=== PATIENT | male | born 1945 | race Caucasian/White ===

== ENCOUNTER 2019-07-13 12:23 | Emergency (ER) | payer OTHER ==
--- OUTSIDE RECORDS SUMMARY | 2019-07-13 13:12 | XMS REPORT | Encounter Summary ---
:1945 Author Care Team Providers Name Role Phone Hernandez Mancuso MD Primary Care Provider [phone] Reason for Visit Diabetic neuropathy; Diabetic on insulin ; Telemedicine Visit Instructions 1. Diabetic neuropathy 2. Hyperlipidemia high cholesterol: care ins tructions 3. Recurrent major depression in remission 4. Diabetic on insulin Discussion Note Completed a telephone visit with ney millan. Patient report he has enough meds currently and does not need any refills currently. Patient encouraged to wash hands frequently for 20 seconds, practice soci al distancing by stay home and maintaining physical space in public. Patient encour aged to seek medical care if he starts having continues cough, fever and sob. Patient verbalized understanding. Plan of Care Reminders Provider Appointments None recorded. Lab None recorded. Referral None recorded. Procedures None recorded. Surgeries None recorded. Imaging None recorded. Medications Name Start Date gabapentin 300 mg capsule Take 1 capsule 3 times a day by oral route. lovastatin 20 mg tablet Take 1 tablet every day by oral route. metformin 1,000 mg tablet Take 1 tablet twice a day by oral route. Tresiba FlexTouch U-100 insulin 100 unit/mL (3 mL) sub cutaneous pen Inject 15 units by subcutaneous route. Zoloft 100 mg tablet Take 1 tablet every day by oral route. Medications Administered None recorded. Vitals None recorded. Results Lab Results None recorded. Allergies Code Code System Name Reaction Severity Status Onset NKDA Problems Name Status Onset Date Source Diabetic Neuropathy Active 05/13/2019 Hyperlipidemia Active 05/13/2019 Recurrent Major Depression in Remission Active 05/13/19 20 Diabetic on Insulin Active 05/13/2019 Procedures None recorded. Vaccine List Vaccine Type influenza, injectable, quadrivalent 11/25/2018 Social History Tobacco Smoking Status Former Smoker Past Encounters 05/25/2019 Diabetic Neuropathy; Hyperlipidemia; Rec urrent Major Depression in Remission; Diabetic on Insulin Natasha Alexandre, TYPEWRITER ASSEMBLER: [address], [address], [place] [address], Ph. History of Present Illness Note: I confirm that I received verbal consent from the patient for the virtual visit. {{yes*|no}}
I confirm that I received verbal consent from the patient for the virtual visit. Review of Systems Comprehensive General Adult ROS Reported By: Patient Constitutional: Constitutional: no fever, no night sweats, no significant weight gain, no significant weight loss, no exercise intolerance Eyes: Eyes: no dry eyes, no vision change, no irritation ENMT: Ears: no difficulty hearing, no ear pain. Nose: no frequent nosebleeds, no nose problems , no sinus problems. Mouth/Throat: no sore throat, no bleeding gums, no snoring, no dry mouth, no mouth ulcers, no oral abnorm alities, no teeth problems Cardiovascular: Cardiovascular: no chest pato n, no arm pain on exertion, no shortness of breath when [place], no shortness of breath when lying down, no palpitations, no known heart murmur, no lightheadedness Respiratory: Respiratory: no cough, no wh eezing, no shortness of breath, no coughing up blood, no sleep apnea Gastrointestinal: Gastrointestinal: no abdomin al pain, no nausea, no vomiting, no constipation, normal appe tite, no diarrhea, not vomiting blood, no dyspepsia, no GERD Genitourinary: Genitourinary: no incontinen ce, no difficulty urinating, no hematuria, no increased freq uency Musculoskeletal: Musculoskeletal: no muscle a ches, no muscle weakness, no arthralgias/joint pain, no b ack pain, no swelling in the extremities Integumentary: Skin: no abnormal mole, no j aundice, no rashes, no laceration Neurologic: Neurologic: no loss of consc iousness, no weakness, no numbness, no seizures, no di zziness, no migraines, no headaches, no tremor Psychiatric: Psych: no depression, no sle ep disturbances, feeling safe in a relationship, no alcohol abu se, no anxiety, no hallucinations, no suicidal thoughts Endocrine: Endocrine: no fatigue Hematologic/Lymphatic: Hematologic/Lymphatic no swo llen glands, no bruising, no excessive bleeding Allergic/Immunologic: Allergy/Immunologic: no runn y nose, no sinus pressure, no itching, no hives, no freque nt sneezing Physical Exam Telemedicine/Virtual Visit Reported By: Patient"
--- OUTSIDE RECORDS SUMMARY | 2019-07-13 13:12 | XMS REPORT ---
:[address] [facility] Address [address] [place] [address] [place] [address] Care Team Providers Name Role Phone Unavailable Unavailable Unavailable Problems Condition Condition Condition Status Onset Resolution Last Treating Co mments Source Name Details Category Date Date Treatment Clinician Date Diabetic Diabetic Problem Active Decker ge neuropathy Neuropathy 3-18 Fa mecca 00:00: Practic 00 e Hyperlipid Hyperlipid Problem Active V [facility]age emia emia 3-18 Family 00:00: Practic 00 e Recurrent Recurrent Problem Active Jhoan josé miguel major Major 3-18 Family depression Depression 00:00: Pr actic in in 00 e remission Remission Diabetic Diabetic Problem Active Decker ge on insulin on Insulin 05-12 Fa mecca 00:00: Practic 00 e Allergies, Adverse Reactions, Alerts This patient has no known allergies or adverse reactions. Social History Smoking Status Start Date Stop Date Source Former [facility] Medications Ordered Filled Start Stop Current Ordering Indication Dosage Frequency Signature Comments Components Source Medication Medication Date Date Medication? Clinician (SIG) Name Name gabapentin gabapentin No 1capsul TID gabapentin [facility] 300 mg 300 mg e(s) 300 mg Family capsule capsule capsule Practi c Take 1 Take 1 Take 1 e capsule 3 capsule 3 capsule 3 times a day times a day times a by oral by oral day by route. route. oral route. lovastatin lovastatin No 1 Q1D lovastatin [facility] 20 mg 20 mg 20 mg Family tablet Take tablet Take tablet Practic 1 tablet 1 tablet Take 1 e every day every day tablet by oral by oral every day route. route. by oral route. metformin metformin No 1 BID metformin [facility] 1,000 mg 1,000 mg 1,000 mg Fam huber tablet Take tablet Take tablet Practic 1 tablet 1 tablet Take 1 e twice a day twice a day tablet by oral by oral twice a route. route. day by oral route. Tresiba Tresiba No 15unit( Tresiba Jhoan josé miguel FlexTouch FlexTouch s) FlexTouch Family U-100 U-100 U-100 Practic insulin 100 insulin 100 insulin e unit/mL (3 unit/mL (3 100 mL) mL) unit/mL (3 subcutaneou subcutaneou mL) s pen s pen subcutaneo Inject 15 Inject 15 us pen units by units by Inject 15 subcutaneou subcutaneou units by s route. s route. subcutaneo us route. Zoloft 100 Zoloft 100 No 1 Q1D Zoloft 100 [facility] mg tablet mg tablet mg tablet Family Take 1 Take 1 Take 1 Practic tablet tablet tablet e every day every day every day by oral by oral by oral route. route. route. Immunizations Ordered Immunization Filled Immunization Date Status Commen ts Source Name Name influenza, influenza, 2018-11-25 Completed Kunal Banegas injectable, injectable, 00:00:00 Practice quadrivalent quadrivalent Procedures This patient has no known procedures. 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 Results This patient has no known results.
--- OUTSIDE RECORDS SUMMARY | 2019-07-13 13:12 | XMS REPORT | Encounter Summary ---
:1945 Author Care Team Providers Name Role Phone Hernandez Mancuso MD Primary Care Provider [phone] Reason for Visit Diabetic neuropathy; Diabetic on [...] in Remission; Diabetic on Insulin Natasha Alexandre, ENGINE EMISSION TECHNICIAN: [address], [address], [place] [address], Ph. History of Present Illness Note: I [...] exertion, no shortness of breath when wal [place], no shortness of breath when lying down, [...]
[2019-07-13] MEDS ORDERED: LIDOCAINE VISCOUS 2% SOLN 15 ML UDC ONE (14:39)
[2019-07-13] MEDS ORDERED: IBUPROFEN 400 MG TAB ONE (14:41)
[2019-07-13] MEDS ORDERED: IBUPROFEN 200 MG TAB PO ONE (14:41)
[2019-07-13] MEDS ORDERED: predniSONE 20 MG TAB ONE (15:05)
--- NOTE | 2019-07-13 15:23 | ER ---
Nurse's Notes [facility] Name: Mati Aragon Age: 73 yrs Sex: Male : 1945 Arrival Date: 07/13/2019 Time: 12:27 Bed 17 Private MD: Diagnosis: Toxic effect of venom of wasps Presentation: 07/12 12:35 Chief complaint: Patient states: yellow jacket sting to R FA 30 minutes ago. ss Coronavirus screen: Proceed with normal triage. Patient denies a cough. Patient denies shortness of breath or difficulty breathing. Patient denies measured and/or subjective temperature greater than 100.4F prior to today's visit. Patient denies travel on a cruise ship or to a country the [facility] currently lists as an affected area. Patient denies contact with known and/or suspected case of COVID-19. Ebola Screen: Patient denies exposure to infectious person. Patient denies travel to an Ebola-affected area in the 21 days before illness onset. Onset: The symptoms/episode began/occurred 30 minute(s) ago. Anaphylaxis evaluation, the patient reports or I have noted the following symptoms which indicate a significant risk of anaphylaxis: no signs or symptoms of anaphylaxis were noted. Initial Sepsis Screen: Does the patient meet any 2 criteria? No. Patient's initial sepsis screen is negative. Does the patient have a suspected source of infection? No. Patient's initial sepsis screen is negative. Risk Assessment: Do you want to hurt yourself or someone else? Patient reports no desire to harm self or others. Onset of symptoms was July 13, 2019. 12:35 Method Of Arrival: Ambulatory ss 12:35 Acuity: ROSIE 4 ss Historical: - Allergies: 12:37 No Known Allergies; ss - Immunization history:: Adult Immunizations up to date. - Social history:: Smoking status: Patient denies any tobacco usage or history of. Screenin:29 Abuse screen: Denies threats or abuse. Nutritional screening: No deficits noted. tw2 Tuberculosis screening: No symptoms or risk factors identified. Fall Risk None identified. Assessment: 14:22 General: Appears uncomfortable, slender, well groomed, Behavior is cooperative, tw2 anxious. Pain: Complains of pain in dorsal aspect of right forearm Pain began "as soon as that yellow jacket stung me it started hurting like a hot fire poker is poking right into my arm, i didn't have any Benadryl or i would have took some but i drove myself here today too". Neuro: Level of Consciousness is awake, alert, obeys commands, Oriented to person, place, time, situation. Cardiovascular: Heart tones S1 S2 Patient's skin is warm and dry. Respiratory: Airway is patent Respiratory effort is even, unlabored, Respiratory pattern is regular, symmetrical, Breath sounds are clear bilaterally. Denies cough, shortness of breath labored breathing. GI: No signs and/or symptoms were reported involving the gastrointestinal system. Abdomen is flat, distended, Bowel sounds present X 4 quads. : No signs and/or symptoms were reported regarding the genitourinary system. EENT: No signs and/or symptoms were reported regarding the EENT system. Derm: quarter size redness noted to palmar wrist area. Musculoskeletal: Circulation, motion, and sensation intact. Range of motion: intact in all extremities. 15:01 Reassessment: Patient appears in no apparent distress at this time. No changes from tw2 previously documented assessment. Patient and/or family updated on plan of care and expected duration. Pain level reassessed. Patient is alert, oriented x 3, equal unlabored respirations, skin warm/dry/pink. 15:37 Reassessment: Patient appears in no apparent distress at this time. No changes from tw2 previously documented assessment. Patient and/or family updated on plan of care and expected duration. Pain level reassessed. Patient is alert, oriented x 3, equal unlabored respirations, skin warm/dry/pink. 15:38 Reassessment: pt states " i gotta go dip i just gotta get outta here". tw2 Vital Signs: 12:35 BP 125 / 63; Pulse 91; Resp 18; Temp 98.4(TE); Pulse Ox 96% on R/A; Weight 83.46 kg; ss Height 5 ft. 10 in. (177.80 cm); 14:27 BP 134 / 56; Pulse 76; Resp 17; Pulse Ox 98% on R/A; Pain 10/10; tw2 12:35 Body Mass Index 26.40 (83.46 kg, 177.80 cm) ED Course: 12:27 Patient arrived in ED. mr 12:37 Triage completed. ss 12:37 Arm band placed on right wrist. ss 13:25 Bed in low position. Call light in reach. Pulse ox on. NIBP on. tw2 13:32 Patrica Paulino, RN is Primary Nurse. tw2 14:30 Baldemar Mace PA is PHCP. cp 14:30 Chirag Bryan MD is Attending Physician. cp 15:37 No provider procedures requiring assistance completed. Patient did not have IV access tw2 during this emergency room visit. Administered Medications: 14:34 CANCELLED (Duplicate Order): Ibuprofen 800 mg PO once tw2 14:37 Drug: Lidocaine Gel 2 % 1 ea {Note: topical to bite area inner Right wrist.} Volume: 15 tw2 ml; Route: Mucous Membrane; 14:58 Not Given (Patient Refused; pt states "i dont want the ibuprofen"): Ibuprofen 600 mg PO tw2 once 15:04 Drug: predniSONE 40 mg Route: PO; tw2 15:37 Follow up: Response: No adverse reaction tw2 Outcome: 15:23 Discharge ordered by MD. cp 15:37 Discharged to home ambulatory. tw2 15:37 Condition: stable 15:37 Discharge instructions given to patient, Instructed on discharge instructions, follow up and referral plans. medication usage, Demonstrated understanding of instructions, follow-up care, medications, Prescriptions given X 1. 15:39 Patient left the ED. tw2 Signatures: Charley Vizcaino Shelby RN Baldemar Finnegan PA PA cp Patrica Paulino RN RN tw2
--- NOTE | 2019-07-13 15:24 | EDPHYS ---
Physician Documentation [facility] Name: Mati Aragon Age: 73 yrs Sex: Male : 1945 Arrival Date: 07/13/2019 Time: 12:27 Bed 17 Private MD: ED Physician Chirag Bryan HPI: 07/12 14:40 This 73 yrs old Male presents to ER via Ambulatory with complaints of Bee cp Sting. 14:40 The patient or guardian complains of a bite, wasp sting, pain, that is acute. The cp complaints affect the palmar aspect of right forearm. Onset: The symptoms/episode began/occurred this morning. 14:40 Patient reports pain and burning to area of right forearm where he was stung by wasp. cp Patient concerned due to have anaphylactic type reaction as child after being stung by bee. Historical: - Allergies: 12:37 No Known Allergies; ss - Immunization history:: Adult Immunizations up to date. - Social history:: Smoking status: Patient denies any tobacco usage or history of. ROS: 14:50 Skin: Positive for erythema, swelling, insect sting right forearm. cp 14:50 Constitutional: Negative for fever. cp 14:50 ENT: Negative for sore throat, difficulty swallowing, difficulty handling secretions. 14:50 Respiratory: Negative for cough, shortness of breath, wheezing. 14:50 Abdomen/GI: Negative for nausea, vomiting. 14:50 MS/extremity: Positive for pain, of the right forearm, burning, Negative for decreased range of motion, deformity, paresthesias. 14:50 Neuro: Negative for altered mental status, headache, syncope, weakness. 14:50 All other systems are negative. Exam: 14:45 Constitutional: The patient appears in no acute distress, alert, awake, cp non-diaphoretic, non-toxic, well developed, well nourished, anxious. 14:45 Head/Face: Normocephalic, atraumatic. cp 14:45 Eyes: Periorbital structures: appear normal, Conjunctiva: normal, no exudate, no injection, Lids and lashes: appear normal, bilaterally. 14:45 ENT: External ear(s): are unremarkable, Nose: is normal, Mouth: Lips: moist, Oral mucosa: moist, Posterior pharynx: Airway: no evidence of obstruction, patent, Voice: is normal. 14:45 Chest/axilla: Inspection: normal. 14:45 Cardiovascular: Rate: normal, Edema: is not appreciated. 14:45 Respiratory: the patient does not display signs of respiratory distress, Respirations: normal, no use of accessory muscles, no retractions, labored breathing, is not present, Breath sounds: are clear throughout, no decreased breath sounds, no wheezing. 14:45 Skin: injury, wasp sting noted right forearm with mild swelling and erythema noted. Vital Signs: 12:35 BP 125 / 63; Pulse 91; Resp 18; Temp 98.4(TE); Pulse Ox 96% on R/A; Weight 83.46 kg; ss Height 5 ft. 10 in. (177.80 cm); 14:27 BP 134 / 56; Pulse 76; Resp 17; Pulse Ox 98% on R/A; Pain 10/10; tw2 12:35 Body Mass Index 26.40 (83.46 kg, 177.80 cm) ss MDM: 14:34 Patient medically screened. cp 14:45 Differential diagnosis: abscess, cellulitis, localized allergic reaction, anaphylaxis. cp 15:22 Data reviewed: vital signs, nurses notes, and as a result, I will discharge patient. cp Administered Medications: 14:34 CANCELLED (Duplicate Order): Ibuprofen 800 mg PO once tw2 14:37 Drug: Lidocaine Gel 2 % 1 ea {Note: topical to bite area inner Right wrist.} Volume: 15 tw2 ml; Route: Mucous Membrane; 14:58 Not Given (Patient Refused; pt states "i dont want the ibuprofen"): Ibuprofen 600 mg PO tw2 once 15:04 Drug: predniSONE 40 mg Route: PO; tw2 15:37 Follow up: Response: No adverse reaction tw2 Disposition: 15:35 Chart complete. cp Disposition: 07/13/19 15:23 Discharged to Home. Impression: Toxic effect of venom of wasps. - Condition is Stable. - Discharge Instructions: Bee, Wasp, or Hornet Sting, Adult. - Prescriptions for Prednisone 20 mg Oral Tablet - take 2 tablet by ORAL route once daily for 5 days; 10 tablet. - Medication Reconciliation Form, Thank You Letter, Antibiotic Education, Prescription Opioid Use form. - Follow up: Private Physician; When: 1 - 2 days; Reason: Worsening of condition. - Problem is new. - Symptoms have improved. Addendum: 07/20/2019 07:07 Co-signature as Attending Physician, Chirag Bryan MD. r n Signatures: Chirag Bryan MD MD rn Smirch, Shelby, RN RN ss Page, Corey, PA PA cp Patrica Paulino RN RN tw2 Corrections: (The following items were deleted from the chart) 07/12 14:34 14:33 Ibuprofen 800 mg PO once ordered. tw2 tw2 14:34 14:34 Ibuprofen 800 mg PO once ordered. tw2 tw2 15:39 15:23 07/13/2019 15:23 Discharged to Home. Impression: Toxic effect of venom of wasps. tw2 Condition is Stable. Forms are Medication Reconciliation Form, Thank You Letter, Antibiotic Education, Prescription Opioid Use. Follow up: Private Physician; When: 1 - 2 days; Reason: Worsening of condition. Problem is new. Symptoms have improved. cp
[2019-07-13 15:44] VITALS: TEMP 98.4
[2019-07-13 15:45] VITALS: BP 134/56; O2SAT 98
== END 2019-07-13 15:39 | disposition home or self-care (01) ==
LOC: ER 12:23
DX: T63.461A Toxic effect of venom of wasps, accidental (unintentional), initial encounter (principal); Y92.9 Unspecified place or not applicable
CPT/HCPCS: 99283; J7512

== ENCOUNTER 2019-07-16 14:33 | Emergency (ER) | payer OTHER ==
--- OUTSIDE RECORDS SUMMARY | 2019-07-16 14:42 | XMS REPORT ---
:1945 Author Organization [facility] Address [address] [place] [address] Care Team Providers Name Role Phone Unavailable [...] Active Decker ge on insulin on Insulin 18 Fa mecca 00:00: Practic 00 e Allergies, Adverse Reactions, Alerts This patient has no known allergies or adverse reactions. Social History Smoking Status Start Date Stop Date Source Former [facility] Medications Ordered Filled Start Stop Current Ordering Indication Dosage Frequency Signature Comments Components Source Medication Medication Date Date Medication? Clinician (SIG) Name Name gabapentin gabapentin No 1capsul TID gabapentin [facility] 300 mg 300 mg e(s) 300 mg Family capsule capsule capsule Practi c Take 1 Take 1 Take 1 e capsule 3 capsule 3 capsule 3 times a day times a day times a by oral by oral day by route. route. oral route. lovastatin lovastatin No 1 Q1D lovastatin [facility] 20 mg 20 mg 20 mg Family tablet Take tablet Take tablet Practic 1 tablet 1 tablet Take 1 e every day every day tablet by oral by oral every day route. route. by oral route. 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 Results This patient has no known results.
[2019-07-16] MEDS ORDERED: LORazepam 2 MG/ML VIAL ONE (15:39)
[2019-07-16] MEDS ORDERED: ONDANSETRON 4 MG/2 ML VIAL ONE (15:43)
[2019-07-16] MEDS ORDERED: FENTANYL CITR 100 MCG/2 ML ONE (15:43)
[2019-07-16] MEDS ORDERED: NA CHLORIDE 0.9% 1,000 ML ONE ×2 (15:55→17:50)
[2019-07-16 15:57] LABS: Absolute Lymphocytes (CBC) 2.9 K/uL (0.7-4.9); Basophils % 0.4 % (0-1.3); Hematocrit 35.7 % (39.6-49.0); Lymphocytes % 25.3 % (15.3-44.8); RBC Red Blood Cell Count 4.17 M/uL (4.33-5.43)
[2019-07-16 15:58] LABS: Protime INR 1.1
--- NOTE | 2019-07-16 16:00 | RAD REPORT ---
EXAM DESCRIPTION: CT - Head Brain Wo Cont - 07/16/2019 3:52 pm CLINICAL HISTORY: Alteration of awareness/confusion COMPARISON: None TECHNIQUE: Computed axial tomography of the head was obtained. IV contrast was not requested. All CT scans are performed using dose optimization technique as appropriate and may include automated exposure control or mA/KV adjustment according to patient size. FINDINGS: An intracranial bleed is not seen . The ventricles are normal in caliber. No extra-axial fluid collection is noted. Mild left maxillary sinusitis. IMPRESSION: No acute intracranial abnormality is seen. If patient's symptoms persist MRI of the bra in would be recommended.
--- NOTE | 2019-07-16 16:22 | RAD REPORT ---
EXAM DESCRIPTION: Herminio Single View07/16/2019 4:00 pm CLINICAL HISTORY: Chest pain COMPARISON: none FINDINGS: The lungs appear clear of acute infiltrate. The heart is normal size IMPRESSION: No acute abnormalities displayed
[2019-07-16 16:37] LABS: ALT/SGPT 25 U/L (12-78); AST/SGOT 38 U/L (15-37); Albumin 3.8 g/dL (3.4-5.0); Alkaline Phosphatase 76 U/L (45-117); BUN Blood Urea Nitrogen 38 mg/dL (7-18); Bicarbonate 20 mmol/L (21-32); Bilirubin Direct 0.2 mg/dL (0-0.2); Bilirubin Total 0.5 mg/dL (0.2-1.0); Creatine Phosphokinase 457 U/L (39-308); Glucose Level 82 mg/dL (74-106); Magnesium 1.8 mg/dL (1.8-2.4); NT PRO-BNP 260 pg/mL (<125); Potassium 4.1 mmol/L (3.5-5.1); Protein, Total 8.1 g/dL (6.4-8.2); Sodium Level 138 mmol/L (136-145); Troponin (Emerg Dept Use Only) < 0.02 ng/mL (0.0-0.045)
[2019-07-16 17:08] LABS: Barbiturates NEGATIVE (NEGATIVE); Benzodiazepines NEGATIVE (NEGATIVE); Cocaine NEGATIVE (NEGATIVE); METHAMPHETAM NEGATIVE (NEGATIVE); Methadone NEGATIVE (NEGATIVE); Opiates NEGATIVE (NEGATIVE); Phencyclidine NEGATIVE (NEGATIVE); THC Cannibis NEGATIVE (NEGATIVE)
[2019-07-16 17:31] LABS: Urine Bacteria NONE SEEN /HPF (NONE SEEN); Urine RBC NONE SEEN /HPF (NONE SEEN)
[2019-07-16 17:32] LABS: Urine Culture Reflex Order NOT NEEDED
[2019-07-16 17:32] LABS: Urine Blood NEGATIVE (NEG); Urine Glucose NEGATIVE (NEG); Urine Protein NEGATIVE (NEG)
[2019-07-16] MEDS ORDERED: TETRACAINE HCL 0.5% 4ML OPTH ONE (17:50)
[2019-07-16] MEDS ORDERED: FLUORESCEIN SODIUM 1 MG/WRAP ONE (17:52)
--- NOTE | 2019-07-16 18:21 | RAD REPORT ---
EXAM DESCRIPTION: CTHead angio07/16/2019 5:56 pm CLINICAL HISTORY: Visual disturbance COMPARISON: None TECHNIQUE: CT angiogram of the head was obtained. 3D MIPS reconstruction performed. All CT scans are performed using dose optimization technique as appropriate and may include automated exposure control or mA/KV adjustment according to patient size. FINDINGS: The basilar, internal carotid, anterior cerebral, middle cerebral and left posterior cereb ral arteries are normal caliber. An aneurysm is not seen. Right posterior cerebral arterial branches are mildly diminished in caliber when compared to the left IMPRESSION: Right posterior cerebral arterial branches are mildly diminished in caliber when compare d to the left. This probably is not an acute/significant finding. However if the patient does have cl inical symptoms to suggest right posterior cerebral artery pathology MRI of the brain would be recomm ended
--- NOTE | 2019-07-16 19:00 | ER ---
Nurse's Notes [facility] Name: Mati Aragon Age: 73 yrs Sex: Male : 1945 Arrival Date: 07/16/2019 Time: 14:35 Bed 5 Private MD: Diagnosis: Injury of conjunctiva and corneal abrasion without foreign body;Altered mental status, unspecified Presentation: 07/15 14:56 Chief complaint: Patient's son or daughter states: Daughter, Anita, reports he feels jl7 like there is something is both of his eyes moving around, neighbor flushed them several times but no improvement. Daughter reports pt is acting out of the norm. BGL in triage 78. Coronavirus screen: Proceed with normal triage. Patient denies a cough. Patient denies shortness of breath or difficulty breathing. Patient denies measured and/or subjective temperature greater than 100.4F prior to today's visit. Patient denies travel on a cruise ship or to a country the [facility] currently lists as an affected area. Patient denies contact with known and/or suspected case of COVID-19. Ebola Screen: No symptoms or risks identified at this time. Mechanism of Injury: No Mechanism of Injury. Initial Sepsis Screen: Does the patient meet any 2 criteria? No. Patient's initial sepsis screen is negative. Does the patient have a suspected source of infection? No. Patient's initial sepsis screen is negative. Risk Assessment: Do you want to hurt yourself or someone else? Patient reports no desire to harm self or others. Onset of symptoms was July 16, 2019. Care prior to arrival: None. 14:56 Method Of Arrival: Wheelchair jl7 14:56 Acuity: ROSIE 3 jl7 Historical: - Allergies: 15:04 No Known Allergies; jl7 - Home Meds: 15:08 Tresiba FlexTouch U-100 100 unit/mL (3 mL) subcutaneous inpn [Active]; metformin 1,000 jl7 mg oral TG24 1 tab 2 times per day [Active]; levothyroxine 50 mcg tab 1 tab once daily [Active]; Zoloft 100 mg Oral tab 1 tab once daily [Active]; gabapentin 300 mg oral cap 3 times per day [Active]; lovastatin 20 mg Oral tab [Active]; aspirin 81 mg Oral TbEC 1 tab once daily [Active]; Ambien 10 mg Oral tab [Active]; - PMHx: 15:08 Diabetes - IDDM; jl7 15:08 Hyperlipidemia; Hypothyroidism; jl7 - Immunization history:: Adult Immunizations up to date. - Social history:: Smoking status: Patient denies any tobacco usage or history of. Screenin:10 Abuse screen: Denies threats or abuse. Nutritional screening: No deficits noted. rb1 Tuberculosis screening: No symptoms or risk factors identified. Fall Risk None identified. Assessment: 15:10 General: Appears distressed, Behavior is anxious, Denies fever. Pain: Complains of pain rb1 in bilateral eyes. 15:10 Neuro: Level of Consciousness is awake, alert, obeys commands, Daughter reports that rb1 his behavior is abnormal. . Cardiovascular: Capillary refill < 3 seconds. Respiratory: Airway is patent Respiratory effort is even, unlabored, Respiratory pattern is regular, symmetrical. GI: No signs and/or symptoms were reported involving the gastrointestinal system. : Reports burning with urination, Reports his urine stream starts but will stop and then start again. EENT: Eyes C/o pain when he tries to open his eyes and it feels like he has something is in his eyes.. Sclera/Cornea are clear in bilateral eyes. Derm: Skin is pink, warm \T\ dry. Musculoskeletal: Range of motion: intact in all extremities. 16:00 Reassessment: Pt. in CT. rb1 16:16 Reassessment: Patient appears in no apparent distress at this time. Patient and/or rb1 family updated on plan of care and expected duration. Pain level reassessed. Patient is alert, oriented x 3, equal unlabored respirations, skin warm/dry/pink. Patient states symptoms have improved. 17:12 Reassessment: Patient appears in no apparent distress at this time. No changes from rb1 previously documented assessment. 18:19 Reassessment: Patient appears in no apparent distress at this time. Patient and/or rb1 family updated on plan of care and expected duration. Pain level reassessed. Patient is alert, oriented x 3, equal unlabored respirations, skin warm/dry/pink. Patient states symptoms have improved. Vital Signs: 14:56 BP 129 / 60; Pulse 89; Resp 19; Temp 97.2; Pulse Ox 99% ; jl7 16:15 BP 119 / 54; Pulse 65; Resp 12; Pulse Ox 97% ; rb1 17:45 BP 117 / 66; Pulse 61; Resp 16; Pulse Ox 100% on R/A; rb1 18:25 BP 121 / 60; Pulse 68; Resp 13; Pulse Ox 100% ; rb1 ED Course: 14:35 Patient arrived in ED. as 15:04 Triage completed. jl7 15:08 Arm band placed on right wrist. jl7 15:10 Shaji Iverson PA is PHCP. jr8 15:10 Ken Li MD is Attending Physician. jr8 15:10 Patient has correct armband on for positive identification. Bed in low position. Call rb1 light in reach. Side rails up X2. monitoring analyst on. Pulse ox on. NIBP on. Warm blanket given. 15:10 Inserted saline lock: 20 gauge in right antecubital area, using aseptic technique. rb1 ,using aseptic technique. IV started by Zayra Blood collected. 15:11 Ivy Pierce, RN is Primary Nurse. rb1 15:53 CT Head Brain wo Cont In Process Unspecified. EDMS 15:59 XRAY Chest (1 view) In Process Unspecified. EDMS 17:57 CT Head Angio In Process Unspecified. EDMS 18:59 Shin Miller MD is Referral Physician. jr8 18:59 Jey King MD is Referral Physician. jr8 19:19 No provider procedures requiring assistance completed. IV discontinued, intact, rb1 bleeding controlled, No redness/swelling at site. Pressure dressing applied. Administered Medications: 15:35 Drug: Ativan 1 mg Route: IVP; Site: right antecubital; rb1 15:55 Follow up: Response: No adverse reaction; Anxiety decreased rb1 15:40 Drug: fentaNYL (PF) 50 mcg Route: IVP; Site: right antecubital; rb1 15:55 Follow up: Response: No adverse reaction; Pain is decreased rb1 15:40 Drug: Zofran (Ondansetron) 4 mg Route: IVP; Site: right antecubital; rb1 15:55 Follow up: Response: No adverse reaction rb1 16:10 Drug: NS 0.9% 1000 ml Route: IV; Rate: 1000 ml; Site: right antecubital; rb1 17:45 Drug: NS 0.9% 1000 ml Route: IV; Rate: 1000 ml; Site: right antecubital; bp 17:52 Drug: Tetracaine Drops 0.5 % 1 drops Route: Ophthalmic; Site: both eyes; bp Output: 18:21 Urine: 100ml (Voided); Total: 100ml. rb1 Outcome: 19:00 Discharge ordered by . jr8 19:19 Discharged to home ambulatory, with family. rb1 19:19 Condition: stable 19:19 Discharge instructions given to patient, Instructed on discharge instructions, follow up and referral plans. medication usage, Demonstrated understanding of instructions, follow-up care, medications, Prescriptions given X 1. 19:21 Patient left the ED. rb1 Signatures: Dispatcher [employer] EDMS Gregoria Romo Josh, PA PA jr8 Ivy Pierce, RN RN rb1 Jazmine Villegas RN RN jl7 Maurilio Adorno RN RN bp
--- NOTE | 2019-07-16 19:01 | EDPHYS ---
Physician Documentation [facility] Name: Mati Aragon Age: 73 yrs Sex: Male : 1945 Arrival Date: 07/16/2019 Time: 14:35 Bed 5 Private MD: ED Physician Ken Li HPI: 07/15 16:57 This 73 yrs old Male presents to ER via Wheelchair with complaints of Eye jr8 Problem/pain all over. 16:57 Patient stated that he feels like there is something in both his eyes. Denies getting jr8 anything in them. Had neighbor flush them. Stated that he has pain all over as well. Denies being in contact with an chemicals. Family member that is with patient stated that he is acting very different then what he normally does. Patient appears very agitated and uncomfortable in exam Room. Keeps holding back of neck. Severity of symptoms: At their worst the symptoms were moderate in the emergency department the symptoms are unchanged. The patient has not experienced similar symptoms in the past. The patient has not recently seen a physician. Historical: - Allergies: 15:04 No Known Allergies; jl7 - Home Meds: 15:08 Tresiba FlexTouch U-100 100 unit/mL (3 mL) subcutaneous inpn [Active]; metformin 1,000 jl7 mg oral TG24 1 tab 2 times per day [Active]; levothyroxine 50 mcg tab 1 tab once daily [Active]; Zoloft 100 mg Oral tab 1 tab once daily [Active]; gabapentin 300 mg oral cap 3 times per day [Active]; lovastatin 20 mg Oral tab [Active]; aspirin 81 mg Oral TbEC 1 tab once daily [Active]; Ambien 10 mg Oral tab [Active]; - PMHx: 15:08 Diabetes - IDDM; jl7 15:08 Hyperlipidemia; Hypothyroidism; jl7 - Immunization history:: Adult Immunizations up to date. - Social history:: Smoking status: Patient denies any tobacco usage or history of. ROS: 16:57 ENT: Negative for injury, pain, and discharge, Neck: Negative for injury, pain, and jr8 swelling, Cardiovascular: Negative for chest pain, palpitations, and edema, Respiratory: Negative for shortness of breath, cough, wheezing, and pleuritic chest pain, Abdomen/GI: Negative for abdominal pain, nausea, vomiting, diarrhea, and constipation, Back: Negative for injury and pain, MS/Extremity: Negative for injury and deformity, Skin: Negative for injury, rash, and discoloration. 16:57 Constitutional: Positive for body aches. 16:57 Eyes: Positive for blurry vision, pain. 16:57 Neuro: Positive for altered mental status. Exam: 16:57 Head/Face: Normocephalic, atraumatic. Eyes: Pupils equal round and reactive to light, jr8 extra-ocular motions intact. Lids and lashes normal. Conjunctiva and sclera are non-icteric and not injected. Cornea within normal limits. Periorbital areas with no swelling, redness, or edema. ENT: Nares patent. No nasal discharge, no septal abnormalities noted. Tympanic membranes are normal and external auditory canals are clear. Oropharynx with no redness, swelling, or masses, exudates, or evidence of obstruction, uvula midline. Mucous membranes moist. Neck: Trachea midline, no thyromegaly or masses palpated, and no cervical lymphadenopathy. Supple, full range of motion without nuchal rigidity, or vertebral point tenderness. No Meningismus. Cardiovascular: Regular rate and rhythm with a normal S1 and S2. No gallops, murmurs, or rubs. Normal PMI, no JVD. No pulse deficits. Respiratory: Lungs have equal breath sounds bilaterally, clear to auscultation and percussion. No rales, rhonchi or wheezes noted. No increased work of breathing, no retractions or nasal flaring. Abdomen/GI: Soft, non-tender, with normal bowel sounds. No distension or tympany. No guarding or rebound. No evidence of tenderness throughout. Back: No spinal tenderness. No costovertebral tenderness. Full range of motion. Skin: Warm, dry with normal turgor. Normal color with no rashes, no lesions, and no evidence of cellulitis. 16:57 MS/ Extremity: Pulses equal, no cyanosis. Neurovascular intact. Full, normal range of motion. Neuro: Awake and alert, GCS 15, oriented to person, place, time, and situation. Cranial nerves II-XII grossly intact. Motor strength 5/5 in all extremities. Sensory grossly intact. 16:57 Constitutional: The patient appears alert, awake, agitated, uncomfortable. 17:38 ECG was reviewed by the Attending Physician. jr8 Vital Signs: 14:56 BP 129 / 60; Pulse 89; Resp 19; Temp 97.2; Pulse Ox 99% ; jl7 16:15 BP 119 / 54; Pulse 65; Resp 12; Pulse Ox 97% ; rb1 17:45 BP 117 / 66; Pulse 61; Resp 16; Pulse Ox 100% on R/A; rb1 18:25 BP 121 / 60; Pulse 68; Resp 13; Pulse Ox 100% ; rb1 Procedures: 18:57 Eye Exam: Tetracaine. jr8 MDM: 15:10 Patient medically screened. jr8 18:57 Data reviewed: vital signs, nurses notes, lab test result(s), EKG, radiologic studies, jr8 CT scan, plain films. Data interpreted: Pulse oximetry: on room air is 100 %. Interpretation: normal. Counseling: I had a detailed discussion with the patient and/or guardian regarding: the historical points, exam findings, and any diagnostic results supporting the discharge/admit diagnosis, lab results, radiology results, the need for outpatient follow up, an opthalmologist, a neurologist, to return to the emergency department if symptoms worsen or persist or if there are any questions or concerns that arise at home. Response to treatment: the patient's symptoms have markedly improved after treatment. ED course: Patient doing much better after medications. Unknown why he was acting altered earlier but now has resolved. Small abrasion to right cornea present. Recommended neurology f/u and optho f/u. Close monitor at home. Patient and daughter good with this . 07/15 15:30 Order name: Glucose, Ancillary Testing; Complete Time: 15:40 EDMS 07/15 15:38 Order name: Basic Metabolic Panel; Complete Time: 16:55 [facility] 07/15 15:38 Order name: CBC with Diff; Complete Time: 16: [facility] 07/15 15:38 Order name: LFT's; Complete Time: 16:55 [facility] 07/15 15:38 Order name: Magnesium; Complete Time: 16:55 [facility] 07/15 15:38 Order name: NT PRO-BNP; Complete Time: 16:55 [facility] 07/15 15:38 Order name: PT-INR; Complete Time: 16: [facility] 07/15 15:38 Order name: Troponin (emerg Dept Use Only); Complete Time: 16:55 [facility] 07/15 15:38 Order name: XRAY Chest (1 view); Complete Time: 16:26 rb1 07/15 15:39 Order name: CK; Complete Time: 16:55 jr8 07/15 15:39 Order name: CT Head Brain wo Cont; Complete Time: 16:09 jr8 07/15 15:39 Order name: UDS; Complete Time: 17:14 jr8 07/15 15:39 Order name: Urine Microscopic Only; Complete Time: 17:35 jr8 07/15 16:55 Order name: Urine Dipstick--Ancillary (enter results); Complete Time: 17:35 tt3 07/15 15:38 Order name: EKG; Complete Time: 15:40 rb1 07/15 15:38 Order name: Cardiac monitoring; Complete Time: 16:16 rb1 07/15 15:38 Order name: EKG - Nurse/Tech; Complete Time: 17:05 [facility] 07/15 15:38 Order name: IV Saline Lock; Complete Time: 15:42 [facility] 07/15 15:38 Order name: Labs collected and sent; Complete Time: 16:16 [facility] 07/15 15:38 Order name: O2 Per Protocol; Complete Time: 15:42 [facility] 07/15 15:38 Order name: O2 Sat Monitoring; Complete Time: 15:42 [facility] 07/15 15:39 Order name: Urine Dipstick-Ancillary (obtain specimen); Complete Time: 17:05 jr8 07/15 17:36 Order name: CT Head Angio; Complete Time: 18:36 jr8 EC:38 Rate is 57 beats/min. Rhythm is regular, Sinus bradycardia. QRS Hoffman is Normal. ID jr8 interval is normal at 162 msec. QRS interval is normal at 88 msec. QT interval is prolonged at 457 msec. No Q waves. T waves are Inverted in lead V1. T waves are Flattened in lead III. No ST changes noted. Clinical impression: Sinus bradycardia and No evidence of ischemia. Interpreted by me. Reviewed by me. Administered Medications: 15:35 Drug: Ativan 1 mg Route: IVP; Site: right antecubital; rb1 15:55 Follow up: Response: No adverse reaction; Anxiety decreased rb1 15:40 Drug: fentaNYL (PF) 50 mcg Route: IVP; Site: right antecubital; rb1 15:55 Follow up: Response: No adverse reaction; Pain is decreased rb1 15:40 Drug: Zofran (Ondansetron) 4 mg Route: IVP; Site: right antecubital; rb1 15:55 Follow up: Response: No adverse reaction rb1 16:10 Drug: NS 0.9% 1000 ml Route: IV; Rate: 1000 ml; Site: right antecubital; rb1 17:45 Drug: NS 0.9% 1000 ml Route: IV; Rate: 1000 ml; Site: right antecubital; bp 17:52 Drug: Tetracaine Drops 0.5 % 1 drops Route: Ophthalmic; Site: both eyes; bp Disposition: 19:23 Co-signature as Attending Physician, Ken Li MD I agree with the assessment and kdr plan of care. Disposition: 07/16/19 19:00 Discharged to Home. Impression: Injury of conjunctiva and corneal abrasion without foreign body, Altered mental status, unspecified. - Condition is Stable. - Discharge Instructions: Corneal Abrasion. - Prescriptions for Gentamicin 0.3 % Ophthalmic Drops - instill 2 drop by OPHTHALMIC route every 4 hours; 1 bottle. - Medication Reconciliation Form, Thank You Letter, Antibiotic Education, Prescription Opioid Use form. - Follow up: Shin Miller MD; When: 1 week; Reason: Recheck today's complaints, Continuance of care, Re-evaluation by your physician. Follow up: Jey King MD; When: 2 - 3 days; Reason: Recheck today's complaints, Continuance of care, Re-evaluation by your physician. - Problem is new. - Symptoms have improved. Signatures: Dispatcher [employer] EDVT Ken Li MD MD kdr Roszak, Josh, PA PA jr8 Ivy Pierce, RN RN rb1 Jazmine Villegas RN RN jl7 Maurilio Adorno RN RN bp Corrections: (The following items were deleted from the chart) 19:21 19:00 07/16/2019 19:00 Discharged to Home. Impression: Injury of conjunctiva and rb1 corneal abrasion without foreign body; Altered mental status, unspecified. Condition is Stable. Forms are Medication Reconciliation Form, Thank You Letter, Antibiotic Education, Prescription Opioid Use. Follow up: Shin Miller; When: 1 week; Reason: Recheck today's complaints, Continuance of care, Re-evaluation by your physician. Follow up: eJy King; When: 2 - 3 days; Reason: Recheck today's complaints, Continuance of care, Re-evaluation by your physician. Problem is new. Symptoms have improved. jr8
[2019-07-16 19:27] VITALS: TEMP 97.2
[2019-07-16 19:31] VITALS: O2SAT 100
[2019-07-16 19:32] VITALS: BP 121/60
--- NOTE | 2019-07-17 06:25 | EKG ---
Test Date: 2019-07-16 Test Time: 17:03:54 Travel Administrator: CASTILLO MEASUREMENT RESULTS: Intervals: Rate: 57 VT: 162 QRSD: 88 QT: 470 QTc: 457 [place]: P: 44 VT: 162 QRS: -21 T: 19 INTERPRETIVE STATEMENTS: Sinus bradycardia Otherwise normal ECG No previous ECG available for comparison Electronically Signed On 07-17-19 06:24:01 CDT by Hang Jung
== END 2019-07-16 19:21 | disposition home or self-care (01) ==
LOC: ER 14:33
DX: S05.02XA Injury of conjunctiva and corneal abrasion without foreign body, left eye, initial encounter (principal); S05.01XA Injury of conjunctiva and corneal abrasion without foreign body, right eye, initial encounter; X58.XXXA Exposure to other specified factors, initial encounter; Y93.9 Activity, unspecified; Y92.9 Unspecified place or not applicable; E11.9 Type 2 diabetes mellitus without complications; E78.5 Hyperlipidemia, unspecified; E03.9 Hypothyroidism, unspecified
CPT/HCPCS: 93005; 85025; 80048; 36415; 83735; 82550; 85610; 82947; 80076; 80307 ×8; 84484; 83880; 70450; 70496; 71045; 96375; 96374; 99284; Q9967; J3010; J7030 ×2; J2405; 81003; 81015

== ENCOUNTER 2020-09-23 06:32 | Day surgery (SDC) | payer OTHER ==
[2020-09-21 15:45] LABS: Absolute Lymphocytes (CBC) 2.1 K/uL (0.7-4.9); Basophils % 0.8 % (0-1.3); Hematocrit 37.9 % (39.6-49.0); Lymphocytes % 25.5 % (15.3-44.8); MPV 7.5 fL (7.6-11.3); RBC Red Blood Cell Count 4.42 M/uL (4.33-5.43)
--- NOTE | 2020-09-21 15:54 | RAD REPORT ---
EXAM DESCRIPTION: RAD - Chest Pa And Lat (2 Views) - 09/21/2020 3:40 pm CLINICAL HISTORY: preop COMPARISON: Chest Pa And Lat (2 Views) dated 07/28/2019; Chest Single View dated 07/16/2019 FINDINGS: No evidence of edema or pneumonia. The heart size is within normal limits.No acute osseous abnormality. No significant pleural effusions or pneumothorax. IMPRESSION: No acute cardiopulmonary disease.
[2020-09-23] MEDS ORDERED: CEFAZOLIN/SWI 1gm 1 GM/10 ML SYR ONE (07:15)
[2020-09-23] MEDS ORDERED: NA CHLORIDE 0.9% 1,000 ML ONE (07:15)
[2020-09-23] MEDS ORDERED: propofoL 200 MG/20 ML VIAL IV ONE (07:27)
[2020-09-23] MEDS ORDERED: LIDOCAINE 1% MPF 5 ML VIAL ONE (07:28)
[2020-09-23] MEDS ORDERED: FENTANYL CITR 100 MCG/2 ML ONE (07:28)
[2020-09-23] MEDS ORDERED: BUPIVACAINE 0.5% PF 10 ML VIAL ONE (07:38)
[2020-09-23 08:22] VITALS: TEMP 97.1
--- NOTE | 2020-09-23 09:21 | OP ---
Date of Procedure: 09/23/2020 Surgeon: Piyush Romo MD Preoperative Diagnosis: Infected upper back subcutaneous mass with purulent drainage and abscess. Postoperative Diagnosis: Infected upper back subcutaneous mass with purulent drainage and abscess. Procedure: Excisional biopsy of infected upper back subcutaneous mass, 4 x 4 cm. Anesthesia: General plus local. Findings: As above. Estimated Blood Loss: Less than 10 mL. Indication: This is the case of a 74-year-old patient with diabetes with above diagnosis. Fully exp lained the benefits, alternatives, and risks of excisional biopsy, infected subcutaneous mass with dr burns of an abscess, which include, but not limited to infection, bleeding, damage to adjacent struc tures, anesthesia complication, nonhealing wound, recurrence, AL, and even . He also understand s this may not relieve any symptoms. He might need more than one surgical intervention. He understo od, signed a consent. He also understands he will require wound care. He is ready for that. Procedure In Detail: The patient was brought to the operating room, placed supine position. Anesthe mario was done without complication. The patient was placed in lateral decubitus position with proper protection. Back area was prepped and draped in a sterile fashion. Local anesthesia was applied fol lowed by circumferential incision. This allowed me to remove the mass and then found the abscess und erneath. Loculations were explored open. The area was irrigated, hemostasis obtained, and the area was packed with wet-to-dry dressing. The patient tolerated the procedure well. The patient on his way to recovery in stable condition. RAN/ELAINE Voice ID: [id number] Report ID: [id number]
[2020-09-23 09:35] VITALS: BP 119/50; O2SAT 99
== END 2020-09-23 09:26 | disposition home or self-care (01) ==
LOC: OR 06:32
PROVIDERS: ATTEND Surgery
PROC: 0JB70ZZ Excision of Back Subcutaneous Tissue and Fascia, Open Approach (ICD-10-PCS; principal; 2020-09-23 07:30)
DX: L08.9 Local infection of the skin and subcutaneous tissue, unspecified (principal); R22.2 Localized swelling, mass and lump, trunk; L72.0 Epidermal cyst; E11.9 Type 2 diabetes mellitus without complications; E03.9 Hypothyroidism, unspecified; E78.00 Pure hypercholesterolemia, unspecified; E11.40 Type 2 diabetes mellitus with diabetic neuropathy, unspecified
CPT/HCPCS: 93005; 87070; 85025; 80048; 36415 ×2; 87205; 84132; 82947; 88304; 87075; 71046; 11404; J2704; J3010; J0690; J7030; 88305

== ENCOUNTER 2022-12-10 00:19 | Emergency (ER) | payer OTHER ==
--- OUTSIDE RECORDS SUMMARY | 2022-12-10 00:27 | XMS REPORT | Continuity of Care Document ---
:1945 Author Organization [facility] t Address [address] [facility] [address] [place] [id number] Care Team Providers Name Role Phone HEMANT SHRESTHA Attending Clinician Unavailable Handy Martinez MD Attending Clinician Hemant Shrestha MD Attending Clinician Only, Adc Test Attending Clinician Unavailable Pcp, Patient Does Not Have A Attending Clinician [phone] Laura-Norberto_A_AH Attending Clinician Unavailable Doctor Unassigned, [place] Attending Clinician Unavailable Pob, Adc Lab Main Attending Clinician Unavailable HEMANT SHRESTHA Admitting Clinician Unavailable Hemant Shrestha MD Admitting Clinician Baldomero_A_AH Admitting Clinician Unavailable Payers Payer Name Policy Type Policy Number Effective Date Expiration Date Trent kenyon [facility] [id number] 2019 00:00:00 [employer] [place] - [id number] 2019 [place] 00:00:00 (MEDICARE REPLACEMENT/ADVANT AGE - HMO) Problems Condition Condition Condition Status Onset Resolution Last Treating Co mments Source Name Details Category Date Date Treatment Clinician Date Migraine Migraine Problem Active 2019-02 Decker ge 0-12 Family 00:00: Practic 00 e Neck pain Neck Pain Problem Active 2019-02 Jhoan josé miguel 0-12 Family 00:00: Practic 00 e Neuropathy Neuropathy Problem Active [place] [facility] due to Due to 3-18 Family diabetes Diabetes 00:00: Practi c mellitus Mellitus 00 e Hyperlipid Hyperlipid Problem Active [place] emia emia 3-18 Family 00:00: Practic 00 e 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 Remission Diabetic Diabetic Problem Active Jeronimo saldana on insulin on Insulin 3-18 Fa [place] 00:00: Practic 00 e Allergies, Adverse Reactions, Alerts Allergy Allergy Status Severity Reaction(s) Onset Inactive Treating Comm ents Source Name Type Date Date Clinician NO KNOWN Drug Active [facility] ALLERGIE Class [facility] Social History Social Habit Start Date Stop Date Quantity Comments Source Sex Assigned At [facility] Exposure to Not sure [facility] SARS-CoV-2 [facility] (event) Tobacco use and 2020-01-05 2020-01-05 Current user [facility] exposure 00:00:00 00:00:00 [facility] Branch Smoking Status Start Date Stop Date Source Unknown if ever smoked [facility] Former smoker 2020-01-05 00:00:00 2020-01-05 00:00:00 [facility] Medications Ordered Filled Start Stop Current Ordering Indication Dosage Frequency Signature Comments Components Source Medication Medication Date Date Medication? Clinician (SIG) Name Name lactated 2019-02 2020- No 1000mL at 42 Unive rs ringers IV 03-05 11-09 mL/hr, ity of infusion 13:30: 13:28 1,000 mL, [place] 1,000 mL 00 :00 IV Medical Infusion, Branch ONCE, 1 dose, 01/04/20 at 0730, Routine, DSU Pre-op lactated 2019-02 Yes 1000mL at 50 Univer s ringers IV 0-26 mL/hr, ity of infusion 14:00: 1,000 [place] 1[place] mL 00 IV Medical Infusion, Branch CONTINUOUS , Starting 12/21/19 at 0900, Until Discontinu ed, Routine, PACU HYDROcodone 2019-02 2020- No 1{tbl} 1 tablet, Univers -acetaminop 0-26 10-27 Oral, ity of hen (NORCO 14:00: 01:59 ONCE, 1 [place] 5) 5-325 mg 00 :00 dose, Mon Med ical tablet 1 12/21/19 Branch tablet at 0900, Routine, PACU FENTanyl PF 2019-02 Yes 25ug 25 mcg, Uni vers (SUBLIMAZE 0-26 Slow IV ity of (PF)) 13:58: Push, [place] injection 50 Q5MIN PRN, Medi little 25 mcg 4 doses, Branch Starting Sat12/21/19 at 0858, Until Discontinu ed, Routine, Pain (scale 4-6), PACU triamcinolo 2019-02 Yes PRN, Univer s ne 0-26 Starting ity of acetonide 13:20: [facility] (KENALOG) 12/21/19 Medica l injection at 0820, Branch Until Discontinu ed, Routine, Intra-op lidocaine 2019-02 Yes PRN, Univers 1% 0-26 Starting ity of (XYLOCAINE) 13:20: [facility] 10 mg/mL (1 12/21/19 Medi little %) at 0820, Branch injection Until Discontinu ed, Routine, Intra-op iohexoL 2019-02 Yes PRN, Univers (OMNIPAQUE 0-26 Starting ity o f 350 BULK-50 13:20: Mon [place] mL) 12/21/19 Medical injection at 0820, Branch Until Discontinu ed, Routine, Intra-op bupivacaine 2019-02 Yes PRN, Univer s (preserv 0-26 Starting ity of free) 13:19: [facility] (SENSORCAIN 12/21/19 Medi little E MPF) 0.25 at 0819, Bran ch % (2.5 Until mg/mL) Discontinu injection ed, Routine, Intra-op ceFAZolin 2019-02 Yes 1000mg 1,000 mg, U nivers (ANCEF) 0-26 IV ity of 1,000 mg in 12:31: Piggyback, [place] NaCl 0.9% 23 [facility] Medical (NS) 50 mL HOLDING [place] MINI-BAG ONCE, 1 dose, Starting Sat12/21/19 at 0731, Until Discontinu ed, 50 mL
Reas on for Anti-Infec tive: Surgical Prophylaxi s
Surgi little Prophylaxi s: Neurosurge ry
Dura tion of therapy: within 24 hours of surgery lactated 2019-02 2020- No 1000mL at 42 Unive rs ringers IV 0-26 10-26 mL/hr, ity of infusion 12:15: 12:16 1,000 mL, [place] 1,000 mL 00 :00 IV Medical Infusion, Branch ONCE, 1 dose, [facility] 12/21/19 at 0715, Routine, DSU Pre-op lactated 2019-02 Yes 1000mL at 42 Univer s ringers IV 0-05 mL/hr, ity of infusion 13:45: 1,000 [place], [place] 1[place]000 mL 00 IV Medical Infusion, Branch CONTINUOUS , Starting Sat11/30/19 at 0845, Until Discontinu ed, Routine, PACU FENTanyl PF 2019-02 Yes 25ug 25 mcg, Uni vers (SUBLIMAZE 0-05 Slow IV ity of (PF)) 13:34: Push, [place] injection 20 Q5MIN PRN, Medi little 25 mcg 4 doses, Branch Starting 11/30/19 at 0834, Until Discontinu ed, Routine, Pain (scale 4-6), PACU ondansetron 2019-02 Yes 4mg 4 mg, Slow Univers (ZOFRAN 0-05 IV Push, ity of (PF)) 13:34: PRN, 1 [place] injection 4 20 dose, Medical mg Starting Branch Sat11/30/19 at 0834, Until Discontinu ed, Routine, Nausea and Vomiting (N/V), PACU triamcinolo 2019-02 Yes PRN, Univer s ne 0-05 Starting ity of acetonide 13:06: [facility] (KENALOG) 00 11/30/19 at Medi little injection 0806, Branch Until Discontinu ed, Routine, Intra-op lidocaine 2019-02 Yes PRN, Univers 1% 0-05 Starting ity of (XYLOCAINE) 13:06: [facility] 10 mg/mL (1 11/30/19 at [facility] %) 08, Branch injection Until Discontinu ed, Routine, Intra-op bupivacaine 2019-02 Yes PRN, [facility] s (preserv 0-05 Starting ity of free) 13:06: [facility] (SENSORCAIN 00 11/30/19 at [facility] d[facility] E MPF) 0.25 805, Branch % (2.5 Until mg/mL) Discontinu injection ed, Routine, Intra-op lactated 2019-02 2020- No 1000mL at 42 Unive rs ringers IV 0-05 10-05 mL/hr, ity of infusion 12:45: 12:36 1,000 mL, [place] 1,000 mL 00 :00 IV Medical Infusion, Branch ONCE, 1 dose, 11/29/20 at 0745, Routine, DSU Pre-op traMADoL 50 2020-0 Yes 50mg Take 50 mg Univers mg tablet 9-17 by mouth 2 ity of 00:00: (two) [place] 00 times Medical daily. Branch traMADoL 50 2020-0 Yes 50mg Take 50 mg Univers mg tablet 9-17 by mouth 2 ity of 00:00: (two) [place] 00 times Medical daily. Branch traMADoL 50 2020-0 Yes 50mg Take 50 mg Univers mg tablet 9-17 by mouth 2 ity of 00:00: (two) [place] 00 times Medical daily. Branch traMADoL 50 2020-0 Yes 50mg Take 50 mg Univers mg tablet 9-17 by mouth 2 ity of 00:00: (two) [place] 00 times Medical daily. Branch traMADoL 50 2020-0 Yes 50mg Take 50 mg Univers mg tablet 9-17 by mouth 2 ity of 00:00: (two) [place] 00 times Medical daily. Branch traMADoL 50 2020-0 Yes 50mg Take 50 mg Univers mg tablet 9-17 by mouth 2 ity of 00:00: (two) [place] 00 times Medical daily. Branch traMADoL 50 2020-0 Yes 50mg Take 50 mg Univers mg tablet 9-17 by mouth 2 ity of 00:00: (two) [place] 00 times Medical daily. Branch traMADoL 50 2020-0 Yes 50mg Take 50 mg Univers mg tablet 9-17 by mouth 2 ity of 00:00: (two) [place] 00 times Medical daily. Branch traMADoL 50 2020-0 Yes 50mg Take 50 mg Univers mg tablet 9-17 by mouth 2 ity of 00:00: (two) [place] 00 times Medical daily. Branch traMADoL 50 2020-0 Yes 50mg Take 50 mg Univers mg tablet 9-17 by mouth 2 ity of 00:00: (two) [place] 00 times Medical daily. Branch traMADoL 50 2020-0 Yes 50mg Take 50 mg Univers mg tablet 9-17 by mouth 2 ity of 00:00: (two) [place] 00 times Medical daily. Branch traMADoL 50 2020-0 Yes 50mg Take 50 mg Univers mg tablet 9-17 by mouth 2 ity of 00:00: (two) [place] 00 times Medical daily. Branch gabapentin 2020-0 Yes 600mg Take 600 Un scar 600 mg 9-05 mg by ity of tablet 00:00: mouth 2 [place] 00 (two) Medical times Branch daily. gabapentin 2020-0 Yes 600mg Take 600 Un scar 600 mg 9-05 mg by ity of tablet 00:00: mouth (two) Medical times Branch daily. gabapentin 2020-0 Yes 600mg Take 600 Un scar 600 mg 9-05 mg by ity of tablet 00:00: mouth (two) Medical times Branch daily. gabapentin 2020-0 Yes 600mg Take 600 Un scar 600 mg 9-05 mg by ity of tablet 00:00: mouth (two) Medical times Branch daily. gabapentin 2020-0 Yes 600mg Take 600 Un scar 600 mg 9-05 mg by ity of tablet 00:00: mouth (two) Medical times Branch daily. gabapentin 2020-0 Yes 600mg Take 600 Un scar 600 mg 9-05 mg by ity of tablet 00:00: mouth (two) Medical times Branch daily. gabapentin 2020-0 Yes 600mg Take 600 Un scar 600 mg 9-05 mg by ity of tablet 00:00: mouth (two) Medical times Branch daily. gabapentin 2020-0 Yes 600mg Take 600 Un scar 600 mg 9-05 mg by ity of tablet 00:00: mouth (two) Medical times Branch daily. gabapentin 2020-0 Yes 600mg Take 600 Un scar 600 mg 9-05 mg by ity of tablet 00:00: mouth (two) Medical times Branch daily. gabapentin 2020-0 Yes 600mg Take 600 Un scar 600 mg 9-05 mg by ity of tablet 00:00: mouth (two) Medical times Branch daily. gabapentin 2020-0 Yes 600mg Take 600 Un scar 600 mg 9-05 mg by ity of tablet 00:00: mouth (two) Medical times Branch daily. gabapentin 2020-0 Yes 600mg Take 600 Un scar 600 mg 9-05 mg by ity of tablet 00:00: mouth (two) Medical times Branch daily. levothyroxi 2020-0 Yes 50ug Take 50 Uni vers ne 50 mcg 9-02 mcg by ity of tablet 00:00: mouth every Medical morning. Branch lovastatin 2020-0 Yes 20mg Take 20 mg U nivers 20 mg 9-02 by mouth ity of tablet 00:00: daily. [place] [facility] metFORMIN 2020-0 Yes 1000mg Take 1,000 Univers 1,000 mg 9-02 mg by ity of tablet 00:00: mouth 2 [place] (two) Medical times [place] daily. levothyroxi 2020-0 Yes 50ug Take 50 Uni vers ne 50 mcg 9-02 mcg by ity of tablet 00:00: mouth [place] 00 every Medical morning. Branch lovastatin 2020-0 Yes 20mg Take 20 mg U nivers 20 mg 9-02 by mouth ity of tablet 00:00: daily. [place] [facility] Branch metFORMIN 2020-0 Yes 1000mg Take 1,000 Univers 1,000 mg 9-02 mg by ity of tablet 00:00: mouth 2 [place] (two) Medical times [place] daily. levothyroxi 2020-0 Yes 50ug Take 50 Uni vers ne 50 mcg 9-02 mcg by ity of tablet 00:00: mouth [place] every Medical morning. Branch lovastatin 2020-0 Yes 20mg Take 20 mg U nivers 20 mg 9-02 by mouth ity of tablet 00:00: daily. [place] [facility] Branch metFORMIN 2020-0 Yes 1000mg Take 1,000 Univers 1,000 mg 9-02 mg by ity of tablet 00:00: mouth 2 [place] (two) Medical times [place] daily. levothyroxi 2020-0 Yes 50ug Take 50 Uni vers ne 50 mcg 9-02 mcg by ity of tablet 00:00: mouth [place] every Medical morning. Branch lovastatin 2020-0 Yes 20mg Take 20 mg U nivers 20 mg 9-02 by mouth ity of tablet 00:00: daily. [address] metFORMIN 2020-0 Yes 1000mg Take 1,000 Univers 1,000 mg 9-02 mg by ity of tablet 00:00: mouth 2 [place] (two) Medical times [place] daily. levothyroxi 2020-0 Yes 50ug Take 50 Uni vers ne 50 mcg 9-02 mcg by ity of tablet 00:00: mouth [place] every Medical morning. Branch lovastatin 2020-0 Yes 20mg Take 20 mg U nivers 20 mg 9-02 by mouth ity of tablet 00:00: daily. [address] metFORMIN 2020-0 Yes 1000mg Take 1,000 Univers 1,000 mg 9-02 mg by ity of tablet 00:00: mouth 2 (two) Medical times Branch daily. levothyroxi 2020-0 Yes 50ug Take 50 Uni vers ne 50 mcg 9-02 mcg by ity of tablet 00:00: mouth 00 every Medical morning. Branch levothyroxi 2020-0 Yes 50ug Take 50 Uni vers ne 50 mcg 9-02 mcg by ity of tablet 00:00: mouth 00 every Medical morning. Branch lovastatin 2020-0 Yes 20mg Take 20 mg U nivers 20 mg 9-02 by mouth ity of tablet 00:00: daily. [place] [facility] Branch metFORMIN 2020-0 Yes 1000mg Take 1,000 Univers 1,000 mg 9-02 mg by ity of tablet 00:00: mouth 2 (two) Medical times [place] daily. lovastatin 2020-0 Yes 20mg Take 20 mg U nivers 20 mg 9-02 by mouth ity of tablet 00:00: daily. [place] [facility] Branch metFORMIN 2020-0 Yes 1000mg Take 1,000 Univers 1,000 mg 9-02 mg by ity of tablet 00:00: mouth [place] ([facility] Medical times [place] daily. levothyroxi 2020-0 Yes 50ug Take 50 Uni vers ne 50 mcg 9-02 mcg by ity of tablet 00:00: mouth every Medical morning. Branch lovastatin 2020-0 Yes 20mg Take 20 mg U nivers 20 mg 9-02 by mouth ity of tablet 00:00: daily. [place] [facility] Branch metFORMIN 2020-0 Yes 1000mg Take 1,000 Univers 1,000 mg 9-02 mg by ity of tablet 00:00: mouth [place] (two) Medical times [place] daily. levothyroxi 2020-0 Yes 50ug Take 50 Uni vers ne 50 mcg 9-02 mcg by ity of tablet 00:00: mouth 00 every Medical morning. Branch lovastatin 2020-0 Yes 20mg Take 20 mg U nivers 20 mg 9-02 by mouth ity of tablet 00:00: daily. [place] [facility] Branch metFORMIN 2020-0 Yes 1000mg Take 1,000 Univers 1,000 mg 9-02 mg by ity of tablet 00:00: mouth 2 (two) Medical times Branch daily. levothyroxi 2020-0 Yes 50ug Take 50 Uni vers ne 50 mcg 9-02 mcg by ity of tablet 00:00: mouth [place] 00 every Medical morning. Branch lovastatin 2020-0 Yes 20mg Take 20 mg U nivers 20 mg 9-02 by mouth ity of tablet 00:00: daily. Medical Branch metFORMIN 2020-0 Yes 1000mg Take 1,000 Univers 1,000 mg 9-02 mg by ity of tablet 00:00: mouth 2 (two) Medical times [place] daily. levothyroxi 2020-0 Yes 50ug Take 50 Uni vers ne 50 mcg 9-02 mcg by ity of tablet 00:00: mouth every Medical morning. Branch lovastatin 2020-0 Yes 20mg Take 20 mg U nivers 20 mg 9-02 by mouth ity of tablet 00:00: daily. Medical Branch metFORMIN 2020-0 Yes 1000mg Take 1,000 Univers 1,000 mg 9-02 mg by ity of tablet 00:00: mouth 2 (two) Medical times [place] daily. levothyroxi 2020-0 Yes 50ug Take 50 Uni vers ne 50 mcg 9-02 mcg by ity of tablet 00:00: mouth every Medical morning. Branch lovastatin 2020-0 Yes 20mg Take 20 mg U nivers 20 mg 9-02 by mouth ity of tablet 00:00: daily. Medical Branch metFORMIN 2020-0 Yes 1000mg Take 1,000 Univers 1,000 mg 9-02 mg by ity of tablet 00:00: mouth 2 (two) Medical times [place] daily. TRESIBA 2020-0 Yes 16U inject 16 Unive rs FLEXTOUCH 8-18 Units ity of U-100 100 00:00: under the [place] unit/mL (3 00 skin Medical mL) InPn daily. Branch MELVA PEN 2020-0 Yes 1{each} inject 1 Un scar NEEDLE 32 8-18 Each under ity of gauge x 00:00: the skin [place] 5/32" Ndle 00 daily. Medical Branch TRESIBA 2020-0 Yes 16U inject 16 Unive rs FLEXTOUCH 8-18 Units ity of U-100 100 00:00: under the [place] unit/mL (3 00 skin Medical mL) InPn daily. Branch MELVA PEN 2020-0 Yes 1{each} inject 1 Un scar NEEDLE 32 8-18 Each under ity of gauge x 00:00: the skin [place] 5/32" Ndle 00 daily. Medical Branch TRESIBA 2020-0 Yes 16U inject 16 Unive rs FLEXTOUCH 8-18 Units ity of U-100 100 00:00: under the [place] unit/mL (3 00 skin Medical mL) InPn daily. Branch MELVA PEN 2020-0 Yes 1{each} inject 1 Un scar NEEDLE 32 8-18 Each under ity of gauge x 00:00: the skin [place] 532" Ndle 00 daily. Medical Branch TRESIBA 2020-0 Yes 16U inject 16 Unive rs FLEXTOUCH 8-18 Units ity of U-100 100 00:00: under the [place] unit/mL (3 00 skin Medical mL) InPn daily. Branch MELVA PEN 2020-0 Yes 1{each} inject 1 Un scar NEEDLE 32 8-18 Each under ity of gauge x 00:00: the skin [place] 32" Ndle 00 daily. Medical Branch TRESIBA 2020-0 Yes 16U inject 16 Unive rs FLEXTOUCH 8-18 Units ity of U-100 100 00:00: under the [place] unit/mL (3 00 skin Medical mL) InPn daily. Branch MELVA PEN 2020-0 Yes 1{each} inject 1 Un scar NEEDLE 32 8-18 Each under ity of gauge x 00:00: the skin [place] " Ndle 00 daily. Medical Branch TRESIBA 2020-0 Yes 16U inject 16 Unive rs FLEXTOUCH 8-18 Units ity of U-100 100 00:00: under the [place] unit/mL (3 00 skin Medical mL) InPn daily. Branch TRESIBA 2020-0 Yes 16U inject 16 Unive rs FLEXTOUCH 8-18 Units ity of U-100 100 00:00: under the [place] unit/mL (3 00 skin Medical mL) InPn daily. Branch MELVA PEN 2020-0 Yes 1{each} inject 1 Un scar NEEDLE 32 8-18 Each under ity of gauge x 00:00: the skin [place] " Ndle 00 daily. Medical Branch TRESIBA 2020-0 Yes 16U inject 16 Unive rs FLEXTOUCH 8-18 Units ity of U-100 100 00:00: under the [place] unit/mL (3 00 skin Medical mL) InPn daily. Branch MELVA PEN 2020-0 Yes 1{each} inject 1 Un scar NEEDLE 32 8-18 Each under ity of gauge x 00:00: the skin [place] /32" Ndle 00 daily. Medical Branch TRESIBA 2020-0 Yes 16U inject 16 Unive rs FLEXTOUCH 8-18 Units ity of U-100 100 00:00: under the [place] unit/mL (3 00 skin Medical mL) InPn daily. Branch MELVA PEN 2020-0 Yes 1{each} inject 1 Un scar NEEDLE 32 8-18 Each under ity of gauge x 00:00: the skin [place] 5/32" Ndle 00 daily. Medical Branch MELVA PEN 2020-0 Yes 1{each} inject 1 Un scar NEEDLE 32 8-18 Each under ity of gauge x 00:00: the skin [place] 32" Ndle 00 daily. Medical Branch TRESIBA 2020-0 Yes 16U inject 16 Unive rs FLEXTOUCH 8-18 Units ity of U-100 100 00:00: under the [place] unit/mL (3 00 skin Medical mL) InPn daily. Branch MELVA PEN 2020-0 Yes 1{each} inject 1 Un scar NEEDLE 32 8-18 Each under ity of gauge x 00:00: the skin [place] 32" Ndle 00 daily. Medical Branch TRESIBA 2020-0 Yes 16U inject 16 Unive rs FLEXTOUCH 8-18 Units ity of U-100 100 00:00: under the [place] unit/mL (3 00 skin Medical mL) InPn daily. Branch MELVA PEN 2020-0 Yes 1{each} inject 1 Un scar NEEDLE 32 8-18 Each under ity of gauge x 00:00: the skin [place] 32" Ndle 00 daily. Medical Branch TRESIBA 2020-0 Yes 16U inject 16 Unive rs FLEXTOUCH 8-18 Units ity of U-100 100 00:00: under the [place] unit/mL (3 00 skin Medical mL) InPn daily. Branch MELVA PEN 2020-0 Yes 1{each} inject 1 Un scar NEEDLE 32 8-18 Each under ity of gauge x 00:00: the skin [place] /32" Ndle 00 daily. Medical Branch SUMAtriptan 2020-0 Yes 25mg Take 25 mg Univers 25 mg 8-12 by mouth ity of tablet 00:00: daily. [place] 00 Medical Branch SUMAtriptan 2020-0 Yes 25mg Take 25 mg Univers 25 mg 8-12 by mouth ity of tablet 00:00: daily. Medical Branch SUMAtriptan 2020-0 Yes 25mg Take 25 mg Univers 25 mg 8-12 by mouth ity of tablet 00:00: daily. Medical Branch SUMAtriptan 2020-0 Yes 25mg Take 25 mg Univers 25 mg 8-12 by mouth ity of tablet 00:00: daily. Medical Branch SUMAtriptan 2020-0 Yes 25mg Take 25 mg Univers 25 mg 8-12 by mouth ity of tablet 00:00: daily. Medical Branch SUMAtriptan 2020-0 Yes 25mg Take 25 mg Univers 25 mg 8-12 by mouth ity of tablet 00:00: daily. Medical Branch SUMAtriptan 2020-0 Yes 25mg Take 25 mg Univers 25 mg 8-12 by mouth ity of tablet 00:00: daily. Medical Branch SUMAtriptan 2020-0 Yes 25mg Take 25 mg Univers 25 mg 8-12 by mouth ity of tablet 00:00: daily. Medical Branch SUMAtriptan 2020-0 Yes 25mg Take 25 mg Univers 25 mg 8-12 by mouth ity of tablet 00:00: daily. Medical Branch SUMAtriptan 2020-0 Yes 25mg Take 25 mg Univers 25 mg 8-12 by mouth ity of tablet 00:00: daily. Medical Branch SUMAtriptan 2020-0 Yes 25mg Take 25 mg Univers 25 mg 8-12 by mouth ity of tablet 00:00: daily. Medical Branch SUMAtriptan 2020-0 Yes 25mg Take 25 mg Univers 25 mg 8-12 by mouth ity of tablet 00:00: daily. Medical Branch tamsulosin 2020-0 Yes .4mg Take 0.4 Uni vers 0.4 mg 24 8-07 mg by ity of hr capsule 00:00: mouth daily. Medical Branch tamsulosin 2020-0 Yes .4mg Take 0.4 Uni vers 0.4 mg 24 8-07 mg by ity of hr capsule 00:00: mouth daily. Medical Branch tamsulosin 2020-0 Yes .4mg Take 0.4 Uni vers 0.4 mg 24 8-07 mg by ity of hr capsule 00:00: mouth [place] 00 daily. Medical Branch tamsulosin 2020-0 Yes .4mg Take 0.4 Uni vers 0.4 mg 24 8-07 mg by ity of hr capsule 00:00: mouth [place] 00 daily. Medical Branch tamsulosin 2020-0 Yes .4mg Take 0.4 Uni vers 0.4 mg 24 8-07 mg by ity of hr capsule 00:00: mouth [place] 00 daily. Medical Branch tamsulosin 2020-0 Yes .4mg Take 0.4 Uni vers 0.4 mg 24 8-07 mg by ity of hr capsule 00:00: mouth [place] 00 daily. Medical Branch tamsulosin 2020-0 Yes .4mg Take 0.4 Uni vers 0.4 mg 24 8-07 mg by ity of hr capsule 00:00: mouth [place] 00 daily. Medical Branch tamsulosin 2020-0 Yes .4mg Take 0.4 Uni vers 0.4 mg 24 8-07 mg by ity of hr capsule 00:00: mouth [place] 00 daily. Medical Branch tamsulosin 2020-0 Yes .4mg Take 0.4 Uni vers 0.4 mg 24 8-07 mg by ity of hr capsule 00:00: mouth [place] 00 daily. Medical Branch tamsulosin 2020-0 Yes .4mg Take 0.4 Uni vers 0.4 mg 24 8-07 mg by ity of hr capsule 00:00: mouth [place] 00 daily. Medical Branch tamsulosin 2020-0 Yes .4mg Take 0.4 Uni vers 0.4 mg 24 8-07 mg by ity of hr capsule 00:00: mouth [place] 00 daily. Medical Branch tamsulosin 2020-0 Yes .4mg Take 0.4 Uni vers 0.4 mg 24 8-07 mg by ity of hr capsule 00:00: mouth [place] 00 daily. Medical Branch gabapentin 2020-0 Yes 400mg Take 400 Un scar 400 mg 7-28 mg by ity of capsule 00:00: mouth (three) Medical times Branch daily. gabapentin 2020-0 Yes 400mg Take 400 Un scar 400 mg 7-28 mg by ity of capsule 00:00: mouth (three) Medical times Branch daily. gabapentin 2020-0 Yes 400mg Take 400 Un scar 400 mg 7-28 mg by ity of capsule 00:00: mouth (three) Medical times Branch daily. gabapentin 2020-0 Yes 400mg Take 400 Un scar 400 mg 7-28 mg by ity of capsule 00:00: mouth [place] (three) Medical times Branch daily. gabapentin 2020-0 Yes 400mg Take 400 Un scar 400 mg 7-28 mg by ity of capsule 00:00: mouth 3 (three) Medical times Branch daily. gabapentin 2020-0 Yes 400mg Take 400 Un scar 400 mg 7-28 mg by ity of capsule 00:00: mouth (three) Medical times Branch daily. gabapentin 2020-0 Yes 400mg Take 400 Un scar 400 mg 7-28 mg by ity of capsule 00:00: mouth [place] (three) Medical times Branch daily. gabapentin 2020-0 Yes 400mg Take 400 Un scar 400 mg 7-28 mg by ity of capsule 00:00: mouth [place] (three) Medical times Branch daily. gabapentin 2020-0 Yes 400mg Take 400 Un scar 400 mg 7-28 mg by ity of capsule 00:00: mouth [place] () Medical times Branch daily. gabapentin 2020-0 Yes 400mg Take 400 Un scar 400 mg 7-28 mg by ity of capsule 00:00: mouth [place] (three) Medical times Branch daily. gabapentin 2020-0 Yes 400mg Take 400 Un scar 400 mg 7-28 mg by ity of capsule 00:00: mouth [place] () Medical times Branch daily. gabapentin 2020-0 Yes 400mg Take 400 Un scar 400 mg 7-28 mg by ity of capsule 00:00: mouth [place] (three) Medical times Branch daily. nateglinide 2020-0 Yes 60mg Take 60 mg Univers 60 mg 7-22 by mouth 3 ity of tablet 00:00: (three) 00 times Medical daily. Branch nateglinide 2020-0 Yes 60mg Take 60 mg Univers 60 mg 7-22 by mouth 3 ity of tablet 00:00: (three) 00 times Medical daily. Branch nateglinide 2020-0 Yes 60mg Take 60 mg Univers 60 mg 7-22 by mouth 3 ity of tablet 00:00: (three) [place] 00 times Medical daily. Branch nateglinide 2020-0 Yes 60mg Take 60 mg Univers 60 mg 7-22 by mouth 3 ity of tablet 00:00: (three) [place] 00 times Medical daily. Branch nateglinide 2020-0 Yes 60mg Take 60 mg Univers 60 mg 7-22 by mouth 3 ity of tablet 00:00: (three) [place] 00 times Medical daily. Branch nateglinide 2020-0 Yes 60mg Take 60 mg Univers 60 mg 7-22 by mouth 3 ity of tablet 00:00: (three) [place] 00 times Medical daily. Branch nateglinide 2020-0 Yes 60mg Take 60 mg Univers 60 mg 7-22 by mouth 3 ity of tablet 00:00: (three) [place] 00 times Medical daily. Branch nateglinide 2020-0 Yes 60mg Take 60 mg Univers 60 mg 7-22 by mouth 3 ity of tablet 00:00: (three) [place] 00 times Medical daily. Branch nateglinide 2020-0 Yes 60mg Take 60 mg Univers 60 mg 7-22 by mouth 3 ity of tablet 00:00: (three) [place] 00 times Medical daily. Branch nateglinide 2020-0 Yes 60mg Take 60 mg Univers 60 mg 7-22 by mouth 3 ity of tablet 00:00: (three) [place] 00 times Medical daily. Branch nateglinide 2020-0 Yes 60mg Take 60 mg Univers 60 mg 7-22 by mouth 3 ity of tablet 00:00: (three) [place] 00 times Medical daily. Branch nateglinide 2020-0 Yes 60mg Take 60 mg Univers 60 mg 7-22 by mouth 3 ity of tablet 00:00: (three) [place] 00 times Medical daily. Branch propranoloL 2020-0 Yes 10mg Take 10 mg Univers 10 mg 7-16 by mouth ity of tablet 00:00: daily. Medical Branch propranoloL 2020-0 Yes 10mg Take 10 mg Univers 10 mg 7-16 by mouth ity of tablet 00:00: daily. Medical Branch propranoloL 2020-0 Yes 10mg Take 10 mg Univers 10 mg 7-16 by mouth ity of tablet 00:00: daily. Medical Branch propranoloL 2020-0 Yes 10mg Take 10 mg Univers 10 mg 7-16 by mouth ity of tablet 00:00: daily. Medical Branch propranoloL 2020-0 Yes 10mg Take 10 mg Univers 10 mg 7-16 by mouth ity of tablet 00:00: daily. Medical Branch propranoloL 2020-0 Yes 10mg Take 10 mg Univers 10 mg 7-16 by mouth ity of tablet 00:00: daily. [address] propranoloL 2020-0 Yes 10mg Take 10 mg Univers 10 mg 7-16 by mouth ity of tablet 00:00: daily. [address] propranoloL 2020-0 Yes 10mg Take 10 mg Univers 10 mg 7-16 by mouth ity of tablet 00:00: daily. [address] propranoloL 2020-0 Yes 10mg Take 10 mg Univers 10 mg 7-16 by mouth ity of tablet 00:00: daily. [address] propranoloL 2020-0 Yes 10mg Take 10 mg Univers 10 mg 7-16 by mouth ity of tablet 00:00: daily. [address] propranoloL 2020-0 Yes 10mg Take 10 mg Univers 10 mg 7-16 by mouth ity of tablet 00:00: daily. [address] propranoloL 2020-0 Yes 10mg Take 10 mg Univers 10 mg 7-16 by mouth ity of tablet 00:00: daily. [address] gabapentin gabapentin No 1capsul TID gabapentin [place] 300 mg 300 mg e(s) 300 mg Family capsule capsule capsule Practi c Take 1 Take 1 Take 1 e capsule 3 capsule 3 capsule 3 times a day times a day times a by oral by oral day by route. route. oral route. lovastatin lovastatin No 1 Q1D lovastatin [place] 20 mg 20 mg 20 mg Family tablet Take tablet Take tablet Practic 1 tablet 1 tablet Take 1 e every day every day tablet by oral by oral every day route. route. by oral route. metformin metformin No 1 BID metformin [place] 1,000 mg 1,000 mg 1,000 mg Fam [...] s route. s route. subcutaneo us route. Ubrelvy 50 Ubrelvy 50 No 1mg Q1D Ubrelvy 50 [place] mg tablet mg tablet mg tablet Family Take 1 mg Take 1 mg Take 1 mg Practic every day every day every day e by oral by oral by oral route. route. route. Zoloft 100 Zoloft 100 No 1 Q1D Zoloft 100 [place] mg tablet mg tablet mg tablet Family Take 1 Take 1 Take 1 Practic tablet tablet tablet e every day every day every day by oral by oral by oral route. route. route. Vital Signs Vital Name Observation Time Observation Value Comments Source Systolic blood 2020-01-04 14:25:00 121 mm[Hg] [facility]iver [facility] Diastolic blood 2020-01-04 14:25:00 59 mm[Hg] Unive rs[facility] of [facility] Heart rate 2020-01-04 14:25:00 51 /min [facility] Body temperature 2020-01-04 14:25:00 36.22 Pepper [facility] Respiratory rate 2020-01-04 14:25:00 12 /min [facility] Oxygen saturation in 2020-01-04 14:25:00 96 /min University of Arterial blood by [facility] Pulse oximetry Branch Body height 2019-12-30 15:14:00 177.8 cm [facility] Body weight 2019-12-30 15:14:00 69.9 kg [facility] BMI 2019-12-30 15:14:00 22.11 kg/m2 [facility] Systolic blood 2019-12-21 13:47:00 128 mm[Hg] Univer [facility] Diastolic blood 2019-12-21 13:47:00 65 mm[Hg] Unive rs[facility] of [facility] Heart rate 2019-12-21 13:47:00 49 /min [facility] Oxygen saturation in 2019-12-21 13:47:00 93 /min University of Arterial blood by [facility] Pulse oximetry Branch Respiratory rate 2019-12-21 13:39:00 13 /min Univ ersity [facility] Body temperature 2019-12-21 13:29:00 36.28 Pepper [facility] Body height 2019-12-15 14:45:00 177.8 cm Universi ty [facility] Medical [place] Body weight 2019-12-15 14:45:00 69.9 kg Universi ty [facility] [place] [facility] BMI 2019-12-15 14:45:00 22.11 kg/m2 Universi ty [facility] Medical Branch Systolic blood 2019-11-30 13:45:00 105 mm[Hg] Univer sity of pressure [facility] Diastolic blood 2019-11-30 13:45:00 50 mm[Hg] Unive rsity of pressure [facility] Heart rate 2019-11-30 13:45:00 48 /min Universi ty [facility] Medical Branch Body temperature 2019-11-30 13:45:00 36.56 Pepper [facility] Respiratory rate 2019-11-30 13:45:00 14 /min [facility] Oxygen saturation in 2019-11-30 13:45:00 99 /min [facility] Arterial blood by [facility] Pulse oximetry Branch Body height 2019-11-27 17:47:00 177.8 cm Universi ty [facility] Medical Branch Body weight 2019-11-27 17:47:00 69.9 kg Universi ty [facility] Medical Branch BMI 2019-11-27 17:47:00 22.11 kg/m2 Universi [facility] Medical Branch Procedures Procedure Date / Time Performed Performing Clinician [facility] e [place] TIME OR 2020-01-04 14:21:26 Hemant Shrestha [facility] (NON-REPORTABLE) Medical Branch POCT GLUCOSE(AGE 2020-01-04 13:29:00 Maurilio Raphael [facility] >30DAYS) Medical Branch CONSENT/REFUSAL FOR 2020-01-01 15:33:47 Doctor Unassigned, No [facility] DIAGNOSIS AND Name Medical Branch TREATMENT ASSIGNMENT OF BENEFITS 2020-01-01 15:33:30 Doctor Unassigned, No [facility] DSU PRE-OP 2019-12-29 06:01:00 Doctor Unassigned, No Univer [facility] POCT GLUCOSE(AGE 2019-12-21 12:13:00 Maurilio Raphael [facility] >30DAYS) Medical Branch ASSIGNMENT OF BENEFITS 2019-12-16 13:56:18 Doctor Unassigned, No [facility] Branch CONSENT/REFUSAL FOR 2019-12-16 13:55:53 Doctor Unassigned, No Un [facility] DIAGNOSIS AND [facility] TREATMENT [place] TIME OR 2019-11-30 13:23:32 Hemant Shrestha [facility] (NON-REPORTABLE) [facility] POCT GLUCOSE(AGE 2019-11-30 12:28:00 Maurilio Raphael [facility] >30DAYS) Medical Branch DAY SURGERY - ADC 2019-11-30 05:01:00 Doctor Unassigned, No [facility] (ID NOW RAPID 2019-11-27 19:31:00 Hemant Shrestha Un [facility] TESTING) [facility] Branch ASSIGNMENT OF BENEFITS 2019-11-27 19:12:25 Doctor Unassigned, No [facility] DSU PRE-OP 2019-11-26 05:01:00 Doctor Unassigned, No Univer [facility] ASSIGNMENT OF BENEFITS 2019-11-24 19:07:36 Doctor Unassigned, No [facility] Encounters Start End Encounter Admission Attending Care Care Encounter Source Date/Time Date/Time Type Type Clinicians Facility Department ID 2020-12-24 Outpatient R HENRIETTA [facility] [id number] Univers 02:50:57 [facility] 2020-12-24 Outpatient R HENRIETTA [facility] [id number] Univers 00:04:51 [facility] 2020-12-23 Outpatient R HENRIETTA [facility] [id number] Univers 22:43:32 [facility] 2020-12-23 Outpatient R HENRIETTA [facility] [id number] Univers 20:42:29 [facility] 2020-01-13 2020-01-13 Ruben Martinez [facility] [id number] Univers 00:00:00 00:00:00 (Out) Handy Riggs [id number] ity simeon Marquez [id number] [facility] [phone] [place] [address] Branch 2020-01-04 2020-01-04 Hospital Henrietta ILTAYLOR [id number] Univers 07:15:00 08:40:00 Encounter Hemant [place] [id number] [place]y [id number] [place] [id number] [address] 2020-01-01 2020-01-01 Laboratory Only, Adc Test [place] 1.2.840. 114 [id number] Univers 09:34:24 09:49:24 Only Hemant Shrest[place]on 350.1.13.1 0 [place] 4[place]2.7.2.686 [place] [id number] [address] 2020-01-01 2020-01-01 Outpatient R [facility] [id number] Univers 08:30:00 08:30:00 HEMANT ity of [facility] 2019-12-21 2019-12-21 [facility] [id number] Univers 06:56:00 08:59:00 Encounter Hemant Riggs [id number] it[place] [id number] [place] [id number] [address] 2019-12-18 2019-12-18 Letter PcpCALLIE [id number] Univers 00:00:00 00:00:00 (Out) Patient TAHIR [id number] it y of Does [facility] [place].686 [place] [id number] [address] 2019-12-17 2019-12-17 Outpatient LauraPaul P VFP [phone] [facility] 01:31:00 01:31:00 _A_AH [id number] Family Practic e 2019-12-16 2019-12-16 Laboratory Only, Adc Test [facility] 1.2.840. 114 [id number] Univers 08:58:42 09:13:42 Only Hemant Shresthaton 350.1.13.1 0 ity [place] 4[place]2.7.2.686 [place] [id number] [address] 2019-12-16 2019-12-16 Outpatient R [facility] [id number] Univers 09:00:00 09:00:00 ity of [facility] 2019-12-16 2019-12-16 Telephone Only, [facility] 1.2.840.114 [id number] Univers 00:00:00 00:00:00 Test [place] [id number] i ty of [place] 4[place]2.7.2.686 [place] [id number] [facility] 353 Branch 2019-12-07 2019-12-07 Letter CALLIE Martinez 1.2.840.114 [id number] Univers 00:00:00 00:00:00 (Out) Handy Coffey TAHIR 350.1.13.10 i ty of [facility] 4.2.7.2.686 [place] as [id number] [facility] 019 [place] 2019-12-07 2019-12-07 Natasha [facility] [place] - [id number] V illage 00:00:00 00:00:00 [facility] huber mackenzie, FOOD CONSULTANT: Medical - Practi c [address] [email or web address], [address] [place] [address], [place] [address] , Ph. 2019-11-30 2019-11-30 [facility] 1.2.840.114 [id number] Univers 07:14:00 09:09:00 Encounter Hemant Newman One[place] [id number] ity [place] 4[place]2.686 [place] [id number] [facility] 071 Branch 2019-11-30 2019-11-30 Orders Doctor CALLIE 1.2.840.114 [id number] Univers 00:00:00 00:00:00 Only Unassigned, TAHIR 350.1.13.10 ity of [place] [facility] 4.2.7.2.686 [place] as [id number] [facility] 009 Branch 2019-11-27 2019-11-27 Laboratory Only, [facility] Test [facility] 1.2.840. 114 [id number] Univers 14:22:37 14:37:37 Only [place], Hemant Riggs 350.1.13.1 0 ity of [place] 4.2.7.2.686 [place] [id number] [address] 2019-11-27 2019-11-27 Outpatient R HENRIETTA [facility] [id number] Univers 14:30:00 14:30:00 [facility] ity [facility] 2019-11-27 2019-11-27 Orders Doctor CALLIE 1.2.840.114 [id number] Univers 00:00:00 00:00:00 Only Unassigned, TAHIR 350.1.13.10 ity of [place] [facility] 4.2.7.2.686 [place] as [id number] [address] 2019-11-24 2019-11-24 [facility] [id number] Univers 15:15:00 15:15:00 [facility] ity [facility] 2019-11-24 2019-11-24 [place]away Driver Betsy, Adc Lab Main [facility] 1.2.8 40.114 [id number] Univers 14:08:39 14:23:39 Visit Hemant Shrestha [facility] 350.1.13.1 0 [facility] [id number] [facility] [id number] [address] 2019-11-24 2019-11-24 Orders Doctor CALLIE 1.2.840.114 [id number] Univers 00:00:00 00:00:00 Only Unassigned, TAHIR 350.1.13.10 ity of [place] [facility] 4.2.7.2.686 [place] as [id number] [address] 2019-07-27 2019-07-27 Outpatient Laura-[facility]bert[facility] 793 [facility]202 [facility] 06:23:00 06:23:00 _A_AH 34547 Family Practic e 2019-07-06 2019-07-06 [facility] [address] 02:33:00 02:33:00 _A_AH 74375 Family Practic e 2019-05-25 2019-05-25 Natasha [facility] [place] - [id number] V illage 00:00:00 00:00:00 [facility] Fam huber o, FOOD CONSULTANT: Medical - Practi c [address] [email or web address] [facility], [address] [place] [address], [place] [address] , Ph. 2019-04-15 2019-04-15 Outpatient Baldomero VFP VF [phone] [facility] 07:15:00 07:15:00 _A_AH 17076 Family Practic e Results Test Description Test Time Test Comments Results Result Sourc e Comments FL TIME OR 2020-01-04 These images do Universit y of (NON-REPORTABLE) 14:25:21 not require a Rust diagnostic report. POCT Glucose 2020-01-04 13:29:00 Test Item Value Reference Range Interpretation Comme nts POCT Glu (age>30days) (test code = 3342) 171 mg/dL 70-110 A Lab Interpretation (test code = 62220-1) Abnormal [facility] [id number] 12:13:00 Test Item Value Reference Range Interpretation Comments POCT Glu (age>30days) (test code = 114 mg/dL 70-110 A 3342) Lab Interpretation (test code = Abnormal 99240-9) [facility] TIME OR (NON-REPORTABLE)2019-11-30 13:24:35 These images do not require a Radiology diagnostic report.[facility] [id number] 12:28:00 Test Item Value Reference Range Interpretation Comments POCT Glu (age>30days) (test code = 97 mg/dL 70-110 3342) [facility]ID NOW RAPID TESTING)2019-11-27 19:58:00 Test Item Value Reference Range Interpretation Comments SARS-CoV-2 Rapid ID NOW Not Detected Not Detected (test code = 49816-3) VANDANA (test code = VANDANA) ID NOW COVID-19 Assay is an isothermal nucleic acid amplification test intended for the qualitative detection of nucleic acid from SARS-CoV-2 viral RNA in nasopharyngeal (FOOD CONSULTANT) specimens. It is used under Emergency Use Authorization (EUA) by FDA. The limit of detection (LOD) of the assay is 125 Genome Equivalents/mL. A positive result is indicative of the presence of SARS-CoV-2 RNA. ?Clinical correlation with patient history and other diagnostic information is necessary to determine patient infection status. A negative (Not Detected) result does not preclude SARS-CoV-2 infection. In patients with clinical symptoms and other tests that are consistent with SARS-CoV-2 infection, negative results should be treated as presumptive negative and a new specimen should be tested with alternative PCR molecular test. Invalid: Please collect a new specimen for repeat patient testing if clinically indicated. Lab Interpretation Normal (test code = 06077-2) [facility]
[2022-12-10] MEDS ORDERED: HYDROCODONE/APAP 10/325 TAB ONE (01:53)
--- NOTE | 2022-12-10 02:27 | ER ---
Nurse's Notes [facility] Name: Mati Aragon Age: 77 yrs Sex: Male : 1945 Arrival Date: 12/10/2022 Time: 00:19 Bed 5 Private MD: Jonathan Thorne B Diagnosis: Fall on same level, unspecified;Abrasion of left upper arm;Unspecified injury of head, initial encounter;Multiple fractures of ribs, right side Presentation: 12/10 00:30 Chief complaint: Patient states: MECHANICAL FALL AT 1400, +LOC. Coronavirus screen: At bp this time, the client does not indicate any symptoms associated with coronavirus-19. Ebola Screen: No symptoms or risks identified at this time. Initial Sepsis Screen: Does the patient meet any 2 criteria? No. Patient's initial sepsis screen is negative. Does the patient have a suspected source of infection? No. Patient's initial sepsis screen is negative. Risk Assessment: Do you want to hurt yourself or someone else? Patient reports no desire to harm self or others. Onset of symptoms was December 09, 2022 at 14:00. 00:30 Method Of Arrival: Wheelchair bp 00:30 Acuity: ROSIE 3 bp Triage Assessment: 00:31 General: Appears in no apparent distress. Behavior is appropriate for age. Pain: bp Complains of pain in head, back of neck and posterior chest. 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 - Social history:: Smoking status: Patient denies any tobacco usage or history of. Screenin:00 [facility] ED Fall Risk Assessment (Adult) History of falling in the last 3 months, jb4 including since admission No falls in past 3 months (0 pts) Confusion or Disorientation No (0 pts) Score/Fall Risk Level 0 - 2 = Low Risk Oriented to surroundings, Maintained a safe environment. Abuse screen: Denies threats or abuse. Nutritional screening: No deficits noted. Tuberculosis screening: No symptoms or risk factors identified. Assessment: 01:30 Reassessment: Patient appears in no apparent distress at this time. Patient and/or jb4 family updated on plan of care and expected duration. Pain level reassessed. Patient is alert, oriented x 3, equal unlabored respirations, skin warm/dry/pink. 02:30 Reassessment: Patient appears in no apparent distress at this time. Patient and/or jb4 family updated on plan of care and expected duration. Pain level reassessed. Patient is alert, oriented x 3, equal unlabored respirations, skin warm/dry/pink. Vital Signs: 00:30 BP 153 / 59; Pulse 84; Resp 16; Temp 98.1; Pulse Ox 100% ; bp 01:28 Weight 96.16 kg (R); jb4 02:00 BP 149 / 60; Pulse 70; Resp 16; Pulse Ox 98% on R/A; jb4 ED Course: 00:23 Patient arrived in ED. mr 00:23 Jonathan Thorne MD is Private Physician. mr 00:23 Ken Li MD is Attending Physician. kdr 00:31 Triage completed. bp 00:31 Arm band placed on. bp 01:41 CT Traumagram (Head C Spine CAP wo con) In Process Unspecified. EDMS 01:43 Michael Pozo, [place] is Primary Nurse. jb4 02:00 Patient has correct armband on for positive identification. Bed in low position. Call jb4 light in reach. Side rails up X 1. Client placed on continuous cardiac and pulse oximetry monitoring. NIBP monitoring applied. 02:00 No provider procedures requiring assistance completed. Patient did not have IV access jb4 during this emergency room visit. 02:22 Jonathan Thorne MD is Referral Physician. kdr Administered Medications: 01:43 Drug: [place] PO 10 mg-325 mg 1 tabs PO once Route: PO; jb4 03:06 Drug: Cephalexin PO 500 mg PO once Route: PO; jb4 03:07 Drug: Tetanus-Diphtheria Toxoid IM Adult 0.5 ml IM once; Provide Vaccine Information jb4 Statement (VIS). 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 kdr 03:11 Discharged to home via wheelchair, with family, jb4 03:11 Condition: stable 03:11 Discharge instructions given to patient, family, Instructed on discharge instructions, follow up and referral plans. no drinking with medication, no driving heavy equipment, medication usage, Incentive spirometry Demonstrated understanding of instructions, follow-up care, medications, Prescriptions given X 2, 03:11 Patient left the ED. jb4 Signatures: Dispatcher [employer] EDMS Ken Li MD MD kdr Rivera, Mary, [facility] Michael Rojo, RN RN jbMaurilio Calixto, [place] RN bp
--- NOTE | 2022-12-10 02:27 | EDPHYS ---
Physician Documentation [facility] Name: Mati Aragon Age: 77 yrs Sex: Male : 1945 Arrival Date: 12/10/2022 Time: 00:19 Bed 5 Private MD: Jonathan Thorne B ED Physician Ken Li HPI: 12/10 01:37 This 77 yrs old Male presents to ER via Wheelchair with complaints of Fall Injury, Rib kdr pain, neck pain. 01:37 Details of fall: The patient fell from an upright position, while standing, while kdr walking. Onset: The symptoms/episode began/occurred suddenly, today, 12 hour(s) ago. Associated injuries: The patient sustained injury to the head, contusion, neck injury, upper back injury, injury to the chest, specifically the right lateral anterior chest, left lateral anterior chest, right lateral posterior chest and left lateral posterior chest. Severity of symptoms: At their worst the symptoms were mild, moderate, just prior to arrival, in the emergency department the symptoms are unchanged. The patient has not experienced similar symptoms in the past. The patient has not recently seen a physician. Patient reports that he tripped over a cord and fell hitting his head. He reports a transient loss of consciousness. The length of unresponsiveness was estimated 5 minutes or so. He is unclear exactly how that number was determined. Patient now reports cervical pain, worse than usual, bilateral upper chest pain laterally. He also reports pain in the low thoracic area of his spine. Patient otherwise has no other obvious trauma. He is moving all extremities. He did not feel that further x-rays were needed of his extremities. Historical: - Allergies: 00:31 No Known Allergies; bp - PMHx: 00:31 Diabetes - IDDM; Hyperlipidemia; Hypothyroidism; bp - Immunization history:: Adult Immunizations up to date. - Social history:: Smoking status: Patient denies any tobacco usage or history of. ROS: 01:37 Constitutional: Negative for fever, chills, and weight loss, Eyes: Negative for injury, kdr pain, redness, and discharge, Neck: Negative for injury, pain, and swelling, Cardiovascular: Negative for chest pain, palpitations, and edema, 01:37 Respiratory: Negative for shortness of breath, cough, wheezing, and pleuritic chest pain, Abdomen/GI: Negative for abdominal pain, nausea, vomiting, diarrhea, and constipation, Back: Negative for injury and pain, : Negative for injury, bleeding, discharge, and swelling, MS/Extremity: Negative for injury and deformity, Skin: Negative for injury, rash, and discoloration, Neuro: Negative for headache, weakness, numbness, tingling, and seizure activity. Psych: Negative for depression, anxiety, suicide ideation, homicidal ideation, and hallucinations, Allergy/Immunology: Negative for hives, rash, and allergies, Endocrine: Negative for neck swelling, polydipsia, polyuria, polyphagia, and marked weight changes, Hematologic/Lymphatic: Negative for swollen nodes, abnormal bleeding, and unusual bruising, 01:37 Cardiovascular: Positive for chest pain, of the left subscapular area, right subscapular area, right lateral anterior chest, left lateral anterior chest, right lateral posterior chest and left lateral posterior chest, Exam: 01:37 Constitutional: This is a well developed, well nourished patient who is awake, alert, kdr and in no acute distress. Head/Face: Normocephalic, atraumatic. Eyes: Pupils equal round and reactive to light, extra-ocular motions intact. Lids and lashes normal. Conjunctiva and sclera are non-icteric and not injected. Cornea within normal limits. Periorbital areas with no swelling, redness, or edema. Cardiovascular: Regular rate and rhythm with a normal S1 and S2. No gallops, murmurs, or rubs. Normal PMI, no JVD. No pulse deficits. Respiratory: Lungs have equal breath sounds bilaterally, clear to auscultation and percussion. No rales, rhonchi or wheezes noted. No increased work of breathing, no retractions or nasal flaring. Abdomen/GI: Soft, non-tender, with normal bowel sounds. No distension or tympany. No guarding or rebound. No evidence of tenderness throughout. Back: No spinal tenderness. No costovertebral tenderness. Full range of motion. Skin: Warm, dry with normal turgor. Normal color with no rashes, no lesions, and no evidence of cellulitis. MS/ Extremity: Pulses equal, no cyanosis. Neurovascular intact. Full, normal range of motion. Neuro: Awake and alert, GCS 15, oriented to person, place, time, and situation. Cranial nerves II-XII grossly intact. Motor strength 5/5 in all extremities. Sensory grossly intact. Cerebellar exam normal. Normal gait. Psych: Awake, alert, with orientation to person, place and time. Behavior, mood, and affect are within normal limits. 01:37 Neck: External neck: Pain to cervical spine, minor, C-spine: ROM/movement: pain, that is mild, with any movement, limited range of motion, is not appreciated, Meningeal signs: are not present, nuchal rigidity, is not appreciated, 01:37 Back: pain, that is mild, that is moderate, of the lumbar area, ROM is painful, normal spinal alignment noted, CVA tenderness, is absent, vertebral tenderness, is appreciated at T10, T11, T12 and L1, Vital Signs: 00:30 BP 153 / 59; Pulse 84; Resp 16; Temp 98.1; Pulse Ox 100% ; bp 01:28 Weight 96.16 kg (R); jb4 02:00 BP 149 / 60; Pulse 70; Resp 16; Pulse Ox 98% on R/A; jb4 MDM: 01:37 Data reviewed: vital signs, nurses notes, lab test result(s), radiologic studies. kdr 02:26 Patient medically screened. kdr 12/10 00:54 Order name: CT Traumagram (Head C Spine CAP wo con) kdr 12/10 02:22 Order name: INCENTIVE SPIROMETRY kdr 12/10 02:21 Order name: Misc. Order: Clean and dress left elbow wounds; Complete Time: 03:07 kdr Administered Medications: 01:43 Drug: [place] PO 10 mg-325 mg 1 tabs PO once Route: PO; jb4 03:06 Drug: Cephalexin PO 500 mg PO once Route: PO; jb4 03:07 Drug: Tetanus-Diphtheria Toxoid IM Adult 0.5 ml IM once; Provide Vaccine Information jb4 Statement (VIS). {Head Porter: [employer]; Exp: SatJul 18 2024; Lot #: [id number]; Series: 1 of ; Patient Consent: Obtained; Date/Time: ; Source Name: Mati Oz Aragon; Source Relationship: Self; Address Information: [address] [place] [address], [facility] [id number]; ; Education: Provided; VIS Presented Date: ; VIS Publication: Tetanus/Diphtheria/Pertussis (Tdap/Td) VIS 03/20/2011 (historic)} Route: IM; Site: left deltoid; Disposition Summary: 12/10/22 02:26 Discharge Ordered Notes: Location: Home kdr Problem: new kdr Symptoms: have improved kdr Condition: Stable kdr Diagnosis - Fall on same level, unspecified kdr - Abrasion of left upper arm kdr - Unspecified injury of head, initial encounter kdr - Multiple fractures of ribs, right side kdr Followup: kdr - With: Jonathan Thorne MD - When: 2 - 3 days - Reason: If symptoms return, Further diagnostic work-up, Recheck today's complaints, Continuance of care, Re-evaluation by your physician Discharge Instructions: - Discharge Summary Sheet kdr - How to Use an Incentive Spirometer kdr - Abrasion, [id number] kdr - Head Injury, Adult, [id number] kdr - Rib Fracture, [id number] kdr Forms: - Medication Reconciliation Form kdr - Thank You Letter kdr - Prescription Opioid Use kdr - Patient Portal Instructions kdr - Leadership Thank You Letter kdr Prescriptions: - acetaminophen-codeine 300-30 mg Oral tablet - take 1 tablet ORAL route every 4-6 hours As needed as needed for pain; 20 kdr tablet; Refills: 0, Product Selection Permitted - Cephalexin 500 mg Oral capsule - take 1 capsule ORAL route every 8 hours for 5 days; 15 capsule; Refills: 0, kdr Product Selection Permitted Signatures: Dispatcher [employer] Ken Méndez MD MD kdr Michael Pozo, [place] RN jb4 Maurilio Adorno RN RN bp
[2022-12-10] MEDS ORDERED: CEPHALEXIN 250 MG CAP ONE (02:56)
[2022-12-10] MEDS ORDERED: TDAP (DIPHTH,PERTUSS(ACELL),TET VAC) 0.5 ML VIAL IMVAC ONE (02:56)
[2022-12-10 03:15] VITALS: TEMP 98.1
[2022-12-10 03:17] VITALS: BP 149/60; O2SAT 98
--- NOTE | 2022-12-10 18:04 | RAD REPORT ---
EXAM DESCRIPTION: CT - Head C Spine Cap Wo Con - 12/10/2022 6:12 am CLINICAL HISTORY: 77 years, Male, fall COMPARISON: 10/08/2022, 07/16/2019. FINDINGS: Multiple transaxial tomograms of the brain were obtained from the base of the skull to the vertex without contrast. 2-D multiplanar reformats and the coronal and sagittal plane were performed and reviewed. Multiple axial CT images through the cervical spine were obtained at 2 mm slice thickness at 2 mm int erval reconstruction. In addition 2-D multiplanar reformats and the sagittal coronal plane were perfo rmed and reviewed. Multiple transaxial tomograms of the chest, abdomen and pelvis were performed from the lung bases to the symphysis pubis utilizing 5 mm slice thickness at 5 mm interval reconstruction, without administr ation of IV and oral contrast. Multiplanar reformats in the sagittal and coronal plane were generated and reviewed. This exam was performed according to our departmental dose-optimization protocol, which includes auto mated exposure control, adjustment of the mA and/or kV according to patient size and/or use of iterat clau reconstruction technique. CT head: Brain parenchyma demonstrate mild prominence of the sulci and gyri are corresponding to mild cerebral and cerebellar atrophy. There is minimal periventricular white matter changes of microvascu lar ischemia. There is no midline shift and/or mass effect. There is no evidence for acute intracrani al hemorrhage. Lateral ventricles and cisterns displace normal appearance. No intra or extra axia l fluid collections were seen. The calvarium is intact with no evidence for fracture. The visualized portions of the paranasal sinuses and orbits demonstrate to be clear. CT C-spine: There is anterior plate fixation device with intervertebral disc body fusion at C6/C7. In complete closure posterior arch of C1, anatomical variants. Otherwise the alignment of the vertebral bodies are normal. There is no evidence of fracture or subluxation. There is degenerative disc dise ase with decreased intervertebral disc height, anterior spondylosis and posterior osteophyte complex at C4/C5 C5/C6 and C7/T1. The spinal canal demonstrate no evidence for significant stenosis. Neural f oramina demonstrate to be unremarkable. There is minimal uncovertebral degenerative changes C6-T1. Th ere is no prevertebral soft tissue swelling. Sagittal coronal reformatted images demonstrate no sub luxation or bony abnormalities. Chest: The lungs parenchyma demonstrate dependent atelectatic changes lung bases. No evidence for pne umothorax. No masses nodules are identified. The trachea mainstem bronchus demonstrate to be normal . There is no significant pleural and/or pericardial effusions. The heart is normal in size. There are coronary artery calcifications. The thoracic aorta demonstrate minimal intimal aortic arch calcif ication. There is no significant mediastinal and/or hilar lymphadenopathy. The axillary regions demon strate to be clear. The bone windows demonstrated presence of right lateral fifth and sixth rib suggesting small nondispl aced fractures. Also there is disruption of the right sixth and the seventh of the costochondral junc tion corresponding to small nondisplaced fractures. The rest of the bony structures of the chest demo nstrate to be within normal limits. Abdomen and pelvis: Grossly the unopacified liver, gallbladder, pancreas, spleen and adrenal glands d emonstrate to be unremarkable, no focal lesions are noted. The kidneys demonstrate to be within normal limits. No evidence for nephrolithiasis/or hydronephrosis . Grossly the unopacified stomach, small bowel and large bowel demonstrate to be within normal limits. There is no evidence for bowel dilatation and/or free air. The appendix is normal. The urinary bladder demonstrate to be unremarkable. The prostate gland is normal. The aorta demon strate minimal atherosclerotic disease extending into the aortic bifurcation/iliac arteries. There is no retroperitoneal lymphadenopathy. There is no evidence for ascites/or significant retroperitonea l hemorrhage. The bone windows demonstrate no definitive significant compression deformity. No evidence for signifi cant acute bony injuries. Minimal degenerative changes at L4/L5 disc level. IMPRESSION: No acute intracranial hemorrhage. Mild brain atrophy with minimal periventricular white matter changes of microvascular ischemia. No evidence for acute fracture or subluxation of the cervical spine. Status post anterior plate fixation device with intervertebral disc body fusion at C6/C7. Degenerative disc disease at C4/C5, C5/C6 and C7/T1. Minimal dependent atelectatic changes lung bases. Coronary artery calcifications. Right lateral fifth and sixth rib tiny nondisplaced fracture and small nondisplaced fractures right s ixth and the seventh of the costochondral junction. No evidence for significant acute bony injuries within the abdomen and pelvis. Electronically signed by: Quinten Wakefield MD 12/10/2022 1:59 AM CDT Due to temporary technical issues with the PACS/Fluency reporting system, reports are being signed by the in house radiologists without review as a courtesy to insure prompt reporting. The interpreting radiologist is fully responsible for the content of the report.
== END 2022-12-10 03:11 | disposition home or self-care (01) ==
LOC: ER 00:19
DX: S22.41XA Multiple fractures of ribs, right side, initial encounter for closed fracture (principal); S40.812A Abrasion of left upper arm, initial encounter; S00.83XA Contusion of other part of head, initial encounter; W18.30XA Fall on same level, unspecified, initial encounter; Z23 Encounter for immunization; E11.9 Type 2 diabetes mellitus without complications
CPT/HCPCS: 70450; 71250; 72125; 90471; 99284

== ENCOUNTER 2023-01-16 09:25 | Emergency (ER) | payer OTHER ==
--- OUTSIDE RECORDS SUMMARY | 2023-01-16 09:30 | XMS REPORT | Continuity of Care Document ---
:1945 [facility] t Address [address] [facility] [address] [place] [address] Care Team Providers Name Role Phone Nitish Aldridge Attending Clinician Unavailable HEMANT SHRESTHA Attending Clinician Unavailable Handy Martinez MD Attending Clinician Hemant Shrestha MD Attending Clinician Only, Adc Test Attending Clinician Unavailable Pcp, Patient Does Not Have A Attending Clinician [phone] [email or web address] Attending Clinician Unavailable Doctor Unassigned, [place] [facility] [place] Attending Clinician Unavailable Pob, Adc Lab Main Attending Clinician Unavailable HEMANT SHRESTHA Admitting Clinician Unavailable Hemant Shrestha MD Admitting Clinician [email or web address]_[email or web address] Admitting Clinician Unavailable Payers Payer Name Policy Type Policy Number Effective Date Expiration Date S [place] [employer] [facility] [id number] 2019 00:00:00 [employer] [place] - [id number] 2019 [place] 00:00:00 (MEDICARE REPLACEMENT/ADVANT AGE - [...] Date Date Clinician NO KNOWN Drug Active Formerly [facility] ALLERGIE Class ity of [facility] Social History Social Habit Start Date Stop Date Quantity Comments Source Sex Assigned At [facility] Exposure to Not sure [facility] SARS-CoV-2 [facility] (event) Tobacco use and 2020-01-05 2020-01-05 Current user [facility] exposure 00:00:00 00:00:00 [facility] Smoking Status Start Date Stop Date Source Unknown if ever smoked General acute hospital Former smoker 2020-01-05 00:00:00 2020-01-05 00:00:00 [facility] Medications Ordered Filled Start Stop [...] 2020- No 1{tbl} 1 tablet, Univers -acetaminop 0- 10-27 Oral, ity of hen (NORCO 14:00: [...] ne 0-26 Starting ity of acetonide 13:20: [facility] (KENALOG) 00 12/21/19 Medica l injection at 0820, Branch Until Discontinu ed, Routine, Intra-op lidocaine 2019-02 Yes PRN, Univers 1% 0-26 Starting ity of (XYLOCAINE) 13:20: [facility] 10 mg/mL (1 12/21/19 Medi little %) at 0820, Branch injection Until Discontinu ed, Routine, Intra-op iohexoL 2019-02 Yes PRN, Univers (OMNIPAQUE 0-26 Starting ity o f 350 BULK-50 13:20: [facility] mL) 12/21/19 Medical injection at 0820, [place] Until Discontinu ed, Routine, Intra-op bupivacaine 2019-02 Yes PRN, Univer s (preserv 0-26 Starting ity of free) 13:19: [facility] (SENSORCAIN 12/21/19 Medi little E MPF) 0.25 at 0819, Bran ch % (2.5 Until mg/mL) Discontinu injection ed, Routine, Intra-op ceFAZolin 2019-02 Yes 1000mg 1,000 mg, U nivers (ANCEF) 0-26 IV ity of 1,000 mg in 12:31: Piggyback, [place] NaCl 0.9% 23 O.R. Medical (NS) 50 mL HOLDING Branch MINI-BAG ONCE, 1 dose, Starting Sat12/21/19 at [...] IV Medical Infusion, Branch ONCE, 1 dose, 12/21/19 at 0715, Routine, DSU Pre-op lactated [...] 4 20 dose, Medical mg Starting Branch 11/30/19 at 0834, Until Discontinu ed, Routine, Nausea and Vomiting (N/V), PACU triamcinolo 2019-02 Yes PRN, Univer s ne 0-05 Starting ity of acetonide 13:06: [facility] (KENALOG) 00 11/30/19 at Medi little injection 0806, Branch Until Discontinu ed, Routine, Intra-op lidocaine 2019-02 Yes PRN, Univers 1% 0-05 Starting ity of (XYLOCAINE) 13:06: [facility] 10 mg/mL (1 00 11/30/19 at Sc dical %) 805, Branch injection Until Discontinu ed, Routine, Intra-op bupivacaine 2019-02 Yes PRN, Univer s (preserv 0-05 Starting ity of free) 13:06: [facility] (SENSORCAIN 00 11/30/19 at Sc dical E MPF) 0.25 805, Branch % (2.5 Until mg/mL) Discontinu injection ed, Routine, Intra-op lactated 2019-02 2020- No 1000mL at 42 Unive rs ringers IV 0-05 10-05 mL/hr, ity of infusion 12:45: 12:36 1,000 mL, [place] as 1,000 mL 00 :00 IV Medical Infusion, Branch ONCE, 1 dose, 11/30/19 at 0745, Routine, DSU Pre-op traMADoL 50 [...] by mouth 2 ity of 00:00: (two) [place] 00 times Medical daily. Branch traMADoL 50 2020-0 Yes 50mg Take 50 mg Univers mg tablet 9-17 by mouth 2 ity of 00:00: (two) [place] 00 times Medical daily. Branch traMADoL 50 2020-0 Yes 50mg Take 50 mg Univers mg tablet 9-17 by mouth 2 ity of 00:00: (two) [place] 00 times Medical daily. Branch traMADoL 50 2020-0 Yes 50mg Take 50 mg Univers mg tablet 9-17 by mouth 2 ity of 00:00: (two) [place] 00 times Medical daily. Branch traMADoL 50 [...] by mouth ity of tablet 00:00: daily. [address] Branch metFORMIN 2020-0 Yes 1000mg Take 1,000 Univers 1,000 mg 9-02 mg by ity of tablet 00:00: mouth 2 [place] (two) Medical times [place] daily. levothyroxi 2020-0 Yes 50ug Take 50 Uni vers ne 50 mcg 9-02 mcg by ity of tablet 00:00: mouth [place] 00 every Medical morning. Branch lovastatin 2020-0 Yes 20mg Take 20 mg U nivers 20 mg 9-02 by mouth ity of tablet 00:00: daily. [address] Branch metFORMIN 2020-0 Yes 1000mg Take 1,000 Univers 1,000 mg 9-02 mg by ity of tablet 00:00: mouth 2 [place] (two) Medical times [place] daily. levothyroxi 2020-0 Yes 50ug Take 50 Uni vers ne 50 mcg 9-02 mcg by ity of tablet 00:00: mouth [place] every Medical morning. Branch lovastatin 2020-0 Yes 20mg Take 20 mg U nivers 20 mg 9-02 by mouth ity of tablet 00:00: daily. [address] metFORMIN 2020-0 Yes 1000mg Take 1,000 Univers 1,000 mg 9-02 mg by ity of tablet 00:00: mouth 2 [place] (two) Medical times [place] daily. levothyroxi 2020-0 Yes 50ug Take 50 Uni vers ne 50 mcg 9-02 mcg by ity of tablet 00:00: mouth [place] every Medical morning. Branch lovastatin 2020-0 Yes 20mg Take 20 mg U nivers 20 mg 9-02 by mouth ity of tablet 00:00: daily. [address] metFORMIN 2020-0 Yes 1000mg Take 1,000 Univers 1,000 mg 9-02 mg by ity of tablet 00:00: mouth 2 [place] (two) Medical times [place] daily. levothyroxi 2020-0 Yes 50ug Take 50 Uni vers ne 50 mcg 9-02 mcg by ity of tablet 00:00: mouth [place] every Medical morning. Branch lovastatin 2020-0 Yes 20mg Take 20 mg U nivers 20 mg 9-02 by mouth ity of tablet 00:00: daily. [address] metFORMIN 2020-0 Yes 1000mg Take 1,000 Univers 1,000 mg 9-02 mg by ity of tablet 00:00: mouth 2 (two) Medical times [place] daily. levothyroxi 2020-0 Yes 50ug Take 50 Uni vers ne 50 mcg 9-02 mcg by ity of tablet 00:00: mouth every Medical morning. Branch levothyroxi 2020-0 Yes 50ug Take 50 Uni vers ne 50 mcg 9-02 mcg by ity of tablet 00:00: mouth every Medical morning. Branch lovastatin 2020-0 Yes 20mg Take 20 mg U nivers 20 mg 9-02 by mouth ity of tablet 00:00: daily. [place] [facility] Branch metFORMIN 2020-0 Yes 1000mg Take 1,000 Univers 1,000 mg 9-02 mg by ity of tablet 00:00: mouth [place] ([facility]) Medical times [place] daily. lovastatin 2020-0 Yes 20mg Take 20 mg U nivers 20 mg 9-02 by mouth ity of tablet 00:00: daily. [place] [facility] Branch metFORMIN 2020-0 Yes 1000mg Take 1,000 Univers 1,000 mg 9-02 mg by ity of tablet 00:00: mouth [place] ([facility]) Medical times [place] daily. levothyroxi 2020-0 Yes 50ug Take 50 Uni vers ne 50 mcg 9-02 mcg by ity of tablet 00:00: mouth every Medical morning. Branch lovastatin 2020-0 Yes 20mg Take 20 mg U nivers 20 mg 9-02 by mouth ity of tablet 00:00: daily. [place] [facility] metFORMIN 2020-0 Yes 1000mg Take 1,000 Univers 1,000 mg 9-02 mg by ity of tablet 00:00: mouth [place] (two) Medical times [place] daily. levothyroxi 2020-0 Yes 50ug Take 50 Uni vers ne 50 mcg 9-02 mcg by ity of tablet 00:00: mouth every Medical morning. Branch lovastatin 2020-0 Yes 20mg Take 20 mg U nivers 20 mg 9-02 by mouth ity of tablet 00:00: daily. [place] [facility] metFORMIN 2020-0 Yes 1000mg Take 1,000 Univers 1,000 mg 9-02 mg by ity of tablet 00:00: mouth [place] (two) Medical times Branch daily. levothyroxi 2020-0 [...] by mouth ity of tablet 00:00: daily. [place] Medical Branch metFORMIN 2020-0 Yes 1000mg Take 1,000 Univers 1,000 mg 9-02 mg by ity of tablet 00:00: mouth 2 (two) Medical times [place] daily. levothyroxi 2020-0 Yes 50ug Take 50 Uni vers ne 50 mcg 9-02 mcg by ity of tablet 00:00: mouth every Medical morning. Branch lovastatin 2020-0 Yes 20mg Take 20 mg U nivers 20 mg 9-02 by mouth ity of tablet 00:00: daily. [place] Medical Branch metFORMIN 2020-0 Yes 1000mg Take 1,000 Univers 1,000 mg 9-02 mg by ity of tablet 00:00: mouth 2 (two) Medical times Branch daily. TRESIBA 2020-0 Yes 16U inject 16 [...] gauge x 00:00: the skin [place] " Nd 00 daily. Medical Branch TRESIBA 2020-0 Yes 16U inject 16 Unive rs FLEXTOUCH 8-18 Units ity of U-100 100 00:00: under the [place] unit/mL (3 00 skin Medical mL) InPn daily. Branch MELVA PEN 2020-0 Yes 1{each} inject 1 Un scar NEEDLE 32 8-18 Each under ity of gauge x 00:00: the skin [place] " Nd 00 daily. Medical Branch TRESIBA 2020-0 Yes 16U inject 16 Unive rs FLEXTOUCH 8-18 Units ity of U-100 100 00:00: under the [place] unit/mL (3 00 skin Medical mL) InPn daily. Branch MELVA PEN 2020-0 Yes 1{each} inject 1 Un scar NEEDLE 32 8-18 Each under ity of gauge x 00:00: the skin [place] " Nd 00 daily. Medical Branch TRESIBA 2020-0 Yes [...] gauge x 00:00: the skin [place] " Nd 00 daily. Medical Branch TRESIBA 2020-0 Yes [...] [place] 32" Ndle 00 daily. Medical Branch MELVA PEN [...] [place] 32" Ndle 00 daily. Medical Branch SUMAtriptan 2020-0 [...] mg by ity of capsule 00:00: mouth () Medical times Branch daily. gabapentin 2020-0 Yes 400mg Take 400 Un scar 400 mg 7-28 mg by ity of capsule 00:00: mouth 3 (three) Medical times Branch daily. gabapentin 2020-0 Yes 400mg Take 400 Un scar 400 mg 7-28 mg by ity of capsule 00:00: mouth () Medical times Branch daily. gabapentin 2020-0 Yes 400mg Take 400 Un scar 400 mg 7-28 mg by ity of capsule 00:00: mouth () Medical times Branch daily. gabapentin 2020-0 Yes 400mg Take 400 Un scar 400 mg 7-28 mg by ity of capsule 00:00: mouth () Medical times Branch daily. gabapentin 2020-0 Yes 400mg Take 400 Un scar 400 mg 7-28 mg by ity of capsule 00:00: mouth [place] () Medical times Branch daily. gabapentin 2020-0 Yes 400mg Take 400 Un scar 400 mg 7-28 mg by ity of capsule 00:00: mouth [place] () Medical times Branch daily. gabapentin 2020-0 Yes 400mg Take 400 Un scar 400 mg 7-28 mg by ity of capsule 00:00: mouth [place] () Medical times Branch daily. gabapentin 2020-0 Yes 400mg Take 400 Un scar 400 mg 7-28 mg by ity of capsule 00:00: mouth [place] () Medical times Branch daily. nateglinide 2020-0 Yes 60mg Take 60 mg Univers 60 mg 7-22 by mouth 3 ity of tablet 00:00: (three) 00 times Medical daily. Branch nateglinide 2020-0 Yes 60mg Take 60 mg Univers 60 mg 7-22 by mouth 3 ity of tablet 00:00: (three) [place] 00 times Medical daily. Branch nateglinide 2020-0 [...] mouth 3 ity of tablet 00:00: (three) [place] 00 times Medical daily. Branch nateglinide 2020-0 Yes 60mg Take 60 mg Univers 60 mg 7-22 by mouth 3 ity of tablet 00:00: (three) [place] 00 times Medical daily. Branch nateglinide 2020-0 [...] by mouth ity of tablet 00:00: daily. [place] Medical Branch propranoloL 2020-0 Yes 10mg Take [...] by mouth ity of tablet 00:00: daily. [place] [facility] propranoloL 2020-0 Yes 10mg Take 10 mg Univers 10 mg 7-16 by mouth ity of tablet 00:00: daily. [place] [facility] propranoloL 2020-0 Yes 10mg Take 10 mg Univers 10 mg 7-16 by mouth ity of tablet 00:00: daily. [address] propranoloL 2020-0 Yes 10mg Take 10 mg Univers 10 mg 7-16 by mouth ity of tablet 00:00: daily. [place] [facility] propranoloL 2020-0 Yes 10mg Take 10 mg Univers 10 mg 7-16 by mouth ity of tablet 00:00: daily. [address] propranoloL 2020-0 Yes 10mg Take 10 mg Univers 10 mg 7-16 by mouth ity of tablet 00:00: daily. [address] propranoloL 2020-0 Yes 10mg Take 10 mg Univers 10 mg 7-16 by mouth ity of tablet 00:00: daily. [address] gabapentin gabapentin No 1capsul TID gabapentin [...] route. Tresiba Tresiba No 15unit( Tresiba Jhoan lozae FlexTouch FlexTouch s) FlexTouch Family U-100 U-100 [...] 2020-01-04 14:25:00 121 mm[Hg] Univer sity of [facility] Diastolic blood 2020-01-04 14:25:00 59 mm[Hg] [facility] Heart rate 2020-01-04 14:25:00 51 /min [facility] Body temperature 2020-01-04 14:25:00 36.22 [facility] Respiratory rate 2020-01-04 14:25:00 12 /min [facility] Oxygen saturation in 2020-01-04 14:25:00 96 /min University of Arterial blood by [facility] Pulse oximetry [place] Body height 2019-12-30 15:14:00 177.8 cm [facility] Body weight 2019-12-30 15:14:00 69.9 kg [facility] BMI 2019-12-30 15:14:00 22.11 kg/m2 [facility] Systolic blood 2019-12-21 13:47:00 128 mm[Hg] Univer sity of [facility] Diastolic blood 2019-12-21 13:47:00 65 mm[Hg] Unive rsity of [facility] Heart rate 2019-12-21 13:47:00 49 /min [facility] Oxygen saturation in 2019-12-21 13:47:00 93 /min University of Arterial blood by [facility] Pulse oximetry Branch Respiratory rate 2019-12-21 13:39:00 13 /min Univ ersity [facility] [place] [facility] Body temperature 2019-12-21 13:29:00 36.28 [facility] Body height 2019-12-15 14:45:00 177.8 cm Universi ty of [place] [facility] Body weight 2019-12-15 14:45:00 69.9 kg Universi ty [facility] [place] [facility] BMI 2019-12-15 14:45:00 22.11 kg/m2 Universi ty [facility] [place] [facility] Systolic blood 2019-11-30 13:45:00 105 mm[Hg] Univer sity of pressure [facility] Diastolic blood 2019-11-30 13:45:00 50 mm[Hg] Unive rsity of pressure [facility] Heart rate 2019-11-30 13:45:00 48 /min Universi ty [facility] [place] [facility] Body temperature 2019-11-30 13:45:00 36.56 [facility] Univ ersity of [facility] Respiratory rate 2019-11-30 13:45:00 14 /[facility] in 2019-11-30 13:45:00 99 /min [facility] Arterial blood by [facility] Pulse oximetry Branch Body height 2019-11-27 17:47:00 177.8 cm Universi ty [facility] [place] [facility] Body weight 2019-11-27 17:47:00 69.9 kg Universi ty [facility] Medical Branch BMI 2019-11-27 17:47:00 22.11 kg/m2 Universi ty [facility] Medical Branch Procedures Procedure Date / Time Performed Performing Clinician [facility] e [place] TIME OR 2020-01-04 14:21:26 Hemant Shrestha [facility] (NON-REPORTABLE) Medical Branch POCT GLUCOSE(AGE 2020-01-04 13:29:00 [facility] Medical Branch CONSENT/REFUSAL FOR 2020-01-01 15:33:47 Doctor Unassigned, No [facility] DIAGNOSIS AND Name Medical Branch TREATMENT ASSIGNMENT OF BENEFITS 2020-01-01 15:33:30 Doctor Unassigned, No [facility] DSU PRE-OP 2019-12-29 06:01:00 [facility] PO[facility]SE(AGE 2019-12-21 12:13:00 Maurilio Raphael [facility] >30DAYS) Medical Branch ASSIGNMENT OF BENEFITS 2019-12-16 13:56:18 Doctor Unassigned, No [facility] Branch CONSENT/REFUSAL FOR 2019-12-16 13:55:53 Doctor Unassigned, No Un [facility] DIAGNOSIS AND [facility] Medical [place] TREATMENT [place] TIME OR 2019-11-30 13:23:32 Hemant Shrestha [facility] (NON-REPORTABLE) Medical [place] POCT GLUCOSE(AGE 2019-11-30 12:28:00 Maurilio Raphael [facility] >30DAYS) Medical Branch DAY SURGERY - ADC 2019-11-30 05:01:00 Doctor Unassigned, No [facility] (ID NOW RAPID 2019-11-27 19:31:00 Hemant Shrestha Un [facility] TESTING) Medical Branch ASSIGNMENT OF BENEFITS 2019-11-27 19:12:25 Doctor Unassigned, No [facility] DSU PRE-OP 2019-11-26 05:01:00 Doctor Unassigned, No Univer [facility] ASSIGNMENT OF BENEFITS 2019-11-24 19:07:36 Doctor Unassigned, No [facility] Encounters Start End Encounter Admission Attending Care Care Encounter Source Date/Time Date/Time Type Type Clinicians Facility Department ID 2022-12-12 Outpatient [facility] [id number] Common 15:56:00 Nitish [id number] [facility] 2020-12-24 Outpatient Emil SHRESTHA [facility] [id number] Univers 02:50:57 [facility] 2020-12-24 [facility] [id number] Univers 00:04:51 [facility] 2020-12-23 Outpatient Emil SHRESTHA [facility] [id number] Univers 22:43:32 [facility] 2020-12-23 [facility] [id number] Univers 20:42:29 [facility] 2020-01-13 2020-01-13 Ruben Martinez [facility] [id number] Univers 00:00:00 00:00:00 (Out) Handy Riggs [id number] [place] [id number] [facility] [id number] [address] 2020-01-04 2020-01-04 [facility] [id number] Univers 07:15:00 08:40:00 Encounter Hemant Riggs [id number] [place]2.686 [place] [id number] [address] 2020-01-01 2020-01-01 Laboratory Only, Adc Test [facility] 1.2.840. 114 [id number] Univers 09:34:24 09:49:24 Only Hemant Shresthaton 350.1.13.1 0 ity of [place] 4.2.7.2.686 [facility] [id number] [address] 2020-01-01 2020-01-[address] [facility] [id number] Univers 08:30:00 08:30:00 HEMANT ity of [facility] 2019-12-21 2019-12-21 [facility] 1.2.840.114 [id number] Univers 06:56:00 08:59:00 Encounter Hemant [place] [id number] [place] 4[place]2.[place].2.686 [place] [id number] [address] 2019-12-18 2019-12-18 Letter CALLIE Machuca 1.2.840.114 [id number] Univers 00:00:00 00:00:00 (Out) Patient TAHIR [id number] it y of Does [facility] 4.[place].2.686 [place] [id number] [address] 2019-12-17 2019-12-17 Outpatient Laura-Paul P VFP [phone] Village 01:31:00 01:31:00 _A_AH [id number] Family Practic e 2019-12-16 2019-12-16 Laboratory Only, Adc Test [facility] 1.2.840. 114 [id number] Univers 08:58:42 09:13:42 Only Hemant Srhesthaton 350.1.13.1 0 [place] 4[place]2.7.2.686 [place] [id number] [facility] [address] [place] 2019-12-16 2019-12-16 Outpatient R [facility] [id number] Univers 09:00:00 09:00:00 ity of [facility] 2019-12-16 2019-12-16 Telephone Only, [facility] 1.2.840.114 [id number] Univers 00:00:00 00:00:00 Test [place] 350.1.13.10 i ty of [place] 4.2.7.2.686 [facility] [place] [id number] [facility] 353 [place] 2019-12-07 2019-12-07 Letter CALLIE Martinez 1.2.840.114 [id number] Univers 00:00:00 00:00:00 (Out) Handy H TAHIR 350.1.13.10 i ty of [facility] 4.2.7.2.686 [place] [id number] [facility] 019 Branch 2019-12-07 2019-12-07 Natasha [facility] [place] - [id number] V illage 00:00:00 00:00:00 [facility] huber o, 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 2019-11-30 2019-11-30 [facility] 1.2.840.114 [id number] Univers 07:14:00 09:09:00 Encounter Hemant Riggs 350.1.13.10 [place] 4[place]2.[place].2.[place] [id number] Med [facility] 071 Branch 2019-11-30 2019-11-30 Orders Doctor CALLIE 1.2.840.114 [id number] Univers 00:00:00 00:00:00 Only Unassigned, TAHIR 350.1.13.[address] [place] [facility] 4.2.7.2.686 [place] [id number] [facility] 009 Branch 2019-11-27 2019-11-27 Laboratory Only, Adc Test [facility] 1.2.840. 114 [id number] Univers 14:22:37 14:37:37 Only Hemant Shresthaton 350.1.13.1 0 [place] 4.2.7.2.686 [place] [id number] [address] 2019-11-27 2019-11-27 Outpatient Emil SHRESTHA [facility] [id number] Univers 14:30:00 14:30:00 HEMANT ity [facility] 2019-11-27 2019-11-27 Orders Doctor CALLIE 1.2.840.114 [id number] Univers 00:00:00 00:00:00 Only Unassigned, TAHIR 350.1.13.[address] [facility] 4.2.7.2.686 [place] [id number] [address] 2019-11-24 2019-11-24 Outpatient Emil SHRESTHA [facility] [id number] Univers 15:15:00 15:15:00 HEMANT ity [facility] [place] [facility] 2019-11-24 2019-11-24 Drier Operator Betsy, Adc Lab Main [facility] 1.2.8 40.114 [id number] Univers 14:08:39 14:23:39 Visit Hemant Shrestha Oneil 350.1.13.1 0 ity of [place] 4.2.7.2.686 [facility] [id number] [address] 2019-11-24 2019-11-24 Orders Doctor LEDESMA 1.2.840.114 [id number] Univers 00:00:00 00:00:00 Only Unassigned, TAHIR 350.1.13.[address] [facility] 4.2.7.2.686 [place] [id number] [address] 2019-07-27 2019-07-27 Outpatient Laura-Mbayo VFP [facility] [id number] [facility] 06:23:00 06:23:00 _A_AH [id number] Family Practic e 2019-07-06 2019-07-06 Outpatient Laura-Mbayo VFP P [id number] [facility] 02:33:00 02:33:00 _A_AH [id number] Family Practic e 2019-05-25 2019-05-25 Natasha [facility] [place] - [id number] V illage 00:00:00 00:00:[address] [facility] [address] [facility] Fam huber mackenzie, SILICA MIXER OPERATOR: Trevon - Pracarchie steve [address] [email or web address], [address] [place] [address], [place] [address] , Ph. 2019-04-15 2019-04-15 [facility] [id number] [facility] 07:15:00 07:15:00 _A_AH [id number] Family Practic e Results Test Description Test Time Test Comments Results Result Sourc e Comments [place] TIME OR 2020-01-04 These images do Universit y of (NON-REPORTABLE) 14:25:21 not require a [facility] Radiology [place] diagnostic report. POCT Glucose 2020-01-04 13:29:00 Test Item Value Reference Range Interpretation Comme nts POCT Glu (age>30days) (test code = 3342) 171 mg/dL 70-110 A Lab Interpretation (test code = 05223-0) Abnormal [facility] [id number] 12:13:00 Test Item Value Reference Range Interpretation Comments POCT Glu (age>30days) (test code = 114 mg/dL 70-110 A 3342) Lab Interpretation (test code = Abnormal 61109-7) [facility]2019-11-30 13:24:35 These images do not require a Radiology diagnostic report.[facility] [id number] 12:28:00 Test Item Value Reference Range Interpretation Comments POCT Glu (age>30days) (test code = 97 mg/dL 70-110 3342) [facility] NOW RAPID TESTING)2019-11-27 19:58:00 Test Item Value Reference Range Interpretation Comments SARS-CoV-2 Rapid ID NOW Not Detected Not Detected (test code = 22030-0) VANDANA (test code = VANDANA) ID NOW COVID-19 Assay is an isothermal nucleic acid amplification test intended for the qualitative detection of nucleic acid from SARS-CoV-2 viral RNA in nasopharyngeal (SILICA MIXER OPERATOR) specimens. It is used under Emergency Use [...] indicated. Lab Interpretation Normal (test code = 13997-6) [facility]
[2023-01-16 10:27] LABS: Specific Gravity 1.022 (1.005-1.030); Urine Bacteria None Seen /HPF (<20); Urine Bilirubin NEGATIVE (Negative); Urine Blood Negative (Negative); Urine Clarity Clear (Clear); Urine Color Light-Yellow (Yellow); Urine Glucose NEGATIVE (Negative); Urine Mucus Slight /HPF (None Seen); Urine Protein TRACE (Negative); Urine RBC <5 /HPF (None Seen); Urine Urobilinogen Normal (Normal); Urine pH 6.5 (5.0-7.0)
[2023-01-16 10:36] LABS: Hematocrit 34.9 % (39.6-49.0); MCV 85.7 fL (80-100); MPV 7.6 fL (7.6-11.3); Platelets 281 thou/uL (152-406); RBC Red Blood Cell Count 4.07 M/uL (4.33-5.43)
--- NOTE | 2023-01-16 11:52 | ER ---
Nurse's Notes [facility] Name: Mati Aragon Age: 77 yrs Sex: Male : 1945 Arrival Date: 01/16/2023 Time: 09:25 Bed 17 Private MD: Diagnosis: Type 2 diabetes mellitus with hypoglycemia without coma Presentation: 01/16 09:32 Chief complaint: Patient states: had a low blood sugar, the says all of a sudden iw he told her he was sleepy, then he was yelling and he sat himself down. has been eating normally, did not check his sugar this morning, they could not get home to wake up. Coronavirus screen: At this time, the client does not indicate any symptoms associated with coronavirus-19. Ebola Screen: Patient negative for fever greater than or equal to 101.5 degrees Fahrenheit, and additional compatible Ebola Virus Disease symptoms Patient denies exposure to infectious person. Patient denies travel to an Ebola-affected area in the 21 days before illness onset. No symptoms or risks identified at this time. Initial Sepsis Screen: Does the patient meet any 2 criteria? No. Patient's initial sepsis screen is negative. Does the patient have a suspected source of infection? No. Patient's initial sepsis screen is negative. Risk Assessment: Do you want to hurt yourself or someone else? Patient reports no desire to harm self or others. Onset of symptoms was January 16, 2023. 09:32 Method Of Arrival: Ambulatory iw 09:32 Acuity: ROSIE 3 iw Historical: - Allergies: 09:34 No Known Allergies; iw - PMHx: 09:34 Diabetes - IDDM; Hyperlipidemia; Hypothyroidism; iw - Immunization history:: Adult Immunizations up to date. - Social history:: Smoking status: Patient denies any tobacco usage or history of. Screenin:24 [facility] ED Fall Risk Assessment (Adult) History of falling in the last 3 months, me1 including since admission No falls in past 3 months (0 pts) Confusion or Disorientation No (0 pts) Intoxicated or Sedated No (0 pts) Impaired Gait No (0 pts) Mobility Assist Device Used No (0 pt) Altered Elimination No (0 pt) Score/Fall Risk Level 0 - 2 = Low Risk. Abuse screen: Denies threats or abuse. Nutritional screening: No deficits noted. Tuberculosis screening: No symptoms or risk factors identified. Assessment: 10:24 General: Appears comfortable, well groomed, well developed, well nourished, Behavior is me1 calm, cooperative, appropriate for age, Reports had a low blood sugar, the says all of a sudden he told her he was sleepy, then he was yelling and he sat himself down. has been eating normally, did not check his sugar this morning, they could not get home to wake up. Pain: Denies pain. Neuro: Level of Consciousness is awake, alert, obeys commands, Oriented to person, place, time, situation, Appropriate for age. Cardiovascular: Capillary refill < 3 seconds Patient's skin is warm and dry. Respiratory: Airway is patent Respiratory effort is even, unlabored, Respiratory pattern is regular, symmetrical. Vital Signs: 09:32 BP 139 / 63; Pulse 58; Resp 16; Temp 98.4; Pulse Ox 98% on R/A; iw 10:28 BP 134 / 59; Pulse 59; Resp 16; Pulse Ox 100% on R/A; me1 11:00 BP 145 / 56; Pulse 54; Resp 17; Pulse Ox 97% on R/A; me1 11:30 BP 136 / 58; Pulse 53; Resp 16; Pulse Ox 98% on R/A; me1 12:00 BP 141 / 56; Pulse 51; Resp 20; Pulse Ox 99% on R/A; me1 12:15 BP 128 / 51; Pulse 65; Resp 17; Pulse Ox 98% on R/A; me1 ED Course: 09:27 Patient arrived in ED. mr 09:28 Geovanna Jaime PA-C is PHCP. sb4 09:28 Chirag Bryan MD is Attending Physician. sb4 09:34 Triage completed. iw 09:35 Arm band placed on. iw 09:57 Jennifer Ross, [place] is Primary Nurse. me1 10:18 UAM Sent. me1 10:24 Patient has correct armband on for positive identification. Bed in low position. Call me1 light in reach. Side rails up X 1. Provided Education on: POC. Verbalized understanding. . 10:24 No provider procedures requiring assistance completed. me1 10:29 CBC w/o diff Sent. me1 10:29 BMP Sent. me1 13:05 IV discontinued, intact, bleeding controlled, No redness/swelling at site. Pressure me1 dressing applied. Administered Medications: No medications were administered Medication: 10:24 VIS not applicable for this client. me1 Outcome: 11:52 Discharge ordered by . sb4 12:41 Discharge ordered by MD. sb4 13:05 Discharged to home ambulatory, with significant other, me1 13:05 Condition: stable 13:05 Discharge instructions given to patient, significant other, Instructed on discharge instructions, follow up and referral plans. Demonstrated understanding of instructions, follow-up care, 13:05 Patient left the ED. me1 Signatures: Charley Vizcaino, Reg Reg mr Columba Walden, RN RN iw Geovanna Jaime PAMarioC PAMarioC sb4 Jennifer Ross RN RN me1 Corrections: (The following items were deleted from the chart) 10:24 09:32 Chief complaint: Patient states: had a low blood sugar, the says all of a me1 sudden he told her he was sleepy, then he was yelling and he sat himself down. has been eating normally, did not check his sugar this morning, they could not get home to wake up iw
--- NOTE | 2023-01-16 11:53 | EDPHYS ---
Physician Documentation [facility] Name: Mati Aragon Age: 77 yrs Sex: Male : 1945 Arrival Date: 01/16/2023 Time: 09:25 Bed 17 Private MD: ED Physician Chirag Bryan HPI: 01/16 09:59 This 77 yrs old Male presents to ER via Ambulatory with complaints of Low Blood Sugar. sb4 10:26 states that patient woke up altered and combative this morning. She states that sb4 this is happened before when his blood sugar has been low. They did not check his blood sugar but he did not take any insulin this morning either. He only takes 60 units of long-acting every morning, did not take any last night. Reports eating a normal amount of food yesterday. Recently started on donepezil for dementia. Patient is now back to baseline, BGL is 62 upon arrival. Has a CGM but does not know how to set it up. Historical: - Allergies: 09:34 No Known Allergies; iw - PMHx: 09:34 Diabetes - IDDM; Hyperlipidemia; Hypothyroidism; iw - Immunization history:: Adult Immunizations up to date. - Social history:: Smoking status: Patient denies any tobacco usage or history of. ROS: 10:26 Constitutional: Negative for fever, chills, and weight loss, sb4 10:26 Neuro: Positive for altered mental status, 10:26 All other systems are negative, Exam: 10:26 Constitutional: This is a well developed, well nourished patient who is awake, alert, sb4 and in no acute distress. Head/Face: Normocephalic, atraumatic. Eyes: Extra-ocular motions intact. Periorbital areas with no swelling, redness, or edema. ENT: Mucous membranes moist. Cardiovascular: Regular rate and rhythm with a normal S1 and S2. Respiratory: Lungs have equal breath sounds bilaterally, clear to auscultation and percussion. No rales, rhonchi or wheezes noted. No increased work of breathing, no retractions or nasal flaring. Abdomen/GI: Soft, non-tender, no distension. Skin: Warm, dry with normal turgor. Normal color with no rashes, no lesions, and no evidence of cellulitis. MS/ Extremity: Pulses equal, no cyanosis. Neurovascular intact. Full, normal range of motion. Neuro: Awake and alert, GCS 15, oriented to person, place, time, and situation. Motor strength 5/5 in all extremities. Sensory grossly intact. Vital Signs: 09:32 BP 139 / 63; Pulse 58; Resp 16; Temp 98.4; Pulse Ox 98% on R/A; iw 10:28 BP 134 / 59; Pulse 59; Resp 16; Pulse Ox 100% on R/A; me1 11:00 BP 145 / 56; Pulse 54; Resp 17; Pulse Ox 97% on R/A; me1 11:30 BP 136 / 58; Pulse 53; Resp 16; Pulse Ox 98% on R/A; me1 12:00 BP 141 / 56; Pulse 51; Resp 20; Pulse Ox 99% on R/A; me1 12:15 BP 128 / 51; Pulse 65; Resp 17; Pulse Ox 98% on R/A; me1 MDM: 09:31 Patient medically screened. sb4 10:26 Differential diagnosis: hypoglycemia, UTI, dehydration, electrolyte abnormality, sb4 dementia. 11:53 Data reviewed: vital signs, nurses notes, lab test result(s), I have discussed the sb4 patient's presentation/case with the attending Emergency Department Physician; and as a result, I will discharge patient. Historians other than the Patient: and daughter. Care significantly affected by the following chronic conditions: Diabetes, Hypertension. Counseling: I had a detailed discussion with the patient and/or guardian regarding the historical points, exam findings, and any diagnostic results supporting the discharge/admit diagnosis, the presence of at least one elevated blood pressure reading (>120/80) during this emergency department visit, lab results, the need for outpatient follow up, for definitive care, to return to the emergency department if symptoms worsen or persist or if there are any questions or concerns that arise at home. 12:45 Historians other than the Patient: Daughter/Son: daughter. sb4 01/16 09:53 Order name: Glucose, Ancillary Testing; Complete Time: 09:57 EDMS 01/16 09:57 Order name: UAM; Complete Time: 10:30 sb4 01/16 09:57 Order name: CBC w/o diff; Complete Time: 10:41 sb4 01/16 09:57 Order name: BMP; Complete Time: 10:54 sb4 01/16 11:58 Order name: Glucose, Ancillary Testing; Complete Time: 11:59 EDMS 01/16 12:33 Order name: Glucose, Ancillary Testing; Complete Time: 12:41 EDMS 01/16 09:36 Order name: Accucheck; Complete Time: 09:50 sb4 01/16 11:04 Order name: PO challenge; Complete Time: 11:48 sb4 01/16 11:04 Order name: Accucheck; Complete Time: 11:48 sb4 Administered Medications: No medications were administered Disposition: 15:00 Co-signature as Attending Physician, Chirag Bryan MD I reviewed the patient's care rn provided by the Advanced Practice Provider and agree with the diagnosis and treatment plan. Disposition Summary: 01/16/23 12:41 Discharge Ordered Notes: Location: Home(01/16/23 12:41) sb4 Problem: new(01/16/23 12:41) sb4 Symptoms: have improved(01/16/23 12:41) sb4 Condition: Stable(01/16/23 12:41) sb4 Diagnosis - Type 2 diabetes mellitus with hypoglycemia without coma(01/16/23 12:41) sb4 Followup: sb4 - With: Emergency Department - When: As needed - Reason: Trouble breathing, Worsening of condition Forms: - Medication Reconciliation Form sb4 - Thank You Letter sb4 - Antibiotic Education sb4 - Prescription Opioid Use sb4 - Patient Portal Instructions sb4 - Leadership Thank You Letter sb4 Signatures: Dispatcher [employer] Columba Blakely RN RN iw Nieto, Roman, MD MD rn Brown, Sophia PAEloy PAMarioC sb4 Jennifer Ross RN RN me1 Corrections: (The following items were deleted from the chart) 12:01 11:52 Home sb4 sb4 12:01 11:52 new sb4 sb4 12:01 11:52 have improved sb4 sb4 12:01 11:52 Stable sb4 sb4 12:01 11:52 Type 2 diabetes mellitus with hypoglycemia without coma sb4 sb4
[2023-01-16 13:11] VITALS: TEMP 98.4
[2023-01-16 13:17] VITALS: BP 128/51; O2SAT 98
== END 2023-01-16 13:05 | disposition home or self-care (01) ==
LOC: ER 09:25
DX: E11.649 Type 2 diabetes mellitus with hypoglycemia without coma (principal)
CPT/HCPCS: 36415; 80048; 81001; 82947; 85027; 99283

== ENCOUNTER → 2023-03-17 | Emergency (ER) | payer OTHER ==
[~2023-03-17] MED LIST: ALBUTEROL 2.5 MG/3 ML NEB SOL ONE; IPRATROPIUM BROM 0.5MG/2.5ML ONE
--- OUTSIDE RECORDS SUMMARY | 2023-03-17 16:30 | XMS REPORT | Continuity of Care Document ---
Author Name Unknown Address [address] [facility]. [address] [place] [id number] [facility] thconnect Address [address] [facility] [place] [address] Care Team Providers Care Affirmative Action Specialist Name Role Phone DIANNE SEYMOUR Primary Care Physician Nitish Saha Attending Clinician Unavailable HEMANT SHRESTHA Attending Clinician UnavailYISEL Ruggiero Attending Clinician UnavailYISEL Nicole Attending Clinician Moy lewis Doctor Unassigned, [place] Attending Clinician U jenny Martinez MD, Handy Coffey Attending Clinician Hemant Shrestha MD Attending Clinician Only, Adc Test Attending Clinician Unavailable Pcp, Patient Does Not Have A Attending Clinician Laura-Mbstacyo_A_AH Attending Clinician Unavailable Pob, [facility] Main Attending Clinician HEMANT Carrillo Admitting Clinician Hemant Goddard MD Admitting Clinician [phone] Laura-Norberto_A_AH Admitting Clinician Unavailable Payers Payer Name Policy Type Policy Number Effective Date Expirati on Date Source [place] SNP [id number] 2019 00:00:00 [employer] [place] Mario GLEASON (MEDICARE REPLACEMENT/ADVANT AGE - HMO) [id number] 2019 00:00:00 Problems Condition Name Condition Details Condition Category Status Onset Date Resolution Date Last Treatment Date Treating Clinician Comments Source Migraine Migraine Problem Active 2019-02 012 00:00: 00 [facility] Ne[facility] pain Neck Pain Problem Active 2019-02 0-12 00:00: 00 [facility] 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 Active 05-12 00:00: 00 [facility] Hyperlipid emia Hyperlipid emia Problem Active 05-12 00:00: 00 [facility] Recurrent major depression in remission Recurrent Major Depression in Remission Problem Active 05-12 00:00: 00 [facility] Diabetic on insulin Diabetic on Insulin Problem Active 05-12 00:00: 00 [facility] Allergies, Adverse Reactions, Alerts Allergy Name Allergy Type Status Severity Reaction(s) Onset Date Inactive Date Treating Clinician Comments Source NO KNOWN ALLERGIE S Drug Class Active [facility] Social History Social Habit Start Date Stop Date Quantity Comments Source History of tobacco use Current smoker [facility] Sexual orientation U [facility] Exposure to SARS-CoV-2 (event) Not sure General acute hospital History of Social function 2020-01-04 00:00:00 2020-01-04 00:00:00 [facility] Tobacco use and exposure 2019-11-27 00:00:00 2019-11-27 00:00:00 User of smokeless tobacco [facility] Sex Assigned At 1945 00:00:00 1945 00:00:00 [facility] Smoking Status Start Date Stop Date Source Unknown if ever smoked [facility] Ex-smoker 2019-11-27 00:00:00 2019-11-27 00:00:00 U [facility] Medications Ordered Medication Name Filled Medication Name Start Date Stop Date Current Medication? Ordering Clinician Indication Dosage Frequency Signature (SIG) Comments Components Source lactated ringers IV infusion 1,000 mL 2019-02 13:30: 00 01-03 13:28 :00 No 1000mL at 42 mL/hr, 1,000 mL, IV Infusion, ONCE, 1 dose, 01/04/20 at 0730, Routine, DSU Pre-op [facility] lactated ringers IV infusion 1,000 mL 2019-02 0 14:00: 00 Yes 1000mL at 50 mL/hr, 1,000 mL, IV Infusion, CONTINUOUS , Starting Sat12/21/19 at 0900, Until Discontinu ed, Routine, PACU [facility] HYDROcodone -acetaminop hen (NORCO 5) 5-325 mg tablet 1 tablet 2019-02 14:00: 00 12-21 01:59 :00 No 1{tbl} 1 tablet, Oral, ONCE, 1 dose, Sat12/21/19 at 0900, Routine, PACU [facility] FENTanyl PF (SUBLIMAZE (PF)) injection 25 mcg 2019-02 13:58: 50 Yes 25ug 25 mcg, Slow IV Push, Q5MIN PRN, 4 doses, Starting Sat12/21/19 at 0858, Until Discontinu ed, Routine, Pain (scale 4-6), PACU [facility] triamcinolo ne acetonide (KENALOG) injection 2019-02 13:20: 00 Yes PRN, Starting Sat12/21/19 at 0820, Until Discontinu ed, Routine, Intra-op [facility] lidocaine 1% (XYLOCAINE) 10 mg/mL (1 %) injection 2019-02 13:20: 00 Yes PRN, Starting Sat12/21/19 at 0820, Until Discontinu ed, Routine, Intra-op [facility] iohexoL (OMNIPAQUE 350 BULK-50 mL) injection 2019-02 13:20: 00 Yes PRN, Starting Sat12/21/19 at 0820, Until Discontinu ed, Routine, Intra-op [facility] bupivacaine (preserv free) (SENSORCAIN E MPF) 0.25 % (2.5 mg/mL) injection 2019-02 13:19: 00 Yes PRN, Starting Sat12/21/19 at 0819, Until Discontinu ed, Routine, Intra-op [facility] ceFAZolin (ANCEF) 1,000 mg in NaCl 0.9% (NS) 50 mL MINI-BAG 2019-02 12:31: 23 Yes 1000mg 1,000 mg, IV Piggyback, O.R. HOLDING ONCE, 1 dose, Starting Sat12/21/19 at 0731, Until Discontinu ed, 50 mL
Reas on for Anti-Infec tive: Surgical Prophylaxi s
Surgi little Prophylaxi s: Neurosurge ry
Dura tion of therapy: within 24 hours of surgery [facility] lactated ringers IV infusion 1,000 mL 2019-02 12:15: 00 12-20 12:16 :00 No 1000mL at 42 mL/hr, 1,000 mL, IV Infusion, ONCE, 1 dose, Sat12/21/19 at 0715, Routine, DSU Pre-op [facility] lactated ringers IV infusion 1,000 mL 2019-02 13:45: 00 Yes 1000mL at 42 mL/hr, 1,000 mL, IV Infusion, CONTINUOUS , Starting Sat11/30/19 at 0845, Until Discontinu ed, Routine, PACU [facility] FENTanyl PF (SUBLIMAZE (PF)) injection 25 mcg 2019-02 13:34: 20 Yes 25ug 25 mcg, Slow IV Push, Q5MIN PRN, 4 doses, Starting 11/30/19 at 0834, Until Discontinu ed, Routine, Pain (scale 4-6), PACU [facility] ondansetron (ZOFRAN (PF)) injection 4 mg 2019-02 13:34: 20 Yes 4mg 4 mg, Slow IV Push, PRN, 1 dose, Starting 11/30/19 at 0834, Until Discontinu ed, Routine, Nausea and Vomiting (N/V), PACU [facility] triamcinolo ne acetonide (KENALOG) injection 2019-02 13:06: 00 Yes PRN, Starting Sat11/30/19 at 0806, Until Discontinu ed, Routine, Intra-op [facility] lidocaine 1% (XYLOCAINE) 10 mg/mL (1 %) injection 2019-02 13:06: 00 Yes PRN, Starting Sat11/30/19 at 0806, Until Discontinu ed, Routine, Intra-op [facility] bupivacaine (preserv free) (SENSORCAIN E MPF) 0.25 % (2.5 mg/mL) injection 2019-02 13:06: 00 Yes PRN, Starting Sat11/30/19 at 0806, Until Discontinu ed, Routine, Intra-op [facility] lactated ringers IV infusion 1,000 mL 2019-02 12:45: 00 11-29 12:36 :00 No 1000mL at 42 mL/hr, 1,000 mL, IV Infusion, ONCE, 1 dose, 11/30/19 at 0745, Routine, DSU Pre-op [facility] traMADoL 50 mg tablet 11-11 00:00: 00 Yes 50mg Take 50 mg by mouth 2 (two) times daily. [facility] tra[facility]AD[facility] 50 mg tablet 11-11 00:00: 00 Yes 50mg Take 50 mg by mouth 2 (two) times daily. [facility] traMADoL 50 mg tablet 11-11 00:00: 00 Yes 50mg Take 50 mg by mouth 2 (two) times daily. [facility] traMADoL 50 mg tablet 11-11 00:00: 00 Yes 50mg Take 50 mg by mouth 2 (two) times daily. [facility] traMADoL 50 mg tablet 11-11 00:00: 00 Yes 50mg Take 50 mg by mouth 2 (two) times daily. [facility] traMADoL 50 mg tablet 11-11 00:00: 00 Yes 50mg Take 50 mg by mouth 2 (two) times daily. [facility] traMADoL 50 mg tablet 11-11 00:00: 00 Yes 50mg Take 50 mg by mouth 2 (two) times daily. [facility] traMADoL 50 mg tablet 11-11 00:00: 00 Yes 50mg Take 50 mg by mouth 2 (two) times daily. [facility] traMADoL 50 mg tablet 11-11 00:00: 00 Yes 50mg Take 50 mg by mouth 2 (two) times daily. [facility] traMADoL 50 mg tablet 11-11 00:00: 00 Yes 50mg Take 50 mg by mouth 2 (two) times daily. [facility] traMADoL 50 mg tablet 11-11 00:00: 00 Yes 50mg Take 50 mg by mouth 2 (two) times daily. [facility] it[facility] traMADoL 50 mg tablet 11-11 00:00: 00 Yes 50mg Take 50 mg by mouth 2 (two) times daily. [facility] traMADoL 50 mg tablet 11-11 00:00: 00 Yes 50mg Take 50 mg by mouth 2 (two) times daily. [facility] gabapentin 600 mg tablet 10-30 00:00: 00 Yes 600mg Take 600 mg by mouth 2 (two) times daily. [facility] 600 mg tablet 10-30 00:00: 00 Yes 600mg Take 600 mg by mouth 2 (two) times daily. [facility] gabapentin 600 mg tablet 10-30 00:00: 00 Yes 600mg Take 600 mg by mouth 2 (two) times daily. [facility] gabapentin 600 mg tablet 10-30 00:00: 00 Yes 600mg Take 600 mg by mouth 2 (two) times daily. [facility] gabapentin 600 mg tablet 10-30 00:00: 00 Yes 600mg Take 600 mg by mouth 2 (two) times daily. [facility] gabapentin 600 mg tablet 10-30 00:00: 00 Yes 600mg Take 600 mg by mouth 2 (two) times daily. [facility] gabapentin 600 mg tablet 10-30 00:00: 00 Yes 600mg Take 600 mg by mouth 2 (two) times daily. [facility] gabapentin 600 mg tablet 10-30 00:00: 00 Yes 600mg Take 600 mg by mouth 2 (two) times daily. [facility] gabapentin 600 mg tablet 10-30 00:00: 00 Yes 600mg Take 600 mg by mouth 2 (two) times daily. [facility] gabapentin 600 mg tablet 10-30 00:00: 00 Yes 600mg Take 600 mg by mouth 2 (two) times daily. [facility] gabapentin 600 mg tablet 10-30 00:00: 00 Yes 600mg Take 600 mg by mouth 2 (two) times daily. [facility] gabapentin 600 mg tablet 10-30 00:00: 00 Yes 600mg Take 600 mg by mouth 2 (two) times daily. [facility] gabapentin 600 mg tablet 10-30 00:00: 00 Yes 600mg Take 600 mg by mouth 2 (two) times daily. [facility] levothyroxi ne 50 mcg tablet 10-27 00:00: 00 Yes 50ug Take 50 mcg by mouth every morning. [facility] lovastatin 20 mg tablet 10-27 00:00: 00 Yes 20mg Take 20 mg by mouth daily. [facility] metFORMIN 1,000 mg tablet 10-27 00:00: 00 Yes 1000mg Take 1,000 mg by mouth 2 (two) times daily. [facility] levothyroxi ne 50 mcg tablet 10-27 00:00: 00 Yes 50ug Take 50 mcg by mouth every morning. [facility] lovastatin 20 mg tablet 10-27 00:00: 00 Yes 20mg Take 20 mg by mouth daily. [facility] metFORMIN 1,000 mg tablet 10-27 00:00: 00 Yes 1000mg Take 1,000 mg by mouth 2 (two) times daily. [facility] levothyroxi ne 50 mcg tablet 10-27 00:00: 00 Yes 50ug Take 50 mcg by mouth every morning. [facility] lovastatin 20 mg tablet 10-27 00:00: 00 Yes 20mg Take 20 mg by mouth daily. [facility] metFORMIN 1,000 mg tablet 10-27 00:00: 00 Yes 1000mg Take 1,000 mg by mouth 2 (two) times daily. [facility] levothyroxi ne 50 mcg tablet 10-27 00:00: 00 Yes 50ug Take 50 mcg by mouth every morning. [facility] lovastatin 20 mg tablet 10-27 00:00: 00 Yes 20mg Take 20 mg by mouth daily. [facility] metFORMIN 1,000 mg tablet 10-27 00:00: 00 Yes 1000mg Take 1,000 mg by mouth 2 (two) times daily. [facility] levothyroxi ne 50 mcg tablet 10-27 00:00: 00 Yes 50ug Take 50 mcg by mouth every morning. [facility] lovastatin 20 mg tablet 10-27 00:00: 00 Yes 20mg Take 20 mg by mouth daily. [facility] metFORMIN 1,000 mg tablet 10-27 00:00: 00 Yes 1000mg Take 1,000 mg by mouth 2 (two) times daily. [facility] levothyroxi ne 50 mcg tablet 10-27 00:00: 00 Yes 50ug Take 50 mcg by mouth every morning. [facility] levothyroxi ne 50 mcg tablet 10-27 00:00: 00 Yes 50ug Take 50 mcg by mouth every morning. [facility] lovastatin 20 mg tablet 10-27 00:00: 00 Yes 20mg Take 20 mg by mouth daily. [facility] metFORMIN 1,000 mg tablet 10-27 00:00: 00 Yes 1000mg Take 1,000 mg by mouth 2 (two) times daily. [facility] lovastatin 20 mg tablet 10-27 00:00: 00 Yes 20mg Take 20 mg by mouth daily. [facility] metFORMIN 1,000 mg tablet 10-27 00:00: 00 Yes 1000mg Take 1,000 mg by mouth 2 (two) times daily. [facility] levothyroxi ne 50 mcg tablet 10-27 00:00: 00 Yes 50ug Take 50 mcg by mouth every morning. [facility] lovastatin 20 mg tablet 10-27 00:00: 00 Yes 20mg Take 20 mg by mouth daily. [facility] metFORMIN 1,000 mg tablet 10-27 00:00: 00 Yes 1000mg Take 1,000 mg by mouth 2 (two) times daily. [facility] levothyroxi ne 50 mcg tablet 10-27 00:00: 00 Yes 50ug Take 50 mcg by mouth every morning. [facility] lovastatin 20 mg tablet 10-27 00:00: 00 Yes 20mg Take 20 mg by mouth daily. [facility] metFORMIN 1,000 mg tablet 10-27 00:00: 00 Yes 1000mg Take 1,000 mg by mouth 2 (two) times daily. [facility] levothyroxi ne 50 mcg tablet 10-27 00:00: 00 Yes 50ug Take 50 mcg by mouth every morning. [facility] lovastatin 20 mg tablet 10-27 00:00: 00 Yes 20mg Take 20 mg by mouth daily. [facility] metFORMIN 1,000 mg tablet 10-27 00:00: 00 Yes 1000mg Take 1,000 mg by mouth 2 (two) times daily. [facility] levothyroxi ne 50 mcg tablet 10-27 00:00: 00 Yes 50ug Take 50 mcg by mouth every morning. [facility] lovastatin 20 mg tablet 10-27 00:00: 00 Yes 20mg Take 20 mg by mouth daily. [facility] metFORMIN 1,000 mg tablet 10-27 00:00: 00 Yes 1000mg Take 1,000 mg by mouth 2 (two) times daily. [facility] levothyroxi ne 50 mcg tablet 10-27 00:00: 00 Yes 50ug Take 50 mcg by mouth every morning. [facility] lovastatin 20 mg tablet 10-27 00:00: 00 Yes 20mg Take 20 mg by mouth daily. [facility] metFORMIN 1,000 mg tablet 10-27 00:00: 00 Yes 1000mg Take 1,000 mg by mouth 2 (two) times daily. [facility] levothyroxi ne 50 mcg tablet 10-27 00:00: 00 Yes 50ug Take 50 mcg by mouth every morning. [facility] lovastatin 20 mg tablet 10-27 00:00: 00 Yes 20mg Take 20 mg by mouth daily. [facility] metFORMIN 1,000 mg tablet 9-02 00:00: 00 Yes 1000mg Take 1,000 mg by mouth 2 (two) times daily. [facility] TRESIBA FLEXTOUCH U-100 100 unit/mL (3 mL) In 8-18 00:00: 00 Yes 16U inject 16 Units under the skin daily. [facility] MELVA PEN NEEDLE 32 gauge x 5/32" Sdle 8-18 00:00: 00 Yes 1{each} inject 1 Each under the skin daily. [facility] ity [facility] TRESIBA FLEXTOUCH U-100 100 unit/mL (3 mL) In 8-18 00:00: 00 Yes 16U inject 16 Units under the skin daily. [facility] MELVA PEN NEEDLE 32 gauge x 5/32" Sdle 818 00:00: 00 Yes 1{each} inject 1 Each under the skin daily. [facility] TRESIBA FLEXTOUCH U-100 100 unit/mL (3 mL) In 8-18 00:00: 00 Yes 16U inject 16 Units under the skin daily. [facility] MELVA PEN NEEDLE 32 gauge x 5/32" Ndle 8-18 00:00: 00 Yes 1{each} inject 1 Each under the skin daily. [facility] TRESIBA FLEXTOUCH U-100 100 unit/mL (3 mL) In 8-18 00:00: 00 Yes 16U inject 16 Units under the skin daily. [facility] MELVA PEN NEEDLE 32 gauge x 5/32" Sdle 0 8-18 00:00: 00 Yes 1{each} inject 1 Each under the skin daily. [facility] TRESIBA FLEXTOUCH U-100 100 unit/mL (3 mL) In 8-18 00:00: 00 Yes 16U inject 16 Units under the skin daily. [facility] MELVA PEN NEEDLE 32 gauge x 5/32" Ndle 8-18 00:00: 00 Yes 1{each} inject 1 Each under the skin daily. [facility] TRESIBA FLEXTOUCH U-100 100 unit/mL (3 mL) In 2020-0 8-18 00:00: 00 Yes 16U inject 16 Units under the skin daily. [facility] TRESIBA FLEXTOUCH U-100 100 unit/mL (3 mL) In 2019-0 8-18 00:00: 00 Yes 16U inject 16 Units under the skin daily. [facility] MELVA PEN NEEDLE 32 gauge x 5/32" [facility] 2020-0 8-18 00:00: 00 Yes 1{each} inject 1 Each under the skin daily. [facility] TRESIBA FLEXTOUCH U-100 100 unit/mL (3 mL) In 0 8-18 00:00: 00 Yes 16U inject 16 Units under the skin daily. [facility] MELVA PEN NEEDLE 32 gauge x 5/32" [facility] 2019-0 8-18 00:00: 00 Yes 1{each} inject 1 Each under the skin daily. [facility] TRESIBA FLEXTOUCH U-100 100 unit/mL (3 mL) In 0 8-18 00:00: 00 Yes 16U inject 16 Units under the skin daily. [facility] MELVA PEN NEEDLE 32 gauge x 5/32" [facility] 2019-0 8-18 00:00: 00 Yes 1{each} inject 1 Each under the skin daily. [facility] MELVA PEN NEEDLE 32 gauge x 5/32" Sdle 0 8-18 00:00: 00 Yes 1{each} inject 1 Each under the skin daily. [facility] TRESIBA FLEXTOUCH U-100 100 unit/mL (3 mL) In 0 8-18 00:00: 00 Yes 16U inject 16 Units under the skin daily. [facility] MELVA PEN NEEDLE 32 gauge x 5/32" Ndle 2020-0 8-18 00:00: 00 Yes 1{each} inject 1 Each under the skin daily. [facility] TRESIBA FLEXTOUCH U-100 100 unit/mL (3 mL) In 2019-0 8-18 00:00: 00 Yes 16U inject 16 Units under the skin daily. [facility] MELVA PEN NEEDLE 32 gauge x 5/32" Ndle 2020-0 8-18 00:00: 00 Yes 1{each} inject 1 Each under the skin daily. [facility] TRESIBA FLEXTOUCH U-100 100 unit/mL (3 mL) InPn 2020-0 8-18 00:00: 00 Yes 16U inject 16 Units under the skin daily. [facility] MELVA PEN NEEDLE 32 gauge x 5/32" Ndle 2020-0 8-18 00:00: 00 Yes 1{each} inject 1 Each under the skin daily. [facility] TRESIBA FLEXTOUCH U-100 100 unit/mL (3 mL) InPn 2020-0 8-18 00:00: 00 Yes 16U inject 16 Units under the skin daily. [facility] MELVA PEN NEEDLE 32 gauge x 5/32" Ndle 2020-0 8-18 00:00: 00 Yes 1{each} inject 1 Each under the skin daily. [facility] SUMAtriptan 25 mg tablet 2019-0 8-12 00:00: 00 Yes 25mg Take 25 mg by mouth daily. [facility] SUMAtriptan 25 mg tablet 2019-0 8-12 00:00: 00 Yes 25mg Take 25 mg by mouth daily. [facility] SUMAtriptan 25 mg tablet 2019-0 8-12 00:00: 00 Yes 25mg Take 25 mg by mouth daily. [facility] SUMAtriptan 25 mg tablet 2020-0 8-12 00:00: 00 Yes 25mg Take 25 mg by mouth daily. [facility] SUMAtriptan 25 mg tablet 2019-0 8-12 00:00: 00 Yes 25mg Take 25 mg by mouth daily. [facility] SUMAtriptan 25 mg tablet 2020-0 8-12 00:00: 00 Yes 25mg Take 25 mg by mouth daily. [facility] SUMAtriptan 25 mg tablet 2019-0 8-12 00:00: 00 Yes 25mg Take 25 mg by mouth daily. [facility] SUMAtriptan 25 mg tablet 2020-0 8-12 00:00: 00 Yes 25mg Take 25 mg by mouth daily. [facility] SUMAtriptan 25 mg tablet 0 10-06 00:00: 00 Yes 25mg Take 25 mg by mouth daily. [facility] SUMAtriptan 25 mg tablet 0 10-06 00:00: 00 Yes 25mg Take 25 mg by mouth daily. [facility] SUMAtriptan 25 mg tablet 0 - 00:00: 00 Yes 25mg Take 25 mg by mouth daily. [facility] SUMAtriptan 25 mg tablet 0 10-06 00:00: 00 Yes 25mg Take 25 mg by mouth daily. [facility] SUMAtriptan 25 mg tablet 0 10-06 00:00: 00 Yes 25mg Take 25 mg by mouth daily. [facility] tamsulosin 0.4 mg 24 hr capsule 0 10-01 00:00: 00 Yes .4mg Take 0.4 mg by mouth daily. [facility] tamsulosin 0.4 mg 24 hr capsule 0 10-01 00:00: 00 Yes .4mg Take 0.4 mg by mouth daily. [facility] tamsulosin 0.4 mg 24 hr capsule 10-01 00:00: 00 Yes .4mg Take 0.4 mg by mouth daily. [facility] tamsulosin 0.4 mg 24 hr capsule 10-01 00:00: 00 Yes .4mg Take 0.4 mg by mouth daily. [facility] tamsulosin 0.4 mg 24 hr capsule 10-01 00:00: 00 Yes .4mg Take 0.4 mg by mouth daily. [facility] tamsulosin 0.4 mg 24 hr capsule 10-01 00:00: 00 Yes .4mg Take 0.4 mg by mouth daily. [facility] tamsulosin 0.4 mg 24 hr capsule 10-01 00:00: 00 Yes .4mg Take 0.4 mg by mouth daily. [facility] tamsulosin 0.4 mg 24 hr capsule 10-01 00:00: 00 Yes .4mg Take 0.4 mg by mouth daily. [facility] tamsulosin 0.4 mg 24 hr capsule 0 8 00:00: 00 Yes .4mg Take 0.4 mg by mouth daily. [facility] tamsulosin 0.4 mg 24 hr capsule 0 8 00:00: 00 Yes .4mg Take 0.4 mg by mouth daily. [facility] tamsulosin 0.4 mg 24 hr capsule 0 8 00:00: 00 Yes .4mg Take 0.4 mg by mouth daily. [facility] tamsulosin 0.4 mg 24 hr capsule 0 8 00:00: 00 Yes .4mg Take 0.4 mg by mouth daily. [facility] tamsulosin 0.4 mg 24 hr capsule 0 10-01 00:00: 00 Yes .4mg Take 0.4 mg by mouth daily. [facility] gabapentin 400 mg capsule 0 09-21 00:00: 00 Yes 400mg Take 400 mg by mouth 3 (three) times daily. [facility] gabapentin 400 mg capsule 0 09-21 00:00: 00 Yes 400mg Take 400 mg by mouth 3 (three) times daily. [facility] gabapentin 400 mg capsule 0 09-21 00:00: 00 Yes 400mg Take 400 mg by mouth 3 (three) times daily. [facility] gabapentin 400 mg capsule 0 09-21 00:00: 00 Yes 400mg Take 400 mg by mouth 3 (three) times daily. [facility] gabapentin 400 mg capsule 0 09-21 00:00: 00 Yes 400mg Take 400 mg by mouth 3 (three) times daily. [facility] gabapentin 400 mg capsule 0 09-21 00:00: 00 Yes 400mg Take 400 mg by mouth 3 (three) times daily. [facility] gabapentin 400 mg capsule 0 09-21 00:00: 00 Yes 400mg Take 400 mg by mouth 3 (three) times daily. [facility] gabapentin 400 mg capsule 0 09-21 00:00: 00 Yes 400mg Take 400 mg by mouth 3 (three) times daily. [facility] gabapentin 400 mg capsule 0 09-21 00:00: 00 Yes 400mg Take 400 mg by mouth 3 (three) times daily. [facility] gabapentin 400 mg capsule 09-21 00:00: 00 Yes 400mg Take 400 mg by mouth 3 (three) times daily. [facility] gabapentin 400 mg capsule 09-21 00:00: 00 Yes 400mg Take 400 mg by mouth 3 (three) times daily. [facility] gabapentin 400 mg capsule 0 09-21 00:00: 00 Yes 400mg Take 400 mg by mouth 3 (three) times daily. [facility] gabapentin 400 mg capsule 09-21 00:00: 00 Yes 400mg Take 400 mg by mouth 3 (three) times daily. [facility] nateglinide 60 mg tablet 09-15 00:00: 00 Yes 60mg Take 60 mg by mouth 3 (three) times daily. [facility] nateglinide 60 mg tablet 0 09-15 00:00: 00 Yes 60mg Take 60 mg by mouth 3 (three) times daily. [facility] nateglinide 60 mg tablet 09-15 00:00: 00 Yes 60mg Take 60 mg by mouth 3 (three) times daily. [facility] nateglinide 60 mg tablet 09-15 00:00: 00 Yes 60mg Take 60 mg by mouth 3 (three) times daily. [facility] nateglinide 60 mg tablet 09-15 00:00: 00 Yes 60mg Take 60 mg by mouth 3 (three) times daily. [facility] nateglinide 60 mg tablet 0 09-15 00:00: 00 Yes 60mg Take 60 mg by mouth 3 (three) times daily. [facility] nateglinide 60 mg tablet 09-15 00:00: 00 Yes 60mg Take 60 mg by mouth 3 (three) times daily. [facility] nateglinide 60 mg tablet 0 09-15 00:00: 00 Yes 60mg Take 60 mg by mouth 3 (three) times daily. [facility] nateglinide 60 mg tablet 2020-0 7-22 00:00: 00 Yes 60mg Take 60 mg by mouth 3 (three) times daily. [facility] nateglinide 60 mg tablet 2019-0 7-22 00:00: 00 Yes 60mg Take 60 mg by mouth 3 (three) times daily. [facility] nateglinide 60 mg tablet 2020-0 7-22 00:00: 00 Yes 60mg Take 60 mg by mouth 3 (three) times daily. [facility] nateglinide 60 mg tablet 2019-0 7-22 00:00: 00 Yes 60mg Take 60 mg by mouth 3 (three) times daily. [facility] nateglinide 60 mg tablet 2019-0 7-22 00:00: 00 Yes 60mg Take 60 mg by mouth 3 (three) times daily. [facility] propranoloL 10 mg tablet 2020-0 7-16 00:00: 00 Yes 10mg Take 10 mg by mouth daily. [facility] propranoloL 10 mg tablet 2020-0 7-16 00:00: 00 Yes 10mg Take 10 mg by mouth daily. [facility] propranoloL 10 mg tablet 2020-0 7-16 00:00: 00 Yes 10mg Take 10 mg by mouth daily. [facility] propranoloL 10 mg tablet 2020-0 7-16 00:00: 00 Yes 10mg Take 10 mg by mouth daily. [facility] propranoloL 10 mg tablet 2020-0 7-16 00:00: 00 Yes 10mg Take 10 mg by mouth daily. [facility] propranoloL 10 mg tablet 2020-0 7-16 00:00: 00 Yes 10mg Take 10 mg by mouth daily. [facility] propranoloL 10 mg tablet 2020-0 7-16 00:00: 00 Yes 10mg Take 10 mg by mouth daily. [facility] propranoloL 10 mg tablet 2020-0 7-16 00:00: 00 Yes 10mg Take 10 mg by mouth daily. [facility] propranoloL 10 mg tablet 2020-0 7-16 00:00: 00 Yes 10mg Take 10 mg by mouth daily. [facility] propranoloL 10 mg tablet 2020-0 7-16 00:00: 00 Yes 10mg Take 10 mg by mouth daily. [facility] propranoloL 10 mg tablet 09-09 00:00: 00 Yes 10mg Take 10 mg by mouth daily. [facility] propranoloL 10 mg tablet 09-09 00:00: 00 Yes 10mg Take 10 mg by mouth daily. [facility] propranoloL 10 mg tablet 09-09 00:00: 00 Yes 10mg Take 10 mg by mouth daily. [facility] gabapentin 300 mg capsule Take 1 capsule 3 times a day by oral route. gabapentin 300 mg capsule Take 1 capsule 3 times a day by oral route. No 1capsul e(s) TID gabapentin 300 mg capsule Take 1 capsule 3 times a day by oral route. [facility] lovastatin 20 mg tablet Take 1 tablet every day by oral route. lovastatin 20 mg tablet Take 1 tablet every day by oral route. No 1 Q1D lovastatin 20 mg tablet Take 1 tablet every day by oral route. [facility] metformin 1,000 mg tablet Take 1 tablet twice a day by oral route. metformin 1,000 mg tablet Take 1 tablet twice a day by oral route. No 1 BID metformin 1,000 mg tablet Take 1 tablet twice a day by oral route. [facility] Tresiba FlexTouch U-100 insulin 100 unit/mL (3 mL) subcutaneou s pen Inject 15 units by subcutaneou s route. Tresiba FlexTouch U-100 insulin 100 unit/mL (3 mL) subcutaneou s pen Inject 15 units by subcutaneou s route. No 15unit( s) Tresiba FlexTouch U-100 insulin 100 unit/mL (3 mL) subcutaneo us pen Inject 15 units by subcutaneo us route. [facility] Ubrelvy 50 mg tablet Take 1 mg every day by oral route. Ubrelvy 50 mg tablet Take 1 mg every day by oral route. No 1mg Q1D Ubrelvy 50 mg tablet Take 1 mg every day by oral route. [facility] Zoloft 100 mg tablet Take 1 tablet every day by oral route. Zoloft 100 mg tablet Take 1 tablet every day by oral route. No 1 Q1D Zoloft 100 mg tablet Take 1 tablet every day by oral route. [facility] Vital Signs Vital Name Observation Time Observation Value Comments S [facility] Systolic blood pressure 2020-01-04 14:25:00 121 mm[Hg] [facility] Diastolic blood pressure 2020-01-04 14:25:00 59 mm[Hg] [facility] Heart rate 2020-01-04 14:25:00 51 /min [facility] Body temperature 2020-01-04 14:25:00 36.22 Pepper [facility] Respiratory rate 2020-01-04 14:25:00 12 /min [facility] Oxygen saturation in Arterial blood by Pulse oximetry 2020-01-04 14:25:00 96 /min [facility] Body height 2019-12-30 15:14:00 177.8 cm [facility] acute hospital Body weight 2019-12-30 15:14:00 69.9 kg [facility] BMI 2019-12-30 15:14:00 22.11 kg/m2 [facility] acute [facility] Systolic blood pressure 2019-12-21 13:47:00 128 mm[Hg] [facility] Diastolic blood pressure 2019-12-21 13:47:00 65 mm[Hg] [facility] Heart rate 2019-12-21 13:47:00 49 /[facility] Oxygen saturation in Arterial blood by Pulse oximetry 2019-12-21 13:47:00 93 /min [facility] Respiratory rate 2019-12-21 13:39:00 13 /min [facility] Body temperature 2019-12-21 13:29:00 36.28 Pepper [facility] Body height 2019-12-15 14:45:00 177.8 cm [facility] Body weight 2019-12-15 14:45:00 69.9 kg [facility] acute [facility] BMI 2019-12-15 14:45:00 22.11 kg/m2 [facility] Systolic blood pressure 2019-11-30 13:45:00 105 mm[Hg] [facility] Diastolic blood pressure 2019-11-30 13:45:00 50 mm[Hg] [facility] Heart rate 2019-11-30 13:45:00 48 /min [facility] Body temperature 2019-11-30 13:45:00 36.56 Pepper [facility] Respiratory rate 2019-11-30 13:45:00 14 /min [facility] Oxygen saturation in Arterial blood by Pulse oximetry 2019-11-30 13:45:00 99 /min [place] [facility] Body height 2019-11-27 17:47:00 177.8 cm [facility] Body weight 2019-11-27 17:47:00 69.9 kg [facility] acute [facility] BMI 2019-11-27 17:47:00 22.11 kg/m2 [facility] Procedures Procedure Date / Time Performed Performing Clinicia n Source REFERRAL- REQUEST/RESPONSE 2023-03-04 06:01:00 Doctor Unassigned, [place] [facility] [place] TIME OR (NON-REPORTABLE) 2020-01-04 14:21:26 Hemant Shrestha [facility] POCT GLUCOSE(AGE >30DAYS) 2020-01-04 13:29:00 Maurilio Raphael [facility] CONSENT/REFUSAL FOR DIAGNOSIS AND TREATMENT 2020-01-01 15:33:47 Doctor Unassigned, [place] [facility] ASSIGNMENT OF BENEFITS 2020-01-01 15:33:30 Docto r Unassigned, [place] [facility] DSU PRE-OP 2019-12-29 06:01:00 Doctor Unass igned, [place] [facility] POCT GLUCOSE(AGE >30DAYS) 2019-12-21 12:13:00 Maurilio Raphael [facility] ASSIGNMENT OF BENEFITS 2019-12-16 13:56:18 Docto r Unassigned, [place] [facility] CONSENT/REFUSAL FOR DIAGNOSIS AND TREATMENT 2019-12-16 13:55:53 Doctor Unassigned, [place] [facility] [place] TIME OR (NON-REPORTABLE) 2019-11-30 13:23:32 Hemant Shrestha [facility] POCT GLUCOSE(AGE >30DAYS) 2019-11-30 12:28:00 Maurilio Raphael [facility] DAY SURGERY - ADC 2019-11-30 05:01:00 Doctor Aracelis ssigned, [place] [facility] COVID-19 (ID NOW RAPID TESTING) 2019-11-27 19:31:00 Hemant Shrestha [facility] ASSIGNMENT OF BENEFITS 2019-11-27 19:12:25 Docto r Unassigned, [place] [facility] DSU PRE-OP 2019-11-26 05:01:00 Doctor Unass igned, [place] [facility] ASSIGNMENT OF BENEFITS 2019-11-24 19:07:36 Docto r Unassigned, [place] [facility] Encounters Start Date/Time End Date/Time Encounter Type Admission Type Attending [facility] Care Facility Care Department Encounter ID Source 2023-02-11 13:27:02 Outpatient Nitish Aldridge [facility] [id number] [facility] 2022-12-12 15:56:00 Outpatient Nitish Aldridge [facility] [id number] [facility] 2020-12-24 02:50:57 [id number] 2020-12-24 00:04:51 [id number] 2020-12-23 22:43:32 [facility] [id number] [facility] 2020-12-23 20:42:29 [facility] [id number] [facility] 2023-04-02 08:45:00 2023-04-02 08:45:00 Outpatient YISEL LIMA CRAIG [facility] [id number] [facility] 2023-03-04 00:00:00 2023-03-04 00:00:00 Orders Only Doctor Unassigned, [place] [facility] [id number] 350.1.13.10 4.2.7.2.686 [id number] [facility] 2020-01-13 00:00:00 2020-01-13 00:00:00 Letter (Out) JuanHandy turner Erlinda [facility] 1.2.840.114 350.1.13.10 4.2.7.2.686 [id number] [facility] 2020-01-04 07:15:00 2020-01-04 08:40:00 Hospital Encounter [facility] 1.2.840.114 350.1.13.10 4.2.7.2.686 [id number] [facility] 2020-01-01 09:34:24 2020-01-01 09:49:24 Laboratory Only Only, Adc Test [place], [facility] 1.2.840.114 350.1.13.10 4.2.7.2.686 [id number] [facility] 2020-01-01 08:30:00 2020-01-01 08:30:00 Outpatient [facility] [id number] [facility] 2019-12-21 06:56:00 2019-12-21 08:59:00 Hospital Encounter [facility] 1.2.840.114 350.1.13.10 4.2.7.2.686 [id number] [facility] 2019-12-18 00:00:00 2019-12-18 00:00:00 Letter (Out) Pcp, Patient Does Not Have A [facility] 1.2.840.114 350.1.13.10 4.2.7.2.686 [id number] [facility] 2019-12-17 01:31:00 2019-12-17 01:31:00 Outpatient Laura-Mbayo _A_AH VFP VFP [id number] [facility] 2019-12-16 08:58:42 2019-12-16 09:13:42 Laboratory Only Only, Adc Test Hemant Shrestha [facility] 1.2.840.114 350.1.13.10 4.2.7.2.686 [id number] [facility] 2019-12-16 09:00:00 2019-12-16 09:00:00 Outpatient R [facility] [id number] [facility] 2019-12-16 00:00:00 2019-12-16 00:00:00 Telephone Only, Adc Test [facility] 1.2.840.114 350.1.13.10 4.2.7.2.686 [id number] [facility] 2019-12-07 00:00:00 2019-12-07 00:00:00 Letter (Out) Handy Martinez [facility] 1.2840.114 350.1.13.10 4.2.7.2.686 [id number] [facility] 2019-12-07 00:00:00 2019-12-07 00:00:00 Natasha mackenzie, OIM CONSULTANT: [address] [facility], [address], [place] [address] , Ph. P [facility] - [email or web address]@_ [place] [employer] [id number] [facility] 2019-11-30 07:14:00 2019-11-30 09:09:00 Hospital Encounter Hemant Shrestha [facility] [place] 1.2.840.114 350.1.13.10 4.2.7.2.686 [id number] [facility] 2019-11-30 00:00:00 2019-11-30 00:00:00 Orders Only Doctor Unassigned, [place] [facility] 1.2.840.114 350.1.13.10 4.2.7.2.686 [id number] [facility] 2019-11-27 14:22:37 2019-11-27 14:37:37 Laboratory Only Only, Adc Test [place], [facility] 1.840.114 350.1.13.10 4.2.7.2.686 [id number] [facility] 2019-11-27 14:30:00 2019-11-27 14:30:00 Outpatient R [facility] [id number] [facility] 2019-11-27 00:00:00 2019-11-27 00:00:00 Orders Only Doctor Unassigned, [place] [id number] 350.1.13.10 4.2.7.2.686 [id number] [facility] 2019-11-24 15:15:00 2019-11-24 15:15:00 Outpatient R [facility] [id number] [facility] 2019-11-24 14:08:39 2019-11-24 14:23:39 Barrel Coater Visit Pob, Adc Lab Main [facility] 1..840.114 350.1.13.10 4.2.7.2.686 [id number] [facility] 2019-11-24 00:00:00 2019-11-24 00:00:00 Orders Only Doctor Unassigned, [place] [facility] 1.840.114 350.1.13.10 4.2.7.2.686 [id number] [facility] 2019-07-27 06:23:00 2019-07-27 06:23:00 Outpatient Laura-Mbayo _A_AH VFP VFP [id number] [facility] e 2019-07-06 02:33:00 2019-07-06 02:33:00 Outpatient Laura-Mbayo _A_AH VFP VFP [id number] [facility] e 2019-05-25 00:00:00 2019-05-25 00:00:00 Natasha mackenzie, OIM CONSULTANT: [address], [address], [place] [address] , Ph. [facility] - VM_[email or web address]_V@_ [place] [employer] [id number] [facility] 2019-04-15 07:15:00 2019-04-15 07:15:00 Outpatient Baldomero _A_AH [facility] [id number] [facility] Results Test Description Test Time Test Comments Results Resul t Comments Source [place] TIME OR (NON-REPORTABLE) 2020-01-04 14:25:21 These images do not require a Radiology diagnostic report. [facility] [id number] 12:13:00* Test Item Value Reference Range Interpretation Comme nts POCT Glu (age>30days) (test code = 3342) 114 mg/dL 70-110 A Lab Interpretation (test cod e = [id number]) [facility]-11-30 13:24:35 These images do not require a Radiology diagnostic report.[facility] [id number] 12:28:00* Test Item Value Reference Range Interpretation Comme nts POCT Glu (age>30days) (test code = 3342) 97 mg/dL 70-110 [facility] NOW RAPID TESTING)2019-11-27 19:58:00* Test Item Value Reference Range Interpretation Comme nts SARS-CoV-2 Rapid ID NOW (test code = 37508-9) Not Detected Not Detected VANDANA (test code = VANDANA) ID NOW COVID-19 As say is an isothermal nucleic acid amplification test intended for the qualitative detection of nucleic acid from SARS-CoV-2 viral RNA in nasopharyngeal (OIM CONSULTANT) specimens. It is used under Emergency [...] patient testing if clinically indicated. Lab Interpretation (test code = 34966-5) Normal [facility]
[2023-03-17 17:14] LABS: Absolute Lymphocytes (CBC) 1.6 K/uL (0.7-4.9); Lymphocytes % 27.5 % (15.3-44.8); MCV 83.3 fL (80-100); MPV 7.8 fL (7.6-11.3); Platelets 241 thou/uL (152-406)
[2023-03-17 17:21] LABS: Protime INR 1.07
[2023-03-17 17:31] LABS: SARS-CoV-2 Antigen Rapid Res Negative (Negative)
[2023-03-17 17:35] LABS: ALT/SGPT 19 U/L (16-61); AST/SGOT 20 U/L (15-37); Albumin 3.1 g/dL (3.4-5.0); Alkaline Phosphatase 187 U/L (45-117); BUN Blood Urea Nitrogen 36 mg/dL (7-18); Bicarbonate 29 mEq/L (21-32); Bilirubin Direct < 0.1 mg/dL (0-0.2); Bilirubin Indirect, Calculated ND mg/dL (0.2-0.8); Bilirubin Total 0.3 mg/dL (0.2-1.0); Glomerular Filtration Rate 56 ml/min (=/>90); Glucose Level 289 mg/dL (74-106); NT PRO-BNP 206 pg/mL (<450); Potassium 4.6 mEq/L (3.5-5.1); Protein, Total 7.5 g/dL (6.4-8.2); Sodium Level 137 mEq/L (136-145); Troponin High Sensitivity 6.7 pg/mL (<58.9)
--- NOTE | 2023-03-17 17:44 | ER ---
Nurse's Notes [facility] Name: Mati Aragon Age: 77 yrs Sex: Male : 1945 Arrival Date: 03/17/2023 Time: 16:26 Bed 13 Private MD: Diagnosis: Acute upper respiratory infection, unspecified Presentation: 03/17 16:35 Chief complaint: Patient states: has congestion, runny nose, cough. When I lay down I ko1 feel like my lungs fill up with fluid and its hard to breathe for about a week. Coronavirus screen: congestion, cough unrelated to allergies, runny nose, shortness of breath, Client presents with at least one sign or symptom that may indicate coronavirus-19. Standard/surgical mask placed on the client. Ebola Screen: No symptoms or risks identified at this time. Initial Sepsis Screen: Does the patient meet any 2 criteria? No. Patient's initial sepsis screen is negative. Does the patient have a suspected source of infection? No. Patient's initial sepsis screen is negative. Risk Assessment: Do you want to hurt yourself or someone else? Patient reports no desire to harm self or others. Onset of symptoms is unknown. 16:35 Method Of Arrival: Ambulatory ko1 16:35 Acuity: ROSIE 3 ko1 Triage Assessment: 16:38 General: Appears in no apparent distress. ill, Behavior is calm, cooperative, ko1 appropriate for age. Pain: Complains of pain in headache. Respiratory: Reports shortness of breath cough that is Onset: The symptoms/episode began/occurred gradually, the patient has moderate shortness of breath. Historical: - Allergies: 16:38 No Known Allergies; ko1 - Home Meds: 17:29 Tresiba FlexTouch U-100 100 unit/mL (3 mL) subcutaneous inpn [Active]; Zoloft 100 mg sb4 Oral tab 1 tab once daily [Active]; gabapentin 300 mg Oral cap 2 caps 2 times per day [Active]; lovastatin 20 mg Oral tab 1 tab daily [Active]; aspirin 81 mg Oral TbEC 1 tab once daily [Active]; Ambien 10 mg Oral tab 1 tab every day at bedtime [Active]; Lasix 20 mg Oral tablet 1 tab daily [Active]; tamsulosin 0.4 mg oral capsule 1 cap daily [Active]; donepezil 10 mg oral tablet 1 tab daily [Active]; - PMHx: 16:38 Diabetes - IDDM; Hyperlipidemia; Hypothyroidism; ko1 17:19 Dementia; sb4 - Immunization history:: Adult Immunizations up to date. - Social history:: Smoking status: Patient/guardian denies using tobacco, but has a distant history of tobacco abuse. Screenin:57 [facility] ED Fall Risk Assessment (Adult) History of falling in the last 3 months, tl4 including since admission No falls in past 3 months (0 pts) Confusion or Disorientation No (0 pts) Intoxicated or Sedated No (0 pts) Impaired Gait No (0 pts) Mobility Assist Device Used No (0 pt) Altered Elimination No (0 pt) Score/Fall Risk Level 0 - 2 = Low Risk Oriented to surroundings, Maintained a safe environment, Educated pt \T\ family on fall prevention, incl call for assistance when getting out of bed, Assessed \T\ reinforced patient's understanding of fall precautions, Provided non-skid footwear. 17:58 Abuse screen: Denies threats or abuse. Denies injuries from another. Nutritional tl4 screening: No deficits noted. Tuberculosis screening: No symptoms or risk factors identified. Assessment: 16:50 General: Appears in no apparent distress. Behavior is calm, cooperative. Pain: Denies tl4 pain. Neuro: No deficits noted. Cardiovascular: Denies chest pain, lightheadedness, palpitations, Rhythm is sinus rhythm. Respiratory: Reports shortness of breath Airway is patent Respiratory effort is even, unlabored, Breath sounds with wheezes bilaterally. GI: No deficits noted. No signs and/or symptoms were reported involving the gastrointestinal system. : No deficits noted. No signs and/or symptoms were reported regarding the genitourinary system. EENT: No deficits noted. No signs and/or symptoms were reported regarding the EENT system. Vital Signs: 16:35 BP 152 / 59; Pulse 73; Resp 20; Temp 98.4; Pulse Ox 100% ; ko1 16:50 BP 141 / 63; Pulse 81; Resp 18; Pulse Ox 99% on R/A; Pain 0/10; tl4 17:21 BP 155 / 72; Pulse 69; Resp 18; Pulse Ox 98% on R/A; tl4 17:54 BP 146 / 62; Pulse 74; Resp 16; Pulse Ox 99% on R/A; Pain 0/10; tl4 16:50 Pain Scale: Adult tl4 17:54 Pain Scale: Adult tl4 ED Course: 16:29 Patient arrived in ED. mg5 16:31 Geovanna Jaime PA-C is PHCP. sb4 16:31 Chirag Bryan MD is Attending Physician. sb4 16:38 Triage completed. ko1 16:38 Arm band placed on right wrist. Patient placed in an exam room, on a stretcher, on ko1 satellite project site monitor, on pulse oximetry, Patient notified of wait time. 16:50 Bennie Dumas is Primary Nurse. tl4 16:58 Flu Sent. cm10 16:59 SARS RAPID Sent. cm10 16:59 BMP Sent. cm10 16:59 CBC with Diff Sent. cm10 16:59 Hepatic Function Sent. cm10 16:59 Magnesium Sent. cm10 16:59 NT PRO-BNP Sent. cm10 16:59 PT-INR Sent. cm10 16:59 Ptt, Activated Sent. cm10 16:59 Troponin HS Sent. cm10 16:59 Initial lab(s) drawn, by me, sent to lab. COVID swab sent to lab. Flu and/or RSV swab cm10 sent to lab. Inserted saline lock: 20 gauge in right forearm, using aseptic technique. Blood collected. 17:33 XRAY Chest Pa And Lat (2 Views) In Process Unspecified. EDMS 17:58 Patient has correct armband on for positive identification. Placed in gown. Bed in low tl4 position. Call light in reach. Side rails up X2. Provided Education on: ED process. 17:58 No provider procedures requiring assistance completed. IV discontinued, intact, tl4 bleeding controlled, No redness/swelling at site. Pressure dressing applied. Administered Medications: 17:06 Drug: DuoNeb Nebulize (3:1) (2.5 mg - 0.5 mg) 3 ml Nebulizer once Route: Nebulizer; tl4 17:53 Follow up: Response: Wheezing diminished tl4 17:48 CANCELLED (Patient Refused): ns 0.9% 500 ml IV at bolus once sb4 Medication: 17:57 VIS not applicable for this client. tl4 Outcome: 17:43 Discharge ordered by . sb4 18:00 Discharged to home ambulatory, tl4 18:00 Condition: stable 18:00 Discharge instructions given to patient, Instructed on discharge instructions, follow up and referral plans. medication usage, Demonstrated understanding of instructions, follow-up care, medications, Prescriptions given X 3, 18:04 Patient left the ED. tl4 Signatures: Dispatcher [employer] EDMS Madai Carter RN RN ko1 Geovanna Jaime PA-C PAEloy sb4 Penny Romo RN RN cm10 [place], [place] mg5 Bennie Dumas tl4 Corrections: (The following items were deleted from the chart) 17:32 17:19 Home Meds: Tresiba FlexTouch U-100 100 unit/mL (3 mL) subcutaneous inpn sb4 [Inactive]; sb4 17:32 17:19 Home Meds: Zoloft 100 mg Oral tab 1 tab once daily [Inactive]; sb4 sb4 17:32 17:19 Home Meds: gabapentin 300 mg Oral cap 3 times per day [Inactive]; sb4 sb4 17:32 17:19 Home Meds: lovastatin 20 mg Oral tab [Inactive]; sb4 sb4 17:32 17:19 Home Meds: aspirin 81 mg Oral TbEC 1 tab once daily [Inactive]; sb4 sb4 17:32 17:19 Home Meds: Ambien 10 mg Oral tab [Inactive]; sb4 sb4 17:58 17:57 Clinical [facility] Withdrawal Assessment for Alcohol, revised (CIWA-Ar): tl4 tl4 17:59 17:53 General: Appears in no apparent distress. Behavior is calm, cooperative, tl4 tl4 17:59 17:53 Pain: Denies pain. tl4 tl4 17:59 17:53 Neuro: No deficits noted. tl4 tl4 17:59 17:53 Cardiovascular: Denies chest pain, lightheadedness, palpitations, Rhythm is sinus tl4 rhythm tl4 17:59 17:53 Respiratory: Reports shortness of breath Airway is patent Respiratory effort is tl4 even, unlabored, Breath sounds with wheezes bilaterally. tl4 17:59 17:53 GI: No deficits noted. No signs and/or symptoms were reported involving the tl4 gastrointestinal system. tl4 17:59 17:53 : No deficits noted. No signs and/or symptoms were reported regarding the tl4 genitourinary system. tl4 17:59 17:53 EENT: No deficits noted. No signs and/or symptoms were reported regarding the tl4 EENT system. tl4
--- NOTE | 2023-03-17 17:44 | EDPHYS ---
Physician Documentation [facility] Name: Mati Aragon Age: 77 yrs Sex: Male : 1945 Arrival Date: 03/17/2023 Time: 16:26 Bed 13 Private MD: ED Physician Chirag Bryan HPI: 03/17 16:41 This 77 yrs old Male presents to ER via Ambulatory with complaints of shortness of sb4 breath. 16:42 patient with history of hyperlipidemia, diabetes, CHF, chronic neck pain, dementia sb4 reports worsening sob over the past 2 weeks. states it's worse when he lays flat, has wheezing. also reports malaise. denies sick contacts. no fevers. compliant with medications. Historical: - Allergies: 16:38 No Known Allergies; ko1 - Home Meds: 17:29 Tresiba FlexTouch U-100 100 unit/mL (3 mL) subcutaneous inpn [Active]; Zoloft 100 mg sb4 Oral tab 1 tab once daily [Active]; gabapentin 300 mg Oral cap 2 caps 2 times per day [Active]; lovastatin 20 mg Oral tab 1 tab daily [Active]; aspirin 81 mg Oral TbEC 1 tab once daily [Active]; Ambien 10 mg Oral tab 1 tab every day at bedtime [Active]; Lasix 20 mg Oral tablet 1 tab daily [Active]; tamsulosin 0.4 mg oral capsule 1 cap daily [Active]; donepezil 10 mg oral tablet 1 tab daily [Active]; - PMHx: 16:38 Diabetes - IDDM; Hyperlipidemia; Hypothyroidism; ko1 17:19 Dementia; sb4 - Immunization history:: Adult Immunizations up to date. - Social history:: Smoking status: Patient/guardian denies using tobacco, but has a distant history of tobacco abuse. ROS: 16:42 Constitutional: Positive for fatigue, malaise, poor PO intake, sb4 16:42 Respiratory: Positive for cough, dyspnea on exertion, orthopnea, shortness of breath, wheezing, 16:42 All other systems are negative, 17:45 Abdomen/GI: Negative for abdominal pain, nausea, vomiting, diarrhea, and constipation, sb4 Exam: 16:42 Constitutional: This is a well developed, well nourished patient who is awake, alert, sb4 and in no acute distress. Head/Face: Normocephalic, atraumatic. Eyes: Extra-ocular motions intact. Periorbital areas with no swelling, redness, or edema. ENT: Mucous membranes moist. Cardiovascular: Regular rate and rhythm with a normal S1 and S2. Abdomen/GI: Soft, non-tender, no distension. Skin: Warm, dry with normal turgor. Normal color with no rashes, no lesions, and no evidence of cellulitis. MS/ Extremity: Pulses equal, no cyanosis. Neurovascular intact. Full, normal range of motion. Neuro: Awake and alert, GCS 15, oriented to person, place, time, and situation. Motor strength 5/5 in all extremities. Sensory grossly intact. 16:42 Respiratory: the patient does not display signs of respiratory distress, Respirations: normal, Breath sounds: wheezing: expiratory that is moderate, is heard in the right posterior upper lobe, Vital Signs: 16:35 BP 152 / 59; Pulse 73; Resp 20; Temp 98.4; Pulse Ox 100% ; ko1 16:50 BP 141 / 63; Pulse 81; Resp 18; Pulse Ox 99% on R/A; Pain 0/10; tl4 17:21 BP 155 / 72; Pulse 69; Resp 18; Pulse Ox 98% on R/A; tl4 17:54 BP 146 / 62; Pulse 74; Resp 16; Pulse Ox 99% on R/A; Pain 0/10; tl4 16:50 Pain Scale: Adult tl4 17:54 Pain Scale: Adult tl4 MDM: 16:32 Patient medically screened. sb4 16:42 Differential diagnosis: asthma, Bronchitis CHF exacerbation, Chronic Obstructive sb4 Pulmonary Disease pneumonia. 17:33 Independent interpretation of the following test(s) in the Emergency Department X-Ray: sb4 My interpretation is my interpretation of the chest xray images are no consolidation/infiltrate. 17:42 Antibiotic administration: The patient is discharged and will get outpatient sb4 antibiotics, Zithromax. Data reviewed: vital signs, nurses notes, lab test result(s), EKG, radiologic studies, and as a result, I will discharge patient. Consideration of Admission/Observation Escalation of care including admission/observation considered. Care significantly affected by the following chronic conditions: Diabetes, Hypertension. Counseling: I had a detailed discussion with the patient and/or guardian regarding the historical points, exam findings, and any diagnostic results supporting the discharge/admit diagnosis, the presence of at least one elevated blood pressure reading (>120/80) during this emergency department visit, lab results, radiology results, to return to the emergency department if symptoms worsen or persist or if there are any questions or concerns that arise at home. 03/17 16:40 Order name: BMP; Complete Time: 17:37 sb4 03/17 16:40 Order name: CBC with Diff; Complete Time: 17:15 sb4 03/17 16:40 Order name: Hepatic Function; Complete Time: 17:37 sb4 03/17 16:40 Order name: Magnesium; Complete Time: 17:37 sb4 03/17 16:40 Order name: NT PRO-BNP; Complete Time: 17:37 sb4 03/17 16:40 Order name: PT-INR; Complete Time: 17:23 sb4 03/17 16:40 Order name: Ptt, Activated; Complete Time: 17:23 sb4 03/17 16:40 Order name: Troponin HS; Complete Time: 17:37 sb4 03/17 16:40 Order name: SARS RAPID; Complete Time: 17:33 sb4 03/17 16:40 Order name: Flu; Complete Time: 17:39 sb4 03/17 16:40 Order name: XRAY Chest Pa And Lat (2 Views) 03/17 16:40 Order name: EKG; Complete Time: 16:42 03/17 16:40 Order name: Cardiac monitoring; Complete Time: 16:59 03/17 16:40 Order name: EKG - Nurse/Tech; Complete Time: 16:59 03/17 16:40 Order name: IV Saline Lock; Complete Time: 16:59 sb03/17 16:40 Order name: Labs collected and sent; Complete Time: 16:59 sb4 03/17 16:40 Order name: O2 Per Protocol; Complete Time: 16:59 03/17 16:40 Order name: O2 Sat Monitoring; Complete Time: 16:59 sb4 EC:00 Rate is 65 beats/min. Rhythm is regular, Sinus Rhythm with PACs. MA interval is normal sb4 at 168 msec. QRS interval is normal at 94 msec. QT interval is normal at 418 msec. No Q waves. T waves are Normal. No ST changes noted. Clinical impression: No evidence of ischemia. Interpreted by me. Reviewed by me. Administered Medications: 17:06 Drug: DuoNeb Nebulize (3:1) (2.5 mg - 0.5 mg) 3 ml Nebulizer once Route: Nebulizer; tl4 17:53 Follow up: Response: Wheezing diminished tl4 17:48 CANCELLED (Patient Refused): ns 0.9% 500 ml IV at bolus once sb4 Disposition: 18:34 Co-signature as Attending Physician, Chirag Bryan MD I reviewed the patient's care rn provided by the Advanced Practice Provider and agree with the diagnosis and treatment plan. Disposition Summary: 03/17/23 17:43 Discharge Ordered Notes: Location: Home sb4 Problem: an ongoing problem sb4 Symptoms: have improved sb4 Condition: Stable sb4 Diagnosis - Acute upper respiratory infection, unspecified sb4 Followup: sb4 - With: Emergency Department - When: As needed - Reason: Fever > 102 F, Trouble breathing, Worsening of condition Discharge Instructions: - Discharge Summary Sheet sb4 - Upper Respiratory Infection, Adult, [id number] sb4 Forms: - Medication Reconciliation Form sb4 - Thank You Letter sb4 - Antibiotic Education sb4 - Prescription Opioid Use sb4 - Patient Portal Instructions sb4 - Leadership Thank You Letter sb4 Prescriptions: - albuterol sulfate 90 mcg/actuation Inhalation Aerosol Powder, Breath Activated - administer 2 inhalation INHALATION route every 6 hours as needed for shortness sb4 of breath or wheezing; 1 Applicator; Refills: 0, Product Selection Permitted - azithromycin 250 mg Oral tablet - take 1 dose pack ORAL route as directed on dose pack For 250 mg dose pack: take sb4 500 mg today (day 1), then 250 mg for 4 days (days 2-5); 1 Pack; Refills: 0, Product Selection Permitted - Prednisone 20 mg Oral Tablet - take 1 tablet ORAL route every 12 hours for 5 days; 10 tablet; Refills: 0, sb4 Product Selection Permitted Signatures: Dispatcher [employer] EDChirag Foss MD MD rn Oliver, Kathy, RN RN Geovanna Gonzales PA-C PA-C sb4 LogdaBennie ren tl4 Corrections: (The following items were deleted from the chart) 17:14 16:42 patient reports worsening sob over the past 2 weeks. states it's worse when he sb4 lays flat, has wheezing. also reports malaise. denies sick contacts. no fevers. compliant with medications. sb4 17:19 16:42 patient with history of hypertension, hyperlipidemia, diabetes, CHF, chronic neck sb4 pain reports worsening sob over the past 2 weeks. states it's worse when he lays flat, has wheezing. also reports malaise. denies sick contacts. no fevers. compliant with medications. sb4 17:32 17:19 Home Meds: Tresiba FlexTouch U-100 100 unit/mL (3 mL) subcutaneous inpn sb4 [Inactive]; sb4 17:32 17:19 Home Meds: Zoloft 100 mg Oral tab 1 tab once daily [Inactive]; sb4 sb4 17:32 17:19 Home Meds: gabapentin 300 mg Oral cap 3 times per day [Inactive]; sb4 sb4 17:32 17:19 Home Meds: lovastatin 20 mg Oral tab [Inactive]; sb4 sb4 17:32 17:19 Home Meds: aspirin 81 mg Oral TbEC 1 tab once daily [Inactive]; sb4 sb4 17:32 17:19 Home Meds: Ambien 10 mg Oral tab [Inactive]; sb4 sb4 17:34 16:42 patient with history of hypertension, hyperlipidemia, diabetes, CHF, chronic neck sb4 pain, dementia reports worsening sob over the past 2 weeks. states it's worse when he lays flat, has wheezing. also reports malaise. denies sick contacts. no fevers. compliant with medications. sb4 17:48 17:38 NS 0.9% IV 500 ml IV at bolus once ordered. sb4 sb4
--- NOTE | 2023-03-17 18:05 | RAD REPORT ---
EXAM DESCRIPTION: RAD - Chest Pa And Lat (2 Views) - 03/17/2023 5:32 pm CLINICAL HISTORY: Chest pain;Congestion;Cough COMPARISON: Chest Pa And Lat (2 Views) dated 09/21/2020; Chest Pa And Lat (2 Views) dated 07/28/2019; C hest Single View dated 07/16/2019 FINDINGS: Lines: None. Lungs: No evidence of edema or pneumonia. Pleural: No significant pleural effusions or pneumothorax. Cardiac: The heart size is within normal limits. Mediastinum: Within normal limits. Bones: No acute fractures. Other: None IMPRESSION: No acute cardiopulmonary disease.
[2023-03-17 19:13] VITALS: TEMP 98.4; O2SAT 99
[2023-03-17 19:30] VITALS: BP 146/62
--- NOTE | 2023-03-18 16:52 | EKG ---
Test Date: 2023-03-17 Test Time: 16:56:46 [employer] Teacher Assistant: TL MEASUREMENT RESULTS: Intervals: Rate: 65 NE: 168 QRSD: 94 QT: 418 QTc: 434 [place]: P: 72 NE: 168 QRS: -47 T: 63 INTERPRETIVE STATEMENTS: Sinus rhythm with premature atrial complexes Left anterior fascicular block Minimal voltage criteria for LVH, may be normal variant Abnormal ECG Compared to ECG 09/21/2020 14:25:27 Atrial premature complex(es) now present Left anterior fascicular block now present Left ventricular hypertrophy now present Left-axis deviation no longer present Electronically Signed On 03-18-23 16:51:17 [employer] by Agustin Quintana
== END ==
LOC: ER 16:26
DX: J06.9 Acute upper respiratory infection, unspecified (principal); Z11.52 Encounter for screening for COVID-19; E11.9 Type 2 diabetes mellitus without complications; Z79.4 Long term (current) use of insulin; F03.90 Unspecified dementia, unspecified severity, without behavioral disturbance, psychotic disturbance, mood disturbance, and anxiety; E03.9 Hypothyroidism, unspecified; E78.5 Hyperlipidemia, unspecified; Z79.82 Long term (current) use of aspirin
CPT/HCPCS: 93005; 85025; 80048; 36415; 83735; 85610; 80076; 85730; 84484; 83880; 87804 ×2; 71046; 94640; 99284; 87811; J7613; J7644